=== PATIENT | female | born 1975 | race Caucasian/White ===

== ENCOUNTER 2019-11-08 14:52 | Outpatient (CLI) | payer OTHER, SELFPAY ==
[2019-11-08 15:13] LABS: Hemoglobin A1C 10.4 % (<5.7)
== END 2019-11-08 14:53 | disposition home or self-care (01) ==
LOC: ANHLAB 14:54
PROVIDERS: PCP Family Medicine; Visit Provider Nurse Practitioner Family
DX: E11.9 Type 2 diabetes mellitus without complications (principal)
CPT/HCPCS: 36415; 83036

== ENCOUNTER 2020-02-16 08:32 | Emergency (ER) | payer OTHER, SELFPAY ==
[2020-02-16 08:50] VITALS: BP 153/90; PULSE 86; RESP 16; TEMP 36.4; O2SAT 98
--- NOTE | 2020-02-16 09:04 | ED.GENADULT ---
HPI - General Adult General Chief complaint: Dental/Oral Stated complaint: abscess tooth Time Seen by Provider: 02/16/20 09:04 Source: patient Mode of arrival: ambulatory Limitations: no limitations History of Present Illness HPI narrative: Kelli Layne is a 44 yo female with PMH of uncontrolled DM, hi cholesterol, with facial swelling and dental pain that started 6 hoursago. Recurrent issue with poor dental health Related Data Home Medications Medication Instructions Recorded Confirmed alprazolam [Xanax] 0.5 mg PO QID 02/16/20 02/16/20 insulin glulisine U-100 [Apidra 02/16/20 U-100 Insulin] metformin 1,000 mg PO BID 02/16/20 02/16/20 sertraline [Zoloft] 100 mg PO QID 02/16/20 02/16/20 sitagliptin [Januvia] 100 mg PO DAILY 02/16/20 02/16/20 Allergies Allergy/AdvReac Type Severity Reaction Status Date / Time citalopram Allergy Unknown Unknown Verified 02/16/20 09:11 codeine Allergy Unknown Unknown Verified 02/16/20 09:11 Review of Systems Review of Systems: Narrative: CONSTITUTIONAL: Denies fever, chills, sweats. EYES: Denies visual changes, redness, discharge. ENT: Denies rhinorrhea, congestion, sore throat, otalgia. Left-sided lower jaw swelling, lower back has been CARDIOVASCULAR: Denies chest pain, palpitations, edema. RESPIRATORY: Denies dyspnea, wheezing, cough GASTROINTESTINAL: Denies abdominal pain, nausea, vomiting, diarrhea. GENITOURINARY: Denies dysuria, hematuria, abnormal discharge SKIN: Denies rash or itching. NEUROLOGIC: Denies numbness, or focal weakness. PSYCHIATRIC: Denies anxiety or depression. [facility] Family History Family History Grandparent Cerebrovascular accident Family history of lung cancer Diabetes mellitus Social History Social History Smoking status: Former smoker Alcohol intake: current Gender identity (if verbalized by the patient): Female Comments At time of signature, I agree with nursing past medical, surgical, social and family history. There is no relevant family history pertinent to the presenting complaint. BP elevated with pain today Exam Narrative: Exam Narrative: GENERAL: This is a well-nourished, well-developed patient, in moderate distress. HEAD: normocephalic, atraumatic. EYES: Sclera clear/white. Vision is grossly intact. EARS: External ears normal. Hearing grossly intact. NOSE: External nose normal without nasal discharge, nares without redness, no rhinorrhea. THROAT: Mucous membranes moist, posterior pharynx clear- L lower jaw swelling- from lower teeth blackened with gum erythema NECK: Neck supple, non-tender CARDIOVASCULAR: Regular rate and rhythm without murmurs, gallops, or rubs. RESPIRATORY: Clear to auscultation. Breath sounds equal bilaterally. No wheezes, rales, or rhonchi. GASTROINTESTINAL: Abdomen soft, non-tender, SKIN: warm, intact with no suspicious lesions or rash, good texture and turgor. NEURO: awake, alert, and oriented to person, place and time. There were no obvious focal neurologic abnormalities. Steady gait EXTREMITIES: Normal range of motion. BACK: Nontender without deformity Course Course Emergency Course: Started on amoxicillin and ibuprofen 800 mg 3 times daily Vital Signs Vital signs: Vital Signs Temperature 97.6 F 02/16/20 08:50 Pulse Rate 86 02/16/20 08:50 Respiratory Rate 16 02/16/20 08:50 Blood Pressure 153/90 H 02/16/20 08:50 Pulse Oximetry 98 02/16/20 08:50 Temperature 97.6 F 02/16/20 08:50 Pulse Rate 86 02/16/20 08:50 Respiratory Rate 16 02/16/20 08:50 Blood Pressure 153/90 H 02/16/20 08:50 Pulse Oximetry 98 02/16/20 08:50 Medical Decision Making Differential Diagnosis Differential Diagnosis: Dental pain versus dental abscess versus viral illness Vital Signs Vital Signs: Vital Signs Temperature 97.6 F 02/16/20 08:50 Pulse Rate 86
== END 2020-02-16 09:18 | disposition home or self-care (01) ==
PROVIDERS: Emergency Provider Nurse Practitioner; PCP Family Medicine
DX: K04.7 Periapical abscess without sinus (principal); E78.00 Pure hypercholesterolemia, unspecified; Z87.891 Personal history of nicotine dependence; Z79.4 Long term (current) use of insulin; E11.9 Type 2 diabetes mellitus without complications
CPT/HCPCS: 99213; G0463

== ENCOUNTER 2020-03-12 10:16 | Outpatient (CLI) | payer OTHER, SELFPAY ==
[2020-03-12 11:06] LABS: Hemoglobin 15.7 g/dL (12.0-15.0); Mean Corpuscular HGB Conc 34.1 g/dl (32-36); Mean Corpuscular Hemoglobin 30.1 pg (26-34); Mean Corpuscular Volume 88.3 fl (80-100); Mean Platelet Volume 9.4 fl (7.4-10.4); Platelet Count Result 299 k/mm3 (150-375); Red Blood Count 5.21 M/mm3 (4.2-5.4); Red Cell Distribution Width 12.5 % (11.5-14.5); White Blood Count 11.9 K/mm3 (4.5-10.0)
[2020-03-12 11:16] LABS: Hemoglobin A1C 9.6 % (<5.7)
[2020-03-12 11:17] LABS: Alanine Aminotransferase 16 U/L (4-35); Albumin Level 4.1 g/dL (3.5-5.1); Alkaline Phosphatase 77 U/L (38-126); Aspartate Amino Transferase 18 U/L (14-36); Bilirubin,Total 0.4 mg/dL (0.2-1.3); Blood Urea Nitrogen 14 mg/dL (7-17); Calcium 8.9 mg/dL (8.4-10.2); Carbon Dioxide 30 mmol/L (22-30); Chloride 98 mmol/L (98-107); Cholesterol 308 mg/dL (0-200); Estimated Glomerular Filt Rate > 60; Glucose 302 mg/dL (65-105); HDL Direct 44 mg/dL; Potassium 4.3 mmol/L (3.4-5.0); Sodium 133 mmol/L (137-145); Triglycerides 248 mg/dL (<150)
[2020-03-12 11:28] LABS: LDL Cholesterol Direct 222 mg/dL
== END 2020-03-12 10:17 | disposition home or self-care (01) ==
LOC: ANHLAB 10:17
PROVIDERS: PCP Family Medicine; Visit Provider Nurse Practitioner Family
DX: E78.5 Hyperlipidemia, unspecified (principal); I10 Essential (primary) hypertension; E11.65 Type 2 diabetes mellitus with hyperglycemia; F41.9 Anxiety disorder, unspecified
CPT/HCPCS: 36415; 80053; 80061; 83036; 84443; 85027

== ENCOUNTER 2020-03-27 08:40 | Outpatient (CLI) | payer OTHER, SELFPAY ==
[2020-03-27 09:09] LABS: Basophils Percent Auto 0.4 % (0.2-1.2); Eosinophils Absolute Auto 0.3 K/mm3 (0-0.3); Eosinophils Percent Auto 3.5 % (0-4.4); Hematocrit 44.5 % (37.0-47.0); Hemoglobin 15.1 g/dL (12.0-15.0); Immature Granulocyte Absolute 0.02 K/mm3 (0.00-0.031); Immature Granulocyte Percent A 0.2 % (0-0.5); Lymphocytes Absolute Auto 2.36 K/mm3 (0.9-3.2); Lymphocytes Percent Auto 24.2 % (18.3-44.2); Mean Corpuscular HGB Conc 33.9 g/dl (32-36); Mean Corpuscular Hemoglobin 29.8 pg (26-34); Mean Corpuscular Volume 87.9 fl (80-100); Monocytes Absolute Auto 0.6 K/mm3 (0.1-0.6); Monocytes Percent Auto 6.6 % (2.6-8.5); Neutrophils Absolute Auto 6.3 K/mm3 (1.3-6.7); Neutrophils Percent Auto 65.1 % (45.5-73.1); Platelet Count Result 287 k/mm3 (150-375); Red Blood Count 5.06 M/mm3 (4.2-5.4); Red Cell Distribution Width 12.6 % (11.5-14.5); White Blood Count 9.7 K/mm3 (4.5-10.0)
[2020-03-27 09:32] LABS: Blood Urea Nitrogen 12 mg/dL (7-17); Calcium 8.8 mg/dL (8.4-10.2); Carbon Dioxide 28 mmol/L (22-30); Chloride 99 mmol/L (98-107); Estimated Glomerular Filt Rate > 60; Glucose 307 mg/dL (65-105); Sodium 133 mmol/L (137-145)
[2020-03-27 09:49] LABS: Potassium 4.2 mmol/L (3.4-5.0)
== END 2020-03-27 08:41 | disposition home or self-care (01) ==
PROVIDERS: PCP Family Medicine; Visit Provider Nurse Practitioner Family
DX: D72.9 Disorder of white blood cells, unspecified (principal); E87.1 Hypo-osmolality and hyponatremia
CPT/HCPCS: 36415; 80048; 85025

== ENCOUNTER 2020-04-03 09:28 | Outpatient (CLI) | payer OTHER, SELFPAY ==
--- NOTE | ~2020-04-03 | MM_ITS ---
EXAMINATION: MM screening yana BI w farhad HISTORY: Baseline screening mammogram TECHNIQUE: Craniocaudal and mediolateral oblique 3-D tomosynthesis images were obtained and synthetic 2-D images were generated. CAD analysis was submitted and interpreted. COMPARISON: None, baseline BREAST PARENCHYMAL COMPOSITION: There are scattered areas of fibroglandular density. FINDINGS: Scattered benign-appearing calcifications are present. There is no evidence of suspicious m ass, calcification, or architectural distortion to suggest malignancy in either breast. IMPRESSION: 1. No mammographic evidence of malignancy. 2. Recommend routine screening mammography in one year. BI-RADS Category 2: Benign finding(s). Reviewed, dictated and finalized at location A.
== END 2020-04-03 09:29 | disposition home or self-care (01) ==
PROVIDERS: PCP Family Medicine; Visit Provider Nurse Practitioner Family
DX: Z12.31 Encounter for screening mammogram for malignant neoplasm of breast (principal)
CPT/HCPCS: 77063; 77067

== ENCOUNTER 2020-05-07 09:07 | Outpatient (CLI) | payer OTHER, SELFPAY ==
[2020-05-07 09:39] LABS: Alanine Aminotransferase 15 U/L (4-35); Anion Gap 8 mmol/L (8-16); Blood Urea Nitrogen 10 mg/dL (7-17); Calcium 8.5 mg/dL (8.4-10.2); Carbon Dioxide 26 mmol/L (22-30); Chloride 102 mmol/L (98-107); Cholesterol 174 mg/dL (0-200); Creatine Kinase 35 U/L (30-135); Estimated Glomerular Filt Rate > 60; Glucose 269 mg/dL (65-105); HDL Direct 43 mg/dL; Potassium 4.1 mmol/L (3.4-5.0); Sodium 136 mmol/L (137-145); Triglycerides 172 mg/dL (<150)
[2020-05-07 09:50] LABS: LDL Cholesterol Direct 115 mg/dL
== END 2020-05-07 09:08 | disposition home or self-care (01) ==
PROVIDERS: PCP Family Medicine; Visit Provider Nurse Practitioner Family
DX: E78.5 Hyperlipidemia, unspecified (principal); E87.1 Hypo-osmolality and hyponatremia
CPT/HCPCS: 36415; 80048; 80061; 82550; 84460

== ENCOUNTER 2021-01-27 11:25 | Outpatient (CLI) | payer OTHER, SELFPAY ==
--- NOTE | ~2021-01-27 | XR_ITS ---
EXAMINATION: XR shoulder LT min 2V DATE: 01/27/2021 11:41 INDICATION: Left shoulder pain TECHNIQUE: AP internally and externally rotated, AP oblique externally rotated and axillary views of the left shoulder were obtained. COMPARISON: None FINDINGS: Normal alignment. No fracture. Glenohumeral joint is normal. Mild acromioclavicular osteoarthritis. Soft tissues are unremarkable. Visualized portions of the left lung are clear. IMPRESSION: Mild left acromioclavicular osteoarthritis. Reviewed, dictated and finalized at location A.
== END 2021-01-27 11:26 | disposition home or self-care (01) ==
LOC: ANHIMG 11:27
PROVIDERS: PCP Family Medicine; Visit Provider Nurse Practitioner Family
DX: M19.012 Primary osteoarthritis, left shoulder (principal)
CPT/HCPCS: 73030

== ENCOUNTER 2022-01-29 08:25 | Outpatient (CLI) | payer OTHER, SELFPAY ==
[2022-01-29 08:45] LABS: Hematocrit 41.3 % (37.0-47.0); Hemoglobin 12.9 g/dL (12.0-15.0); Mean Corpuscular HGB Conc 31.2 g/dl (32-36); Mean Corpuscular Hemoglobin 25.7 pg (26-34); Mean Corpuscular Volume 82.3 fl (80-100); Mean Platelet Volume 9.3 fl (7.4-10.4); Platelet Count Result 362 k/mm3 (150-375); Red Blood Count 5.02 M/mm3 (4.2-5.4); Red Cell Distribution Width 14.9 % (11.5-14.5); White Blood Count 9.2 K/mm3 (4.5-10.0)
[2022-01-29 08:53] LABS: Alanine Aminotransferase 11 U/L (4-35); Albumin Level 4.4 g/dL (3.5-5.1); Alkaline Phosphatase 61 U/L (38-126); Anion Gap 8 mmol/L (8-16); Aspartate Amino Transferase 21 U/L (14-36); Bilirubin,Total 0.2 mg/dL (0.2-1.3); Blood Urea Nitrogen 8 mg/dL (7-17); Calcium 8.7 mg/dL (8.4-10.2); Carbon Dioxide 24 mmol/L (22-30); Chloride 104 mmol/L (98-107); Cholesterol 159 mg/dL (0-200); Estimated Glomerular Filt Rate > 60; Glucose 165 mg/dL (65-110); HDL Direct 48 mg/dL; Potassium 3.9 mmol/L (3.4-5.0); Sodium 136 mmol/L (137-145); Triglycerides 146 mg/dL (<150)
[2022-01-29 09:05] LABS: LDL Cholesterol Direct 65 mg/dL
[2022-01-29 09:25] LABS: Vitamin D 25 Hydroxy 21.7 ng/mL
[2022-01-29 09:31] LABS: MALB Creatinine Ratio 19.4 mg/g (0-30); Microalbumin Urine Random 13.6 mg/L (0-16.7)
== END 2022-01-29 08:26 | disposition home or self-care (01) ==
LOC: ANHLAB 08:28
PROVIDERS: PCP Family Medicine; Visit Provider Nurse Practitioner Family
DX: E78.5 Hyperlipidemia, unspecified (principal); I10 Essential (primary) hypertension; F41.9 Anxiety disorder, unspecified; E55.9 Vitamin D deficiency, unspecified
CPT/HCPCS: 36415; 80053; 80061; 82043; 82306; 84443; 85027

== ENCOUNTER 2022-03-15 11:04 | Outpatient (CLI) | payer OTHER, SELFPAY ==
--- NOTE | ~2022-03-15 | XR_ITS ---
EXAMINATION: XR chest 2V DATE: 03/15/2022 11:31 INDICATION: Other fatigue. Weight loss. TECHNIQUE: Frontal and lateral views of the chest were obtained. COMPARISON: Chest 2 views 01/10/2015, chest CT 08/16/06 FINDINGS: The chest demonstrates clear lungs without pneumonia, pleural effusion, or pneumothorax. Th e heart size is normal. IMPRESSION: 1. No acute cardiopulmonary disease. Reviewed, dictated and finalized at location A.
[2022-03-15 11:47] LABS: Hematocrit 40.6 % (37.0-47.0); Mean Corpuscular Hemoglobin 25.3 pg (26-34); Mean Platelet Volume 9.5 fl (7.4-10.4); Platelet Count Result 348 k/mm3 (150-375); Red Blood Count 5.14 M/mm3 (4.2-5.4); Red Cell Distribution Width 15.3 % (11.5-14.5); White Blood Count 10.9 K/mm3 (4.5-10.0)
[2022-03-15 11:55] LABS: Sodium 138 mmol/L (137-145)
[2022-03-15 21:11] LABS: Iron 34 ug/dL (37-170); Percent Iron Saturation 7 % (20-50)
== END 2022-03-15 11:05 | disposition home or self-care (01) ==
PROVIDERS: PCP Family Medicine; Visit Provider Nurse Practitioner Family
DX: R53.83 Other fatigue (principal); R63.4 Abnormal weight loss; E66.9 Obesity, unspecified; E87.1 Hypo-osmolality and hyponatremia
CPT/HCPCS: 36415; 71046; 83540; 83550; 84295; 85027

== ENCOUNTER 2022-03-16 16:37 | Outpatient (CLI) | payer OTHER, SELFPAY ==
[2022-03-16 17:22] LABS: Iron 31 ug/dL (37-170)
[2022-03-16 17:31] LABS: Percent Iron Saturation 6 % (20-50)
== END 2022-03-16 16:38 | disposition home or self-care (01) ==
PROVIDERS: PCP Family Medicine; Visit Provider Nurse Practitioner Family
DX: R53.83 Other fatigue (principal)
CPT/HCPCS: 36415; 83540; 83550

== ENCOUNTER 2022-05-18 10:49 | Outpatient (CLI) | payer OTHER, SELFPAY ==
[2022-05-18 11:38] LABS: Iron 50 ug/dL (37-170)
[2022-05-18 11:56] LABS: Percent Iron Saturation 11 % (20-50)
== END 2022-05-18 10:50 | disposition home or self-care (01) ==
LOC: ANHLAB 10:51
PROVIDERS: PCP Nurse Practitioner Family; Visit Provider Nurse Practitioner Family
DX: D64.9 Anemia, unspecified (principal)
CPT/HCPCS: 36415; 83540; 83550

== ENCOUNTER 2022-07-06 11:25 | Outpatient (CLI) | payer OTHER, SELFPAY ==
--- NOTE | ~2022-07-06 | XR_ITS ---
EXAMINATION: XR foot RT 2V INDICATION: Unspecified open wound of the right foot TECHNIQUE: Two views of the right foot are obtained. COMPARISON: None available FINDINGS: There appears to be a soft tissue defect at the lateral aspect of the foot near the head of the fifth metatarsal. No associated underlying osseous abnormality is seen. There is mild osteoarthr itis of multiple interphalangeal joints. No acute fracture is identified. There is mild irregularity of the distal tibia which could reflect prior injury versus possible benign bone lesion. IMPRESSION: 1. Soft tissue defect at the lateral aspect of the foot in the head of the fifth metatarsal without d efinite underlying osseous abnormality. Reviewed, dictated and finalized at location A. IMPRESSION: 1. Soft tissue defect at the lateral aspect of the foot in the head of the fift h metatarsal without definite underlying osseous abnormality.
== END 2022-07-06 11:26 | disposition home or self-care (01) ==
PROVIDERS: PCP Family Medicine; Visit Provider Nurse Practitioner Family
DX: S91.301A Unspecified open wound, right foot, initial encounter (principal); E11.9 Type 2 diabetes mellitus without complications
CPT/HCPCS: 73620

== ENCOUNTER 2022-08-24 11:34 | Outpatient (CLI) | payer OTHER, SELFPAY ==
[2022-08-24 12:00] LABS: Hematocrit 41.1 % (37.0-47.0); Hemoglobin 13.2 g/dL (12.0-15.0); Mean Corpuscular HGB Conc 32.1 g/dl (32-36); Mean Corpuscular Hemoglobin 28.1 pg (26-34); Mean Corpuscular Volume 87.6 fl (80-100); Mean Platelet Volume 9.4 fl (7.4-10.4); Platelet Count Result 334 k/mm3 (150-375); Red Blood Count 4.69 M/mm3 (4.2-5.4); Red Cell Distribution Width 14.3 % (11.5-14.5); White Blood Count 15.4 K/mm3 (4.5-10.0)
[2022-08-24 12:19] LABS: Alanine Aminotransferase 15 U/L (6-35); Albumin Level 4.7 g/dL (3.5-5.1); Alkaline Phosphatase 57 U/L (38-126); Anion Gap 11 mmol/L (8-16); Aspartate Amino Transferase 23 U/L (14-36); Bilirubin,Total 0.4 mg/dL (0.2-1.3); Blood Urea Nitrogen 9 mg/dL (7-17); Carbon Dioxide 27 mmol/L (22-30); Chloride 103 mmol/L (98-107); Cholesterol 149 mg/dL (0-200); Estimated Glomerular Filt Rate > 60; Glucose 108 mg/dL (65-110); HDL Direct 54 mg/dL; Potassium 3.8 mmol/L (3.4-5.0); Sodium 141 mmol/L (137-145); Triglycerides 111 mg/dL (<150)
[2022-08-24 12:31] LABS: Creatinine Urine 92.1 mg/dL; LDL Cholesterol Direct 66 mg/dL
[2022-08-24 12:51] LABS: Vitamin D 25 Hydroxy 28.9 ng/mL
[2022-08-24 13:08] LABS: Iron 48 ug/dL (37-170)
[2022-08-24 13:19] LABS: Percent Iron Saturation 10 % (20-50)
[2022-08-24 13:36] LABS: MALB Creatinine Ratio 432.9 mg/g (0-30); Microalbumin Urine Random 398.7 mg/L (0-16.7)
== END 2022-08-24 11:35 | disposition home or self-care (01) ==
LOC: ANHLAB 11:36
PROVIDERS: PCP Family Medicine; Visit Provider Nurse Practitioner Family
DX: D64.9 Anemia, unspecified (principal); I10 Essential (primary) hypertension; E78.5 Hyperlipidemia, unspecified; E11.65 Type 2 diabetes mellitus with hyperglycemia; F41.9 Anxiety disorder, unspecified; E55.9 Vitamin D deficiency, unspecified
CPT/HCPCS: 36415; 80053; 80061; 82043; 82306; 83540; 83550; 84443; 85027

== ENCOUNTER 2022-09-29 15:52 | Emergency (ER) | payer OTHER, SELFPAY ==
[2022-09-29 15:53] VITALS: BP 104/86; PULSE 82; RESP 16; TEMP 36.9; O2SAT 100
--- NOTE | 2022-09-29 18:58 | PC.NURSE ---
pt called for room not in lobby
== END 2022-09-29 19:10 | disposition left against medical advice (07) ==
LOC: ANHED 19:07
PROVIDERS: PCP Family Medicine
DX: L84 Corns and callosities (principal)
CPT/HCPCS: 99199

== ENCOUNTER 2022-10-10 13:51 | Emergency (ER) | payer OTHER, SELFPAY ==
[2022-10-10] VITALS (22 sets, daily range): BP systolic 116–153; BP diastolic 56–102; PULSE 100–116; RESP 11–30; TEMP 36.9; O2SAT 98–100
--- NOTE | ~2022-10-10 | CT_ITS ---
EXAMINATION: CT abdomen pelvis w con DATE: 10/10/2022 17:51 INDICATION: Diffuse abdominal pain, nausea and vomiting. TECHNIQUE: Computed tomography (CT) of the abdomen and pelvis was performed with 100 mL Omnipaque-350 intravenous contrast. Automated exposure control and iterative reconstruction technique were employe d. The dose-length product was 710.32 mGy-cm. COMPARISON: None FINDINGS: Lung bases are clear. Heart size is normal. No pericardial or pleural effusion. Focal hepatic steatos is at the ligamentum teres. Gallbladder is dilated to 4.7 cm maximal diameter but without evident wal l thickening or pericholecystic inflammatory stranding to suggest acute cholecystitis. Spleen, pancre as, bilateral adrenal glands and left kidney are normal. 5 mm cyst at the lower pole of the right kid ariane. 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 Alber ls including the appendix are normal. 10 mm hypodense likely fibroid in the posterior uterine fundus. Bladder and bilateral adnexa are unremarkable. No free intraperitoneal gas or fluid. No pathological ly enlarged abdominal or pelvic lymphadenopathy. Mild degenerative skeletal changes in the spine and pelvis. IMPRESSION: 1. Dilation of the gallbladder to 4.5 cm but without wall thickening or pericholecystic inflammatory stranding to suggest acute cholecystitis. Correlate for Gay sign and if clinically indicated could consider further evaluation with right upper quadrant ultrasound or HIDA scan. 2. 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 3. Small uterine fibroid. Reviewed, dictated and finalized at location A. ERY TEAM MEMBER IMPRESSION: 1. Dilation of the gallbladder to 4.5 cm but without wall thickening or pericho lecystic inflammatory stranding to suggest acute cholecystitis. Correlate for M urphy sign and if clinically indicated could consider further evaluation with r ight upper quadrant ultrasound or HIDA scan. 2. 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 3. Small uterine fibroid.
--- NOTE | 2022-10-10 14:22 | ED.GENADULT ---
HPI - General Adult General Chief complaint: Nausea/Vomiting/Diarrhea Stated complaint: n/v, abd pain Source: patient Mode of arrival: EMS Limitations: no limitations History of Present Illness HPI narrative: Patient is a 47-year-old female, w/ PMHx DM, HTN, HLD, who presents the ED via EMS with report of N/V. Patient reports having persistent nausea and vomiting for the last 3 to 4 days. She has been unable to keep down any food or fluids. She states last time she was able to keep anything down was about 5 days ago. She also reports having diffuse mid abdominal pain, loose stool today. She has tried taking Tylenol and ibuprofen at home with minimal relief. Concerned she may be getting dehydrated. She denies any fever, cough or cold symptoms, rectal bleeding, melena, hematemesis, chest pain, difficulty breathing, urinary symptoms. Related Data Allergies Allergy/AdvReac Type Severity Reaction Status Date / Time citalopram Allergy Unknown Unknown Verified 10/10/22 14:03 codeine Allergy Unknown Unknown Verified 10/10/22 14:03 Review of Systems Review of Systems: CONSTITUTIONAL: Denies fever, chills, or sweats. CARDIOVASCULAR: Denies chest pain. RESPIRATORY: Denies cough or dyspnea. GASTROINTESTINAL: See HPI. GENITOURINARY: Denies dysuria or hematuria. MUSCULOSKELETAL: Denies back pain, joint pain, or myalgia. All systems reviewed & are unremarkable except as noted in HPI and below PMFSH Past Medical History Medical History (Updated 10/10/22 @ 20:23 by Tuyet Sheikh PA-C) Adult BMI 32.0-32.9 kg/sq m Anxiety BMI 35.0-35.9,adult BMI 36.0-36.9,adult BMI 38.0-38.9,adult Diabetes mellitus Essential (primary) hypertension Hyperlipidemia Surgical History Surgical History (Updated 10/10/22 @ 15:15 by Tuyet Sheikh PA-C) No pertinent past surgical history Family History Family History Grandparent Cerebrovascular accident Family history of lung cancer Diabetes mellitus Social History Social History Smoking packs per day: 2 Smoking cigarettes per day: 40.0 Years smoked: 25 Smoking pack-years: 50.00 Smoking status: Former smoker Alcohol intake: former Substance use: current Substance use type: marijuana Other substance usage details: smoking, 4x per week Additional living arrangements comments: Gender identity (if verbalized by the patient): Female Sexual Orientation (if Verbalized by the Patient): Straight or Heterosexual Spiritual care concerns: No Agree to blood products: Yes Exam Narrative: GENERAL: Mildly ill appearing, well-nourished, non-toxic, in no acute distress. HEAD: Normocephalic, atraumatic. Thinning hair. EYES: PERRLA/EOMI, conjunctiva clear. ENT: Edentulous. MMs dry. NECK: Supple. No adenopathy, no masses. RESPIRATORY: Airway patent, respirations nonlabored. Clear to auscultation bilaterally, no rales, rhonchi, wheezing. CARDIOVASCULAR: Tachycardic with regular rhythm without murmurs, rubs, or gallops. Radial pulses 2+ and equal bilaterally. ABDOMINAL: Soft, diffuse tenderness to palpation, worst in LLQ and epigastric region, nondistended, no hepatosplenomegaly. Normoactive BS. MUSCULOSKELETAL: Moves all extremities. Strength/ROM intact without gross deformities. SKIN: Warm, dry, normal color. No rashes. Large callous to medial edge of 1st MTP joint of R foot. NEURO: A&O X3. Speech clear. Cranial nerves II-XII grossly intact. No ataxic movements. PSYCHIATRIC: Appropriate mood and affect. Normal interaction. Course Consultations Consultation #1: Discussed case and CT results with Dr. Champion, gen surg, advised GB could be distended due to fasting. Patient can f/u in office for further eval. Date: 10/10/22 Vital Signs Vital signs: Vital Signs Temperature 98.5 F 10/10/22 13:53 Pulse Rate 102 H 10/10/22 13:53 Respiratory R
[2022-10-10 14:32] LABS: Basophils Absolute Auto 0.1 K/mm3 (0.0-0.1); Basophils Percent Auto 0.5 % (0.2-1.2); Eosinophils Percent Auto 0.1 % (0-4.4); Hematocrit 44.1 % (37.0-47.0); Hemoglobin 13.9 g/dL (12.0-15.0); Immature Granulocyte Absolute 0.07 K/mm3 (0.00-0.031); Immature Granulocyte Percent A 0.5 % (0-0.5); Lymphocytes Absolute Auto 2.52 K/mm3 (0.9-3.2); Lymphocytes Percent Auto 16.7 % (18.3-44.2); Mean Corpuscular HGB Conc 31.5 g/dl (32-36); Mean Corpuscular Hemoglobin 26.6 pg (26-34); Mean Corpuscular Volume 84.5 fl (80-100); Mean Platelet Volume 9.3 fl (7.4-10.4); Monocytes Absolute Auto 0.7 K/mm3 (0.1-0.6); Monocytes Percent Auto 4.8 % (2.6-8.5); Neutrophils Absolute Auto 11.7 K/mm3 (1.3-6.7); Neutrophils Percent Auto 77.4 % (45.5-73.1); Platelet Count Result 438 k/mm3 (150-375); Red Blood Count 5.22 M/mm3 (4.2-5.4); Red Cell Distribution Width 14.5 % (11.5-14.5); White Blood Count 15.1 K/mm3 (4.5-10.0)
[2022-10-10 14:41] LABS: Appearance Urine Cloudy (Clear); Bilirubin Urine 3+ (Negative); Blood Urine 2+ (Negative); Color Urine Yellow (Yellow); Glucose Urine UA 2+ mg/dL (Negative); Ketones Urine 4+ mg/dL (Negative); Leukocyte Esterase Ur Negative LEU/UL (Negative); Nitrate Urine Negative (Negative); Protein Urine 3+ mg/dL (Negative); Specific Grav Ur >= 1.030 (1.001-1.035); Urobilinogen Urine 0.2 mg/dL (<2.0)
[2022-10-10 14:55] LABS: Alanine Aminotransferase 28 U/L (6-35); Albumin Level 5.4 g/dL (3.5-5.1); Alkaline Phosphatase 82 U/L (38-126); Anion Gap 25 mmol/L (8-16); Aspartate Amino Transferase 25 U/L (14-36); Bilirubin,Total 0.7 mg/dL (0.2-1.3); Blood Urea Nitrogen 14 mg/dL (7-17); Carbon Dioxide 15 mmol/L (22-30); Chloride 96 mmol/L (98-107); Estimated CRCL calculation 55 ml/min; Estimated Glomerular Filt Rate 53; Glucose 168 mg/dL (65-110); Lipase 107 U/L (23-300); Potassium 3.4 mmol/L (3.4-5.0); Sodium 136 mmol/L (137-145)
[2022-10-10] MEDS: SODIUM CHLORIDE 0.9% IV 1,000 ML 999 ML IV CONT ×3 (14:59→17:21)
[2022-10-10 15:00] LABS: Bacteria Urine Trace /hpf; Mucus Urine Moderate /lpf; Squamous Epithelial Cell Urine Many /hpf (Few); WBC Urine 21-30 /hpf
[2022-10-10] MEDS: ONDANSETRON INJ 4 MG/2 ML VIAL IV PUSH ×2 (15:00→17:22)
[2022-10-10 15:03] LABS: Add Urine Microscopic? YES
[2022-10-10 15:38] LABS: Alveolar/Arterial O2 Gradient 24.5 mmHg; Base Excess ABG -10.4 mEq/l (+/-2.0); Carboxyhemoglobin 0.9 % THb (0-2.0); Fractional Inspired Oxygen 21 %; HCO3 ABG 14.5 mEq/l (22.0-26.0); Methemoglobin ABG 0.1 %THb (0-1.5); Modified Allen's Test Pass; Oxygen Content ABG 16.5 %vol (16.0-22.0); Oxygen Saturation ABG 96.3 % (95.0-100.0); PCO2 ABG 29.5 mmHg (35.0-45.0); PO2 ABG 89.9 mmHg (80.0-100.0); PO2 FiO2 Ratio Arterial Blood 4.28 %; Site Drawn RIGHT RADIAL; Total Hemoglobin 12.4 g/dL (12.0-18.0)
[2022-10-10 15:39] LABS: Device ROOM AIR
[2022-10-10 16:14] LABS: Magnesium 2.2 mg/dL (1.6-2.3); Phosphorus 4.6 mg/dL (2.5-4.5)
[2022-10-10 16:18] LABS: Influenza A QL RT-PCR Negative (Negative); Influenza B QL RT-PCR Negative (Negative); SARS-CoV-2 RNA PCR Negative
[2022-10-10 16:35] LABS: Hemoglobin A1C 6.3 % (<5.7)
[2022-10-10 16:48] LABS: Beta-Hydroxybutyrate/Acetoacetate 5.76 mmol/L (0.02-0.27)
[2022-10-10] MEDS: MORPHINE SULFATE (*CRX) 4 MG/ML INJ IV PUSH ×2 (17:22→20:20)
[2022-10-10 17:34] LABS: Pregnancy On Board Control Positive; Urine Pregnancy Test Negative
[2022-10-10 18:51] LABS: Anion Gap 16 mmol/L (8-16); Blood Urea Nitrogen 13 mg/dL (7-17); Calcium 8.2 mg/dL (8.4-10.2); Carbon Dioxide 17 mmol/L (22-30); Chloride 102 mmol/L (98-107); Estimated CRCL calculation 66 ml/min; Estimated Glomerular Filt Rate > 60; Glucose 107 mg/dL (65-110); Potassium 3.2 mmol/L (3.4-5.0); Sodium 135 mmol/L (137-145)
[2022-10-10] MEDS: POTASSIUM CHLORIDE 20 MEQ TABLET 40 MEQ PO (20:20)
[2022-10-10] MEDS: PANTOPRAZOLE SODIUM IV 40 MG VIAL IV PUSH (20:20)
[2022-10-10] MEDS: DICYCLOMINE HCL 10 MG CAPSULE 20 MG PO (20:25)
== END 2022-10-10 21:05 | disposition home or self-care (01) ==
PROVIDERS: Emergency Provider Physician Assistant; PCP Family Medicine
DX: R11.2 Nausea with vomiting, unspecified (principal); E86.0 Dehydration; R93.2 Abnormal findings on diagnostic imaging of liver and biliary tract; R82.998 Other abnormal findings in urine; Z20.822 Contact with and (suspected) exposure to COVID-19; E78.5 Hyperlipidemia, unspecified; E11.9 Type 2 diabetes mellitus without complications; I10 Essential (primary) hypertension; Z87.891 Personal history of nicotine dependence; Z79.84 Long term (current) use of oral hypoglycemic drugs; D25.9 Leiomyoma of uterus, unspecified; Q62.5 Duplication of ureter
CPT/HCPCS: 36415; 36600; 74177; 80048; 80053; 81001; 81025; 82010; 82375; 82805; 83036; 83050; 83605; 83690; 83735; 84100; 85025; 87086; 87088; 87636; 96361; 96374; 96375; 96376; 99284; A9270; C9113; J0131; J2270; J2405; J7030; Q9967

== ENCOUNTER 2022-10-11 20:54 | Inpatient (IN) | payer OTHER, SELFPAY ==
--- NOTE | ~2022-10-11 | NM_ITS ---
History: Abdominal pain Interpretation: Following intravenous administration of 4.7 mCi. of Technetium-Mebrofenin, serial grace ges obtained reveal prompt concentration by the liver which is normal in size and without any focal a bnormalities. There is normal excretion from the liver. The gallbladder and small bowel are visuali zed by 60 minutes. At 60 minutes the patient intravenously received 0.02 mcg/kg of CCK and 30 cc normal saline delivered by palm over 60 minutes. The patient was imaged for approximately the next 40 minutes. Regions of in terest were drawn about the gallbladder and background and gallbladder ejection fraction calculated. The gallbladder ejection fraction measures 1%. ( GBEF will measure > or = 49%, in 95% of normals. GBEF will measure > or= 38% in 99% of normals ) Impression: Normal hepatobiliary scan. No evidence of cystic duct or common bile duct obstruction. This effecti vely excludes acute cholecystitis. Markedly decreased gallbladder ejection fraction. Findings suggest biliary dyskinesia. Kelly et al.,Sincalide-Stimulated Cholescintigraphy: A Multicenter Investigation to Determine Opti mal Infusion Methodology and Gallbladder Ejection Fraction Normal Values. JNM. Vol 51. No.2. Oct 2009 . . Reviewed, dictated and finalized at location M. MANAGER Impression: Normal hepatobiliary scan. No evidence of cystic duct or common bile duct obst ruction. This effectively excludes acute cholecystitis. Markedly decreased gallbladder ejection fraction. Findings suggest biliary dysk inesia. Kelly et al.,Sincalide-Stimulated Cholescintigraphy: A Multicenter Investiga tion to Determine Optimal Infusion Methodology and Gallbladder Ejection Fractio n Normal Values. JNM. Vol 51. No.2. Oct 2009. .
--- NOTE | ~2022-10-11 | US_ITS ---
Limited Abdominal Sonogram: Real-time sonographic imaging of the right upper quadrant was performed. Clinical History: Cholecystitis Findings: The liver appears normal with no evidence of mass lesion or bile duct dilatation. Main por carrie vein demonstrates normal direction of flow. The gallbladder is well distended, and appears normal with no evidence of gallstone or wall thickening. The common bile duct measures 3 mm. The visualize d pancreas, aorta, and IVC are unremarkable. Impression: No significant abnormality seen. Reviewed, dictated and finalized at location . CTOR OF PUBLIC RELATIONS Impression: No significant abnormality seen.
--- NOTE | ~2022-10-11 | XR_ITS ---
EXAMINATION: XR abdomen NG/feed tube insert DATE: 10/12/2022 18:38 INDICATION: Nasogastric tube placement. TECHNIQUE: A semiupright view of the abdomen was obtained. COMPARISON: CT abdomen and pelvis 10/10/2022 FINDINGS: The lower abdomen is excluded. There are no dilated loops of bowel. The nasogastric tube ti p is in the stomach. IMPRESSION: 1. Nasogastric tube tip in the stomach. Reviewed, dictated and finalized at location A. ULTING APPLICATION ENGINEER
--- NOTE | ~2022-10-11 | NM_ITS ---
EXAM: NM gastric emptying study DATE: 10/14/2022 13:02 INDICATION: Protracted vomiting TECHNIQUE: A gastric emptying study was performed using the methodology of Kelly DHALIWAL, et al. J Nucl Med 2007; 48:568-572. The patient was given a meal consisting of 2 scrambled eggs labeled with 1.019 mCi Tc-99m sulfur colloid, 2 slices of toast, two packages of jam, and approximately 120 mL of water . Simultaneous anterior and posterior 1-min images of the abdomen were obtained with the patient supi ne at multiple time points over a total period of 4 hours. The geometric mean of anterior and posteri or views was determined, and the percentage retention was calculated for each time point. COMPARISON: None. FINDINGS: Gastric retention of the radiotracer-labeled meal was 46%, 42%, and 31% at the 1-hour, 2-hour, and 4- hour time points, respectively. With this technique, apparent rapid gastric emptying is suggested by <30% gastric retention at 1 hour. Delayed gastric emptying is defined by gastric retention of >90% at 1 hour, >60% retention at 2 hours, or >10% retention at 4 hours. IMPRESSION: 1. Delayed gastric emptying. Reviewed, dictated and finalized at location A. OLEUM INSPECTOR SUPERVISOR
[2022-10-11 21:16] VITALS: BP 130/78; PULSE 116; RESP 20; TEMP 36.3; O2SAT 100
[2022-10-11 21:50] VITALS: BP 131/67; PULSE 96; RESP 12; O2SAT 100
[2022-10-11] MEDS: SODIUM CHLORIDE 0.9% IV 1,000 ML 999 ML IV CONT (21:55)
[2022-10-11] MEDS: ONDANSETRON INJ 4 MG/2 ML VIAL IV PUSH (21:56)
[2022-10-11] MEDS: MORPHINE SULFATE (*CRX) 4 MG/ML INJ IV PUSH (21:58)
[2022-10-11 22:01] VITALS: BP 134/63; PULSE 80; RESP 14; O2SAT 100
[2022-10-11 22:05] LABS: Basophils Percent Auto 0.3 % (0.2-1.2); Eosinophils Percent Auto 0.1 % (0-4.4); Hematocrit 41.3 % (37.0-47.0); Hemoglobin 12.9 g/dL (12.0-15.0); Immature Granulocyte Absolute 0.04 K/mm3 (0.00-0.031); Immature Granulocyte Percent A 0.3 % (0-0.5); Lymphocytes Percent Auto 15.4 % (18.3-44.2); Mean Corpuscular HGB Conc 31.2 g/dl (32-36); Mean Corpuscular Hemoglobin 26.6 pg (26-34); Mean Corpuscular Volume 85.2 fl (80-100); Mean Platelet Volume 9.5 fl (7.4-10.4); Monocytes Absolute Auto 0.5 K/mm3 (0.1-0.6); Monocytes Percent Auto 3.6 % (2.6-8.5); Neutrophils Absolute Auto 9.9 K/mm3 (1.3-6.7); Neutrophils Percent Auto 80.3 % (45.5-73.1); Platelet Count Result 376 k/mm3 (150-375); Red Blood Count 4.85 M/mm3 (4.2-5.4); White Blood Count 12.3 K/mm3 (4.5-10.0)
[2022-10-11 22:16] LABS: Alanine Aminotransferase 16 U/L (6-35); Albumin Level 4.8 g/dL (3.5-5.1); Alkaline Phosphatase 68 U/L (38-126); Anion Gap 23 mmol/L (8-16); Aspartate Amino Transferase 22 U/L (14-36); Bilirubin,Total 0.5 mg/dL (0.2-1.3); Blood Urea Nitrogen 12 mg/dL (7-17); Calcium 9.4 mg/dL (8.4-10.2); Carbon Dioxide 12 mmol/L (22-30); Chloride 105 mmol/L (98-107); Estimated CRCL calculation 62 ml/min; Estimated Glomerular Filt Rate 59; Glucose 139 mg/dL (65-110); Lipase 105 U/L (23-300); Potassium 3.5 mmol/L (3.4-5.0); Sodium 140 mmol/L (137-145)
[2022-10-11 22:17] LABS: INR 1.2; Partial Thromboplastin Time 28.5 SECONDS (22.3-36.8); Prothrombin Time 14.6 Seconds (11.1-14.7)
[2022-10-11 23:01] VITALS: BP 117/73; PULSE 69; RESP 15; O2SAT 100
[2022-10-12] VITALS (13 sets, daily range): BP systolic 109–140; BP diastolic 55–78; PULSE 66–114; RESP 13–19; TEMP 36.2–36.6; O2SAT 93–100
--- NOTE | 2022-10-12 00:04 | ED.NAVMDI ---
HPI - Nausea/Vomiting/Diarrhea General Chief complaint: Nausea/Vomiting/Diarrhea Stated complaint: vomiting all day Time Seen by Provider: 10/11/22 21:23 History of Present Illness HPI Narrative: Patient is a 47-year-old female who presents ER with nausea and vomiting and right upper quadrant abdominal pain. Was seen in the ER yesterday 10/10/[address] scan that showed a distended gallbladder. She is supposed to follow-up in the morning with her PCP on 10/12/2022 for further evaluation. Patient has had persistent pain and vomiting despite taking Zofran and Bentyl. No fever chills or sweats. No alleviating factors of the pain. Cannot eat. Related Data Allergies Allergy/AdvReac Type Severity Reaction Status Date / Time citalopram Allergy Unknown Unknown Verified 10/11/22 20:54 codeine Allergy Unknown Unknown Verified 10/11/22 20:54 Review of Systems Review of Systems: All systems reviewed & are unremarkable except as noted in HPI and below Constitutional: Constitutional: Denies chills, Reports fatigue and Denies fever(s) ENT: Denies nasal congestion and Denies sore throat Cardiovascular: Cardiovascular: Denies chest pain and Denies radiating jaw, neck or arm pain Gastrointestinal: Gastrointestinal: Reports abdominal pain, Denies diarrhea, Reports nausea and Reports vomiting Genitourinary: Genitourinary: Denies nocturia and Denies dysuria [facility] Past Medical History Medical History (Updated 10/12/22 @ 07:30 by Neil Gutierrez MD) Adult BMI 32.0-32.9 kg/sq m Anxiety BMI 35.0-35.9,adult BMI 36.0-36.9,adult BMI 38.0-38.9,adult Diabetes mellitus Essential (primary) hypertension Hyperlipidemia Surgical History Surgical History (Updated 10/10/22 @ 15:15 by Tuyet Sheikh PA-C) No pertinent past surgical history Family History Family History Grandparent Cerebrovascular accident Family history of lung cancer Diabetes mellitus Social History Social History Smoking packs per day: 2 Smoking cigarettes per day: 40.0 Years smoked: 25 Smoking pack-years: 50.00 Smoking status: Former smoker Tobacco type: cigarettes Alcohol intake: never Substance use: current Substance use type: marijuana Other substance usage details: smoking, 4x per week Last use: 10/07/2022 Lack of Transportation: No Lack of Food: Never True Current Housing: I Have Housing Concerned About Future Housing: No Difficulty Paying Gas/Electric Bills: No Difficulty Paying for Meds: No Currently Unemployed: No Education: High School Diploma/GED Difficulty w/ Childcare or Family Care: No Additional living arrangements comments: Gender identity (if verbalized by the patient): Female Sexual Orientation (if Verbalized by the Patient): Straight or Heterosexual Spiritual care concerns: No Agree to blood products: Yes Exam Narrative: GENERAL: Uncomfortable-appearing, well-nourished, and in no acute distress. HEAD: Normocephalic, atraumatic. EYES: PERRL and EOMI. ENT: Mucous membranes moist. CHEST: Clear to auscultation. No respiratory distress. HEART: Regular rate and rhythm. Normal peripheral pulses. ABDOMEN: Soft, TTP to the RUQ with + ernesto's, nondistended. EXTREMITIES: Normal range of motion. No edema. SKIN: Warm, dry, no rash. NEURO: Alert and oriented x3. PSYCH: Normal mood and affect. Course Course Emergency Course: Patient still with intermittent pain and persistent nausea/vomiting. White blood cell count improved. Suspect patient will need a HIDA scan or ultrasound for further evaluation of her discomfort. LFTs normal. Vital Signs Vital signs: Vital Signs Temperature 97.3 F L 10/11/22 21:16 Pulse Rate 116 H 10/11/22 21:16 Respiratory Rate 20 10/11/22 21:16 Blood Pressure 130/78 10/11/22 21:16 Pulse Oximetry 100 10/11/22 21:16
[2022-10-12] MEDS: SODIUM CHLORIDE 0.9% IV 1,000 ML 125 ML IV CONT ×3 (02:31→17:22)
[2022-10-12 03:08] LABS: Influenza A QL RT-PCR Negative (Negative); Influenza B QL RT-PCR Negative (Negative); RSV RNA, RT-PCR Negative (Negative); SARS-CoV-2 RNA PCR Negative
[2022-10-12] MEDS: ONDANSETRON INJ 4 MG/2 ML VIAL IV PUSH ×2 (04:05→06:58)
--- NOTE | 2022-10-12 04:30 | ADMGEN ---
This patient, Kelli Garduno, was admitted to [facility] Surg Room 314-02. Patient/family oriented to hospital policies and general routines including ID bracelet, bed and alarms, visiting hours, pain management, procedures, bathroom and other care routines, personal items, smoking policy, room service/diet, and visiting hours. Information on how to activate the Rapid Response Team has been discussed. Patient/Family are encouraged to report perceived risks to care and to ask questions if they do not understand what they are told or what they should do.
--- NOTE | 2022-10-12 07:15 | PM.IMHP ---
H&P: HPI History of Present Illness Date/Time: 10/12/22 07:15 Chief Complaint: uncontrolled nausea, vomiting, and abdominal pain Narrative: Patient is a 47-year-old female with a past medical history diabetes, hypertension, hyperlipidemia who presented to the ED for complaints of right upper quadrant pain, uncontrolled nausea vomiting. Patient was in the ER on 10/10/2022 for the same complaint was given Bentyl and Zofran. Patient did state that the Zofran was helping for 2-3 hours however she was unable to eat and is still profusely vomiting. Patient stated that she has been thrown up for 4 days and that most of this started on Tuesday. She stated the vomit has been clear and then turned to dark brown. She stated that her pain is in the right side mostly and lower is more for cramp. right upper quadrant pain she stated was dull radiating to sharp. Patient currently rates her pain a 7/10. Patient stated that she has not been eating and has not eaten anything in 4-5 days. She denies any recent or past experiences of the same thing. She does endorse chills. Last bowel movement was 10/11 and she stated was soft. She also gets lightheaded and dizzy with standing. CT of the abdomen pelvis from 10/10/2022 does show dilatation of the gallbladder to 4.5 cm without wall thickening or pericholecystic inflammatory stranding to suggest acute cholecystitis. Patient is positive for Gay sign. HIDA scan has been ordered. White blood cell count is 12.3. Liver enzymes are not elevated at this time. Patient is being admitted to the hospitalist service under observation. Review of Systems Review of Systems: All systems reviewed & are unremarkable except as noted in HPI and below PMFSH Past Medical History Medical History Adult BMI 32.0-32.9 kg/sq m Anemia Anxiety Callus of foot Diabetes mellitus Essential (primary) hypertension Hives Hyperlipidemia Hyponatremia Hypotension Neuropathy Open wound of plantar aspect of foot Type 2 diabetes mellitus without complications Vitamin D deficiency Weight loss Surgical History Surgical History No pertinent past surgical history Family History Family History Grandparent Cerebrovascular accident Family history of lung cancer Diabetes mellitus Social History Social History (Updated 10/12/22 @ 07:44 by AMOL Menon) Social History: Patient lives with her Laz who will be her surrogate. She has 2 boys and wishes to be a full code at this time. Patient also has 2 cats at home Smoking packs per day: 2 Smoking cigarettes per day: 40.0 Years smoked: 25 Smoking pack-years: 50.00 Smoking status: Former smoker Tobacco type: cigarettes Additional smoking assessment comments: Quit about 12 years ago Alcohol intake: never Substance use: current Substance use type: marijuana Other substance usage details: smoking, 4x per week Last use: 10/07/2022 Lack of Transportation: No Lack of Food: Never True Current Housing: I Have Housing Concerned About Future Housing: No Difficulty Paying Gas/Electric Bills: No Difficulty Paying for Meds: No Currently Unemployed: No Education: High School Diploma/GED Difficulty w/ Childcare or Family Care: No Additional living arrangements comments: Additional occupation/education comments: House Gender identity (if verbalized by the patient): Female Sexual Orientation (if Verbalized by the Patient): Straight or Heterosexual Spiritual care concerns: No Agree to blood products: Yes Meds Home Medications and Allergies Home Medications Medication Instructions Recorded Confirmed Type blood-glucose meter (OneTouch #1 ea 01/28/22 10/12/22 Rx Ultra2 Meter kit) albuterol sulfate 90 mcg/actuation 1 inh inhalati
[2022-10-12 13:00] LABS: Glucose Point of Care 118 mg/dl (65-105)
[2022-10-12] MEDS: SODIUM CHLORIDE 0.9% IV 1,000 ML 999 ML IV CONT (13:01)
[2022-10-12] MEDS: PANTOPRAZOLE SODIUM IV 40 MG VIAL IV PUSH ×2 (13:02→20:23)
--- NOTE | 2022-10-12 14:22 | WPDGICN ---
Assessment and Plan Assessment and plan (1) Right upper quadrant abdominal pain: Code(s): R10.11 - Right upper quadrant pain Status: Acute Assessment and Plan: Patient with right upper quadrant pain CT scan shows a dilated gallbladder. HIDA scan with minimal ejection fraction suggesting acalculous cholecystitis. Plan for surgical consultation. She may benefit from cholecystectomy. (2) Nausea & vomiting: Code(s): R11.2 - Nausea with vomiting, unspecified Status: Acute Assessment and Plan: Patient with protracted nausea vomiting of 1 weeks duration. Plan to make patient NPO. Will give her an NG tube. She may benefit from trial of Reglan but will defer this till after seen by surgery for possible acalculous cholecystitis. Will follow with you. Continue IV hydration as dehydration may also be contributing to her protracted nausea and vomiting. (3) Diabetes mellitus: Code(s): E11.9 - Type 2 diabetes mellitus without complications Status: Acute Assessment and Plan: Patient with a long history of diabetes. She only notes minimal numbness to her feet. Gastroparesis is a consideration. Gastric emptying scan will be considered if symptoms persist over the next several days. Will wait for some initial surgical consultation because of abnormal HIDA scan initially. (4) Poor dentition: Code(s): K08.9 - Disorder of teeth and supporting structures, unspecified Status: Acute (5) Abnormal biliary HIDA scan: Code(s): R94.8 - Abnormal results of function studies of other organs and systems Status: Acute Assessment and Plan: Low ejection fraction on HIDA scan suggest possible acalculous cholecystitis. Surgery will be asked to evaluate. GI Consult Note Consult date/time: 10/12/22 14:22 Reason for consult: Protracted nausea vomiting and right upper quadrant pain HPI: Kelli Garduno is a 47 year old female I am asked to see because of nausea vomiting that has been present for 1 week. Patient reports that over the last week has had significant nausea vomiting. She is unable to keep food down. She will vomiting even on an empty stomach typically gastric juices. She has had no fever. She denies any recent travel. No one else in the family has been ill. There has been no change in medications. She went to the emergency room 2 days ago was allowed to go home. But returned this morning because recurrent nausea vomiting and right upper quadrant pain. Patient has a past medical history of diabetes mellitus. She only has mild numbness in her feet. She does report developing a corn on the outside 1 of her feet. She has a past medical history of diabetes mellitus for many years. CT scan of the abdomen was unremarkable however gallbladder was dilated HIDA scan today reveals minimal ejection fraction suggesting acalculous cholecystitis. Review of Systems Review of Systems: Review of systems noncontributory. [facility] Past Medical History Medical History Adult BMI 32.0-32.9 kg/sq m Anemia Anxiety Callus of foot Diabetes mellitus Essential (primary) hypertension Hives Hyperlipidemia Hyponatremia Hypotension Neuropathy Open wound of plantar aspect of foot Type 2 diabetes mellitus without complications Vitamin D deficiency Weight loss Surgical History Surgical History No pertinent past surgical history Family History Family History Grandparent Cerebrovascular accident Family history of lung cancer Diabetes mellitus Social History Social History (Updated 10/12/22 @ 07:44 by AMOL Menon) Social History: Patient lives with her Laz who will be her surrogate. She has 2 boys and wishes to be a full code at this time. Patient also has 2 cats at [facility]
[2022-10-12 16:56] LABS: Glucose Point of Care 153 mg/dl (65-105)
[2022-10-12] MEDS: MORPHINE SULFATE (*CRX) 2 MG/ML INJ IV PUSH (20:21)
[2022-10-12 21:08] LABS: Glucose Point of Care 107 mg/dl (65-105)
[2022-10-13] MEDS: SODIUM CHLORIDE 0.9% IV 1,000 ML 125 ML IV CONT ×3 (00:19→15:55)
[2022-10-13 06:00] VITALS: BP 122/62; PULSE 92; RESP 18; TEMP 36.1; O2SAT 99
[2022-10-13 06:04] LABS: Basophils Percent Auto 0.1 % (0.2-1.2); Eosinophils Percent Auto 0.1 % (0-4.4); Hematocrit 36.7 % (37.0-47.0); Hemoglobin 11.6 g/dL (12.0-15.0); Immature Granulocyte Absolute 0.12 K/mm3 (0.00-0.031); Immature Granulocyte Percent A 0.8 % (0-0.5); Lymphocytes Absolute Auto 2.22 K/mm3 (0.9-3.2); Lymphocytes Percent Auto 15.6 % (18.3-44.2); Mean Corpuscular HGB Conc 31.6 g/dl (32-36); Mean Corpuscular Hemoglobin 27.2 pg (26-34); Mean Corpuscular Volume 85.9 fl (80-100); Mean Platelet Volume 9.1 fl (7.4-10.4); Monocytes Absolute Auto 1.2 K/mm3 (0.1-0.6); Monocytes Percent Auto 8.6 % (2.6-8.5); Neutrophils Absolute Auto 10.6 K/mm3 (1.3-6.7); Neutrophils Percent Auto 74.8 % (45.5-73.1); Platelet Count Result 290 k/mm3 (150-375); Red Blood Count 4.27 M/mm3 (4.2-5.4); Red Cell Distribution Width 15.6 % (11.5-14.5); White Blood Count 14.2 K/mm3 (4.5-10.0)
[2022-10-13 06:26] LABS: Alanine Aminotransferase 10 U/L (6-35); Albumin Level 3.8 g/dL (3.5-5.1); Alkaline Phosphatase 53 U/L (38-126); Anion Gap 15 mmol/L (8-16); Aspartate Amino Transferase 16 U/L (14-36); Bilirubin,Total 0.3 mg/dL (0.2-1.3); Blood Urea Nitrogen 9 mg/dL (7-17); Calcium 8.1 mg/dL (8.4-10.2); Carbon Dioxide 13 mmol/L (22-30); Chloride 112 mmol/L (98-107); Estimated CRCL calculation 68 ml/min; Estimated Glomerular Filt Rate > 60; Glucose 89 mg/dL (65-110); Magnesium 2.1 mg/dL (1.6-2.3); Potassium 2.7 mmol/L (3.4-5.0); Sodium 140 mmol/L (137-145)
--- NOTE | 2022-10-13 07:51 | WPDGIPROGNO ---
Progress Note: A&P Assessment and Plan (1) Nausea & vomiting: Code(s): R11.2 - Nausea with vomiting, unspecified Status: Acute Assessment and Plan: Nausea and vomiting have improved with NG tube decompression. Significant return obtain. Plan to clamp NG tube today. Consider gastric emptying scan to exclude diabetic gastroparesis. Will perform this electively after surgery has seen patient to evaluate gallbladder disease. (2) Abnormal biliary HIDA scan: Code(s): R94.8 - Abnormal results of function studies of other organs and systems Status: Acute Assessment and Plan: Very low, almost absent ejection fraction on HIDA scan raises the question of acalculous cholecystitis. Surgery to evaluate patient today. Patient had dilated gallbladder noted on initial imaging studies. No gallstones noted however. (3) Diabetes mellitus: Code(s): E11.9 - Type 2 diabetes mellitus without complications Status: Acute Assessment and Plan: Patient with diabetes mellitus. She may have underlying diabetic gastroparesis. (4) Right upper quadrant abdominal pain: Code(s): R10.11 - Right upper quadrant pain Status: Acute Assessment and Plan: Right upper quadrant pain concern for gallbladder dysfunction. This is improved today after NG tube decompression however. Subjective Date/time seen: 10/13/22 07:51 Interval history: Patient alert this morning. Much more comfortable. NG tube in place. Significant return obtain. No bowel movement noted recently. Review of Systems Review of Systems: Review of systems noncontributory. Exam Narrative: Physical exam reveals patient be alert somewhat comfortable. NG tube in place. Vital signs stable she is afebrile and anicteric. Lungs are clear. Heart without murmur. Abdomen bowel sounds present soft nontender this morning. No obvious organomegaly. Objective Data Vital Signs Vital Signs: Vital Signs - 24 hr 10/12/22 08:00 10/12/22 14:00 10/12/22 20:00 Temperature 97.6 F Pulse Rate 114 H 100 Respiratory Rate 14 15 Blood Pressure 109/61 Pulse Oximetry 100 100 Oxygen Delivery Room Air Room Air 10/12/22 22:00 10/13/22 06:00 Temperature 97.9 F 96.9 F L Pulse Rate 102 H 92 Respiratory Rate 18 18 Blood Pressure 118/67 122/62 Pulse Oximetry 99 99 Oxygen Delivery Intake/Output Intake/Output: Intake & Output 01/15/23 10/11/22 10/12/22 10/13/22 23:59 23:59 23:59 23:59 Intake Total 1000 3291 1000 Output Total 450 Balance 1000 3291 550 Meds/Results Medications: Active Medications Generic Name Dose Route Start Last Admin Trade Name Freq PRN Reason Stop Dose Admin Acetaminophen 650 mg 10/12/22 08:04 Acetaminophen 325 Mg Tablet PO Q4H PRN Mild Pain (1-3) or Fever Hydrocodone Bitart/Acetaminophen 1 tab 10/12/22 08:04 Hydrocodone/Acetaminophen (*Crx) 5-325 Mg Tablet PO Q4H PRN Moderate Pain (4-6) Albuterol 1 puff 10/12/22 08:08 Albuterol Sulfate (*Sp) Aerosol 1 Puff INHALATION Q4H PRN shortness of breath or wheezing Hydralazine HCl 10 mg 10/12/22 08:04 Hydralazine Hcl 20 Mg/Ml Vial IV PUSH Q8H PRN Blood Pressure - High Sodium Chloride 1,000 mls @ 125 mls/hr 10/12/22 01:00 10/13/22 00:19 Normal Saline Iv IV CONT 125 mls/hr .Q8H NADJA Administration Morphine Sulfate 2 mg 10/12/22 08:04 10/12/22 20:21 Morphine Sulfate (*Crx) 2 Mg/Ml Inj IV PUSH 2 mg Q4H PRN Administration Pain Rated 7-10 Ondansetron HCl 4 mg 10/12/22 00:56 10/12/22 06:58 Ondansetron Inj 4 Mg/2 Ml Vial IV PUSH 4 mg Q4H PRN Administration Nausea Pantoprazole Sodium 40 mg 10/12/22 09:00 10/12/22 20:23 Pantoprazole Sodium Iv 40 Mg Vial IV PUSH 40 mg Q12HR NADJA Administration Radiology Results: ITS Impressions Hepatobiliary Scan Nuclear Medicine 10/12/22 13:03 Impression: Normal
[2022-10-13] MEDS: PANTOPRAZOLE SODIUM IV 40 MG VIAL IV PUSH ×2 (08:26→21:09)
[2022-10-13] MEDS: POTASSIUM CHLORIDE 20 MEQ PACKET (FOR LIQUID) 60 MEQ PO (08:26)
--- NOTE | 2022-10-13 09:47 | P.PNIM_ITS ---
Progress Note: A&P Assessment and Plan (1) Right upper quadrant abdominal pain: Code(s): R10.11 - Right upper quadrant pain Status: Acute Assessment and Plan: presented on 10/12/22 with multiple episodes of vomiting and inability to maintain PO intake * positive Gay sign * CT of the abdomen does suggest possible gallbladder involvement * HIDA scan revealed normal hepatobiliary scan. No evidence of cystic duct or common bile duct obstruction. Excludes acute cholecystitis. Minical ejection fraction findings suggest biliary dyskinesia/acalculous cholecystitis * Pain medications and anti-emetics ordered * LFTs not elevated * Continue to trend labs * GI consulted and appreciate recommendations. * Pt continued having N/V and was put NPO with NG tube placement per GI * Continue IV fluids 10/13/22 * Patient with possible acalculous cholecystitis with a white count of 14.2 * General surgery consulted and appreciate recommendations. * General surgery did not see need to undergo surgery at this time. * GI trying to rule out gastroparesis. * Gastric emptying scan ordered for tomorrow. (2) Intractable nausea and vomiting: Code(s): R11.2 - Nausea with vomiting, unspecified Status: Inactive Assessment and Plan: Patient presented with intractable N/V * GI consulted and appreciate recommendations. * Pt continued having N/V and was put NPO with NG tube placement per GI * Continue IV fluids * Protonix 40 mg IV started * Zofran Inj 10/13/22 * GI continuing to see pt. * N/V improved with NG tube * Per GI, Plan to clamp NG tube today * Gastric emptying scan ordered (3) Essential (primary) hypertension: Code(s): I10 - Essential (primary) hypertension Status: Acute Assessment and Plan: * Current BP is 140/78 * Hold lisinopril, resume when able to tolerate PO * Trend BP * Add hydralazine with parameters * Adjust therapy as indicated (4) Diabetes mellitus: Code(s): E11.9 - Type 2 diabetes mellitus without complications Status: Acute Assessment and Plan: * Current glucose 139 * Hold metformin, Jardiance, and Trulicity for now * Continue oral medications as appropriate * Accu-cheks ACHS * ISS * Trend glucose * Adjust therapy as indicated (5) Tachycardia: Code(s): R00.0 - Tachycardia, unspecified Status: Acute Assessment and Plan: * HR is in the 110s * Could be related to dehydrations * got one liter of NS in the ED * give 1L now * Continuous 80ml/hr iv fluids * Continue to trend heart rate Subjective Date/time seen: 10/13/22 09:47 Interval history: 47-year-old with a medical history of diabetes, hypertension and hyperlipidemia admitted for right upper quadrant pain and intractable nausea vomiting. GI consulted in seeing patient. NG tube placed and relief patient's nausea vomiting. Questionable acalculous cholecystitis and surgery consulted. Surgery did not think it necessary to undergo surgery at this time. Patient feeling better today and planned to have NG tube removed. Patient denies chest pain, shortness a breath, fever, abdominal pain or urinary symptoms. Patient states that her nausea vomiting have improved today. Review of Systems Review of Systems: All systems reviewed & are unremarkable except as noted in HPI and below
--- NOTE | 2022-10-13 09:47 | PM.IMPN ---
Progress Note: A&P Assessment and Plan (1) Right upper quadrant abdominal pain: Code(s): R10.11 - Right upper quadrant pain Status: Acute Assessment and Plan: presented on 10/12/22 with multiple episodes of vomiting and inability to maintain PO intake positive Gay sign CT of the abdomen does suggest possible gallbladder involvement HIDA scan revealed normal hepatobiliary scan. No evidence of cystic duct or common bile duct obstruction. Excludes acute cholecystitis. Minical ejection fraction findings suggest biliary dyskinesia/acalculous cholecystitis Pain medications and anti-emetics ordered LFTs not elevated Continue to trend labs GI consulted and appreciate recommendations. Pt continued having N/V and was put NPO with NG tube placement per GI Continue IV fluids 10/13/22 Patient with possible acalculous cholecystitis with a white count of 14.2 General surgery consulted and appreciate recommendations. General surgery did not see need to undergo surgery at this time. GI trying to rule out gastroparesis. Gastric emptying scan ordered for tomorrow. (2) Intractable nausea and vomiting: Code(s): R11.2 - Nausea with vomiting, unspecified Status: Inactive Assessment and Plan: Patient presented with intractable N/V GI consulted and appreciate recommendations. Pt continued having N/V and was put NPO with NG tube placement per GI Continue IV fluids Protonix 40 mg IV started Zofran Inj 10/13/22 GI continuing to see pt. N/V improved with NG tube Per GI, Plan to clamp NG tube today Gastric emptying scan ordered (3) Essential (primary) hypertension: Code(s): I10 - Essential (primary) hypertension Status: Acute Assessment and Plan: Current BP is 140/78 Hold lisinopril, resume when able to tolerate PO Trend BP Add hydralazine with parameters Adjust therapy as indicated (4) Diabetes mellitus: Code(s): E11.9 - Type 2 diabetes mellitus without complications Status: Acute Assessment and Plan: Current glucose 139 Hold metformin, Jardiance, and Trulicity for now Continue oral medications as appropriate Accu-cheks ACHS ISS Trend glucose Adjust therapy as indicated (5) Tachycardia: Code(s): R00.0 - Tachycardia, unspecified Status: Acute Assessment and Plan: HR is in the 110s Could be related to dehydrations got one liter of NS in the ED give 1L now Continuous 80ml/hr iv fluids Continue to trend heart rate Subjective Date/time seen: 10/13/22 09:47 Interval history: 47-year-old with a medical history of diabetes, hypertension and hyperlipidemia admitted for right upper quadrant pain and intractable nausea vomiting. GI consulted in seeing patient. NG tube placed and relief patient's nausea vomiting. Questionable acalculous cholecystitis and surgery consulted. Surgery did not think it necessary to undergo surgery at this time. Patient feeling better today and planned to have NG tube removed. Patient denies chest pain, shortness a breath, fever, abdominal pain or urinary symptoms. Patient states that her nausea vomiting have improved today. Review of Systems Review of Systems: All systems reviewed & are unremarkable except as noted in HPI and below Exam Narrative: GENERAL: Comfortable, no acute distress, HENMT: moist mucous membranes, alopecia, hirsutism of the chin and neck EYES: EOM intact b/l NECK: no lymphadenopathy RESPIRATORY: clear to auscultation CARDIO: RRR GI: soft, nontender, bowel sounds present SKIN: no rashes EXTREMITIES: no edema, redness or tenderness Objective Data Vital Signs Vital Signs: Vital Signs - 24 hr 10/12/22 14:00 10/12/22 20:00 10/12/22 22:00 Temperature 97.6 F 97.9 F Pulse Rate 100 102 H Respiratory Rate 15 18 Blood Pressure 109/61 118/67 Pulse Oximetry 100 99
[2022-10-13] MEDS: PIPERACILLIN/TAZOBACTAM SOD 4.5 GM in SODIUM CHLORIDE 0.9% IV 100 ML 200 ML IVPB (11:02)
--- NOTE | 2022-10-13 11:15 | PM.CNGS ---
Assessment and Plan Assessment and plan (1) Right upper quadrant abdominal pain: Code(s): R10.11 - Right upper quadrant pain Status: Acute Assessment and Plan: I reviewed the imaging and have discussed the findings with the patient. She has evidence of poor gallbladder function, but this would not typically cause an elevated white blood count and intractable nausea and vomiting. She also does not report any history of any food intolerances that would contribute to this. I got an ultrasound this morning which showed no evidence of gallbladder wall thickening or cholelithiasis. She probably needs further workup for her nausea and vomiting and surgery can be deferred until nausea and vomiting has resolved. Could consider repeat UA since culture showed evidence skin karl contaminant. Will await further workup by GI and follow along with patient. (2) Nausea & vomiting: Code(s): R11.2 - Nausea with vomiting, unspecified Status: Acute (3) Abnormal biliary HIDA scan: Code(s): R94.8 - Abnormal results of function studies of other organs and systems Status: Acute History of Present Illness Consult details Consult date: 10/13/22 Reason for consult: other (Intractable nausea and vomiting) Requesting physician: Cem Lebron MD Narrative: this is a 47-year-old woman who I am asked to see for possible gallbladder problems. She presented to the emergency department with intractable nausea and vomiting over the last 5 days. She states that this started as nausea and vomiting and does not recall any particular food that she ate that caused this. She denies any other ill contacts recently. Her abdominal pain started after a couple days of nausea and vomiting. She states that she has not been able to keep solid food down. She has never had any symptoms like this before. In the emergency department a CT of her abdomen and pelvis was performed which showed evidence of a dilated gallbladder without any gallbladder wall thickening or signs of cholecystitis. A HIDA scan was then also obtained which showed a 1% gallbladder ejection fraction. She continued to have persistent nausea and vomiting, therefore GI was consulted. An NG tube was placed last night. She denies fevers or chills. She is still having some right-sided abdominal pain. Review of Systems Review of Systems: All systems reviewed & are unremarkable except as noted in HPI and below Constitutional: Constitutional: Denies chills, Denies fever(s), Denies headache(s) and Denies weight loss Eyes: Eyes: Denies change in vision ENT: Denies dizziness, Denies headache(s), Denies neck mass and Denies throat swelling Cardiovascular: Cardiovascular: Denies chest pain, Denies lightheadedness and Denies dyspnea Respiratory: Respiratory: Denies cough, Denies dyspnea and Denies wheezing Gastrointestinal: Gastrointestinal: Reports as per HPI and Denies change in bowel habits Genitourinary: Genitourinary: Denies hematuria and Denies dysuria Integumentary/Breasts: Skin/Breast: Reports as per HPI Neurologic: Denies dizziness and Denies headache(s) Allergic/Immunologic: Allergic/Immunologic: Denies throat swelling and Denies wheezing [facility] [place] Past Medical History Medical History Adult BMI 32.0-32.9 kg/sq m Anemia Anxiety Callus of foot Diabetes mellitus Essential (primary) hypertension Hives Hyperlipidemia Hyponatremia Hypotension Neuropathy Open wound of plantar aspect of foot Type 2 diabetes mellitus without complications Vitamin D deficiency Weight loss Surgical History Surgical History No pertinent past surgical history Family History Family History Grandparent Cerebrovascular accident Family history of lung cancer Diabetes mellitus Social History Social Hist
[2022-10-13 13:38] LABS: Potassium 3.1 mmol/L (3.4-5.0)
[2022-10-13 14:00] VITALS: BP 115/60; PULSE 87; RESP 16; TEMP 36.4; O2SAT 98
[2022-10-13 15:36] LABS: Appearance Urine Cloudy (Clear); Bilirubin Urine 1+ (Negative); Blood Urine 1+ (Negative); Color Urine Yellow (Yellow); Glucose Urine UA 2+ mg/dL (Negative); Ketones Urine 4+ mg/dL (Negative); Leukocyte Esterase Ur Negative LEU/UL (Negative); Nitrate Urine Negative (Negative); Protein Urine 2+ mg/dL (Negative); Specific Grav Ur >= 1.030 (1.001-1.035); Urobilinogen Urine 0.2 mg/dL (<2.0); pH Urine 5.5 (5.0-9.0)
[2022-10-13 15:45] LABS: Bacteria Urine Trace /hpf; Budding Yeast Urine Present /hpf; Mucus Urine Rare /lpf; Squamous Epithelial Cell Urine Few /hpf (Few); WBC Urine 0-3 /hpf
[2022-10-13 15:48] LABS: Add Urine Microscopic? YES
[2022-10-13 21:13] VITALS: BP 117/58; PULSE 87; RESP 14; TEMP 36.4; O2SAT 99
[2022-10-14] MEDS: SODIUM CHLORIDE 0.9% IV 1,000 ML 125 ML IV CONT ×3 (02:20→21:09)
[2022-10-14] MEDS: HYDROcodone/acetaminophen (*CRX) 5-325 MG TABLET 1 TAB PO (02:21)
[2022-10-14 06:00] VITALS: BP 125/66; PULSE 79; RESP 14; TEMP 36.1; O2SAT 97
[2022-10-14 06:16] LABS: Hemoglobin 11.3 g/dL (12.0-15.0); Mean Corpuscular HGB Conc 32.3 g/dl (32-36); Mean Corpuscular Hemoglobin 26.8 pg (26-34); Mean Corpuscular Volume 82.9 fl (80-100); Mean Platelet Volume 9.2 fl (7.4-10.4); Platelet Count Result 277 k/mm3 (150-375); Red Blood Count 4.22 M/mm3 (4.2-5.4); Red Cell Distribution Width 15.9 % (11.5-14.5); White Blood Count 8.3 K/mm3 (4.5-10.0)
[2022-10-14 06:52] LABS: Alanine Aminotransferase 10 U/L (6-35); Albumin Level 3.5 g/dL (3.5-5.1); Alkaline Phosphatase 53 U/L (38-126); Anion Gap 13 mmol/L (8-16); Aspartate Amino Transferase 18 U/L (14-36); Bilirubin,Total 0.2 mg/dL (0.2-1.3); Blood Urea Nitrogen 6 mg/dL (7-17); Calcium 7.7 mg/dL (8.4-10.2); Carbon Dioxide 14 mmol/L (22-30); Chloride 111 mmol/L (98-107); Estimated CRCL calculation 86 ml/min; Estimated Glomerular Filt Rate > 60; Glucose 71 mg/dL (65-110); Potassium 2.8 mmol/L (3.4-5.0); Sodium 138 mmol/L (137-145)
[2022-10-14] MEDS: POTASSIUM CHLORIDE 20 MEQ PACKET (FOR LIQUID) 60 MEQ PO (08:28)
[2022-10-14] MEDS: PANTOPRAZOLE SODIUM IV 40 MG VIAL IV PUSH ×2 (08:29→21:09)
--- NOTE | 2022-10-14 09:14 | P.PNIM_ITS ---
Progress Note: A&P Assessment and Plan (1) Right upper quadrant abdominal pain: Code(s): R10.11 - Right upper quadrant pain Status: Acute Assessment and Plan: presented on 10/12/22 with multiple episodes of vomiting and inability to maintain PO intake * positive Gay sign * CT of the abdomen does suggest possible gallbladder involvement * HIDA scan revealed normal hepatobiliary scan. No evidence of cystic duct or common bile duct obstruction. Excludes acute cholecystitis. Minical ejection fraction findings suggest biliary dyskinesia/acalculous cholecystitis * Pain medications and anti-emetics ordered * LFTs not elevated * Continue to trend labs * GI consulted and appreciate recommendations. * Pt continued having N/V and was put NPO with NG tube placement per GI * Continue IV fluids 10/13/22 * Patient with possible acalculous cholecystitis with a white count of 14.2 * General surgery consulted and appreciate recommendations. * General surgery did not see need to undergo surgery at this time. * GI trying to rule out gastroparesis. * Gastric emptying scan ordered for tomorrow. 10/14/22 * Gastric emptying scan revealed delayed gastric emptying. * GI suspects diabetic gastroparesis. (2) Intractable nausea and vomiting: Code(s): R11.2 - Nausea with vomiting, unspecified Status: Inactive Assessment and Plan: Patient presented with intractable N/V * GI consulted and appreciate recommendations. * Pt continued having N/V and was put NPO with NG tube placement per GI * Continue IV fluids * Protonix 40 mg IV started * Zofran Inj 10/13/22 * GI continuing to see pt. * N/V improved with NG tube * Per GI, Plan to clamp NG tube today * Gastric emptying scan ordered 10/14/22 * Patient continued to have nausea with food ingestion. * Patient has not experienced vomiting today. (3) Essential (primary) hypertension: Code(s): I10 - Essential (primary) hypertension Status: Acute Assessment and Plan: * Current BP is 140/78 * Hold lisinopril, resume when able to tolerate PO * Trend BP * Add hydralazine with parameters * Adjust therapy as indicated (4) Diabetes mellitus: Code(s): E11.9 - Type 2 diabetes mellitus without complications Status: Acute Assessment and Plan: * Current glucose 139 * Hold metformin, Jardiance, and Trulicity for now * Continue oral medications as appropriate * Accu-cheks ACHS * ISS * Trend glucose * Adjust therapy as indicated (5) Tachycardia: Code(s): R00.0 - Tachycardia, unspecified Status: Acute Assessment and Plan: * HR is in the 110s * Could be related to dehydrations * got one liter of NS in the ED * give 1L now * Continuous 80ml/hr iv fluids * Continue to trend heart rate (6) Hypokalemia: Code(s): E87.6 - Hypokalemia Status: Acute Assessment and Plan: Patient having hypokalemia during her stay, this could be due to her fluids. * Replenish potassium as necessary. * Check magnesium in the a.m. Plan Greater than 60 minutes Subjective Date/time seen: 10/14/22 09:14 Interval history: Patient lying in bed resting during interview. Patient no longer has NG tube placed. Patient still having mid abdominal cramping. Patient undergoing gastric emptyin
--- NOTE | 2022-10-14 09:14 | PM.IMPN ---
Progress Note: A&P Assessment and Plan (1) Right upper quadrant abdominal pain: Code(s): R10.11 - Right upper quadrant pain Status: Acute Assessment and Plan: presented on 10/12/22 with multiple episodes of vomiting and inability to maintain PO intake positive Gay sign CT of the abdomen does suggest possible gallbladder involvement HIDA scan revealed normal hepatobiliary scan. No evidence of cystic duct or common bile duct obstruction. Excludes acute cholecystitis. Minical ejection fraction findings suggest biliary dyskinesia/acalculous cholecystitis Pain medications and anti-emetics ordered LFTs not elevated Continue to trend labs GI consulted and appreciate recommendations. Pt continued having N/V and was put NPO with NG tube placement per GI Continue IV fluids 10/13/22 Patient with possible acalculous cholecystitis with a white count of 14.2 General surgery consulted and appreciate recommendations. General surgery did not see need to undergo surgery at this time. GI trying to rule out gastroparesis. Gastric emptying scan ordered for tomorrow. 10/14/22 Gastric emptying scan revealed delayed gastric emptying. GI suspects diabetic gastroparesis. (2) Intractable nausea and vomiting: Code(s): R11.2 - Nausea with vomiting, unspecified Status: Inactive Assessment and Plan: Patient presented with intractable N/V GI consulted and appreciate recommendations. Pt continued having N/V and was put NPO with NG tube placement per GI Continue IV fluids Protonix 40 mg IV started Zofran Inj 10/13/22 GI continuing to see pt. N/V improved with NG tube Per GI, Plan to clamp NG tube today Gastric emptying scan ordered 10/14/22 Patient continued to have nausea with food ingestion. Patient has not experienced vomiting today. (3) Essential (primary) hypertension: Code(s): I10 - Essential (primary) hypertension Status: Acute Assessment and Plan: Current BP is 140/78 Hold lisinopril, resume when able to tolerate PO Trend BP Add hydralazine with parameters Adjust therapy as indicated (4) Diabetes mellitus: Code(s): E11.9 - Type 2 diabetes mellitus without complications Status: Acute Assessment and Plan: Current glucose 139 Hold metformin, Jardiance, and Trulicity for now Continue oral medications as appropriate Accu-cheks ACHS ISS Trend glucose Adjust therapy as indicated (5) Tachycardia: Code(s): R00.0 - Tachycardia, unspecified Status: Acute Assessment and Plan: HR is in the 110s Could be related to dehydrations got one liter of NS in the ED give 1L now Continuous 80ml/hr iv fluids Continue to trend heart rate (6) Hypokalemia: Code(s): E87.6 - Hypokalemia Status: Acute Assessment and Plan: Patient having hypokalemia during her stay, this could be due to her fluids. Replenish potassium as necessary. Check magnesium in the a.m. Plan Greater than 60 minutes Subjective Date/time seen: 10/14/22 09:14 Interval history: Patient lying in bed resting during interview. Patient no longer has NG tube placed. Patient still having mid abdominal cramping. Patient undergoing gastric emptying scan today. Patient states that she did have nausea with initiation of gastric emptying scan due to intake of food. Scan revealed delayed gastric emptying. Patient being followed by GI. Patient denies fever, dizziness, headache, chest pain, shortness a breath, urinary symptoms such as burning and frequency. Review of Systems Review of Systems: All systems reviewed & are unremarkable except as noted in HPI and below Exam Narrative: GENERAL: Comfortable, no acute distress, HENMT: moist mucous membranes, alopecia, hirsutism of the chin and neck EYES: EOM intact b/l NECK: no lymphadenopathy RESPIRA
--- NOTE | 2022-10-14 11:32 | WPDGIPROGNO ---
Progress Note: A&P Assessment and Plan (1) Nausea & vomiting: Code(s): R11.2 - Nausea with vomiting, unspecified Status: Acute Assessment and Plan: Nausea vomiting and abdominal pain have improved after NG tube decompression. Plan to obtain gastric emptying scan today. Advance diet as tolerated. May consider an EGD tomorrow depending on results. Suspect she may have diabetic gastroparesis. (2) Diabetes mellitus: Code(s): E11.9 - Type 2 diabetes mellitus without complications Status: Acute (3) Abnormal biliary HIDA scan: Code(s): R94.8 - Abnormal results of function studies of other organs and systems Status: Acute Assessment and Plan: Abnormal HIDA scan but no gallstones noted. Symptoms have improved. Agree with observation for now. Advance diet as tolerated. Subjective Date/time seen: 10/14/22 11:32 Interval history: Patient alert this morning. No more vomiting. Tolerated NG tube clamping. Gastric emptying scan pending. Patient hungry. Review of Systems Review of Systems: Review of systems noncontributory. Exam Narrative: Physical exam abdomen is soft flat nontender. Lungs are clear. Heart without murmur. Objective Data Vital Signs Vital Signs: Vital Signs - 24 hr 10/13/22 14:00 10/13/22 20:00 10/13/22 21:13 Temperature 97.6 F 97.6 F Pulse Rate 87 87 Respiratory Rate 16 14 Blood Pressure 115/60 117/58 L Pulse Oximetry 98 99 Oxygen Delivery Room Air 10/14/22 06:00 10/14/22 08:00 Temperature 97.0 F L Pulse Rate 79 Respiratory Rate 14 Blood Pressure 125/66 Pulse Oximetry 97 Oxygen Delivery Room Air Intake/Output Intake/Output: Intake & Output 10/11/22 10/12/22 10/13/22 10/14/22 23:59 23:59 23:59 23:59 Intake Total 1000 3291 4000 Output Total 1050 1200 Balance 1000 3291 2950 -1200 Meds/Results Medications: Active Medications Generic Name Dose Route Start Last Admin Trade Name Freq PRN Reason Stop Dose Admin Acetaminophen 650 mg 10/12/22 08:04 Acetaminophen 325 Mg Tablet PO Q4H PRN Mild Pain (1-3) or Fever Hydrocodone Bitart/Acetaminophen 1 tab 10/12/22 08:04 10/14/22 02:21 Hydrocodone/Acetaminophen (*Crx) 5-325 Mg Tablet PO 1 tab Q4H PRN Administration Moderate Pain (4-6) Albuterol 1 puff 10/12/22 08:08 Albuterol Sulfate (*Sp) Aerosol 1 Puff INHALATION Q4H PRN shortness of breath or wheezing Hydralazine HCl 10 mg 10/12/22 08:04 Hydralazine Hcl 20 Mg/Ml Vial IV PUSH Q8H PRN Blood Pressure - High Sodium Chloride 1,000 mls @ 125 mls/hr 10/12/22 01:00 10/14/22 02:20 Normal Saline Iv IV CONT 125 mls/hr .Q8H NADJA Administration Morphine Sulfate 2 mg 10/12/22 08:04 10/12/22 20:21 Morphine Sulfate (*Crx) 2 Mg/Ml Inj IV PUSH 2 mg Q4H PRN Administration Pain Rated 7-10 Ondansetron HCl 4 mg 10/12/22 00:56 10/12/22 06:58 Ondansetron Inj 4 Mg/2 Ml Vial IV PUSH 4 mg Q4H PRN Administration Nausea Pantoprazole Sodium 40 mg 10/12/22 09:00 10/14/22 08:29 Pantoprazole Sodium Iv 40 Mg Vial IV PUSH 40 mg Q12HR NADJA Administration Radiology Results: ITS Impressions Hepatobiliary Scan Nuclear Medicine 10/12/22 13:03 Impression: Normal hepatobiliary scan. No evidence of cystic duct or common bile duct obstruction. This effectively excludes acute cholecystitis. Markedly decreased gallbladder ejection fraction. Findings suggest biliary dyskinesia. Kelly et al.,Sincalide-Stimulated Cholescintigraphy: A Multicenter Investigation to Determine Optimal Infusion Methodology and Gallbladder Ejection Fraction Normal Values. JNM. Vol 51. No.2. Oct 2009. . ADDENDUM: 10/13/22 1512 Correction to technique: Cholecystokinin was not used. 60 minutes after radiotracer injection, the patient drank 8 ounces Ensure, and imaging was continued for 60 minutes. Abdomen X-Ray 10/12/22 18
--- NOTE | 2022-10-14 11:58 | PM.PNGS ---
Progress Note: A&P Assessment and Plan (1) Abnormal biliary HIDA scan: Code(s): R94.8 - Abnormal results of function studies of other organs and systems Status: Acute Assessment and Plan: Patient improving with Zosyn started yesterday, she was already feeling somewhat better with NG placement the day before. WBC has now normalized, wondering if she had some infectious source contributing to her symptoms. Continue current treatment/workup per GI. Will defer surgery at this time. Patient can follow up as an outpatient if she notices recurrent RUQ/epigastric pain after eating. (2) Nausea & vomiting: Code(s): R11.2 - Nausea with vomiting, unspecified Status: Acute (3) Diabetes mellitus: Code(s): E11.9 - Type 2 diabetes mellitus without complications Status: Acute Subjective Subjective Date/Time Seen: 10/14/22 11:58 Interval history: Nausea/vomiting resolved. Has a little lower abdominal pain, but no upper abdominal pain. Exam GI: Inspection: non-distended GI Palp: Yes Soft to palpation, No Tenderness to palpation present (GI), No Guarding due to palpation present (GI) and No Rebound tenderness present Percussion: Yes normal to percussion Auscultation: normal bowel sounds Objective Data Vital Signs Vital Signs: Vital Signs - 24 hr 10/13/22 14:00 10/13/22 20:00 10/13/22 21:13 Temperature 36.4 C 36.4 C Pulse Rate 87 87 Respiratory Rate 16 14 Blood Pressure 115/60 117/58 L Pulse Oximetry 98 99 Oxygen Delivery Room Air 10/14/22 06:00 10/14/22 08:00 Temperature 36.1 C L Pulse Rate 79 Respiratory Rate 14 Blood Pressure 125/66 Pulse Oximetry 97 Oxygen Delivery Room Air Intake/Output Intake/Output: Intake & Output 10/11/22 10/12/22 10/13/22 10/14/22 23:59 23:59 23:59 23:59 Intake Total 1000 3291 4000 Output Total 1050 1200 Balance 1000 3291 2950 -1200 Meds/Results Medications: Active Medications Generic Name Dose Route Start Last Admin Trade Name Freq PRN Reason Stop Dose Admin Acetaminophen 650 mg 10/12/22 08:04 Acetaminophen 325 Mg Tablet PO Q4H PRN Mild Pain (1-3) or Fever Hydrocodone Bitart/Acetaminophen 1 tab 10/12/22 08:04 10/14/22 02:21 Hydrocodone/Acetaminophen (*Crx) 5-325 Mg Tablet PO 1 tab Q4H PRN Administration Moderate Pain (4-6) Albuterol 1 puff 10/12/22 08:08 Albuterol Sulfate (*Sp) Aerosol 1 Puff INHALATION Q4H PRN shortness of breath or wheezing Hydralazine HCl 10 mg 10/12/22 08:04 Hydralazine Hcl 20 Mg/Ml Vial IV PUSH Q8H PRN Blood Pressure - High Sodium Chloride 1,000 mls @ 125 mls/hr 10/12/22 01:00 10/14/22 02:20 Normal Saline Iv IV CONT 125 mls/hr .Q8H NADJA Administration Morphine Sulfate 2 mg 10/12/22 08:04 10/12/22 20:21 Morphine Sulfate (*Crx) 2 Mg/Ml Inj IV PUSH 2 mg Q4H PRN Administration Pain Rated 7-10 Ondansetron HCl 4 mg 10/12/22 00:56 10/12/22 06:58 Ondansetron Inj 4 Mg/2 Ml Vial IV PUSH 4 mg Q4H PRN Administration Nausea Pantoprazole Sodium 40 mg 10/12/22 09:00 10/14/22 08:29 Pantoprazole Sodium Iv 40 Mg Vial IV PUSH 40 mg Q12HR NADJA Administration Radiology Results: ITS Impressions Hepatobiliary Scan Nuclear Medicine 10/12/22 13:03 Impression: Normal hepatobiliary scan. No evidence of cystic duct or common bile duct obstruction. This effectively excludes acute cholecystitis. Markedly decreased gallbladder ejection fraction. Findings suggest biliary dyskinesia. Kelly et al.,Sincalide-Stimulated Cholescintigraphy: A Multicenter Investigation to Determine Optimal Infusion Methodology and Gallbladder Ejection Fraction Normal Values. JNM. Vol 51. No.2. Oct 2009. . ADDENDUM: 10/13/22 1512 Correction to technique: Cholecystokinin was not used. 60 minutes after radiotracer injection, the patient drank 8 ounces Ensure, and imaging was continued for 60 minut
[2022-10-14 14:00] VITALS: BP 110/55; PULSE 81; RESP 16; TEMP 36.3; O2SAT 100
[2022-10-14 14:50] LABS: Potassium 3.3 mmol/L (3.4-5.0)
[2022-10-14] MEDS: POTASSIUM CHLORIDE 20 MEQ PACKET (FOR LIQUID) PO (16:58)
[2022-10-14 17:43] LABS: Potassium 3.1 mmol/L (3.4-5.0)
[2022-10-14 21:45] VITALS: BP 138/66; PULSE 79; RESP 14; TEMP 36.1; O2SAT 100
[2022-10-15] VITALS (7 sets, daily range): BP systolic 104–145; BP diastolic 61–79; PULSE 69–80; RESP 14–21; TEMP 36.1–36.4; O2SAT 96–100; BMI 29.7
[2022-10-15] MEDS: MORPHINE SULFATE (*CRX) 2 MG/ML INJ IV PUSH (04:03)
[2022-10-15] MEDS: SODIUM CHLORIDE 0.9% IV 1,000 ML 125 ML IV CONT ×3 (06:34→23:51)
[2022-10-15 07:26] LABS: Hematocrit 34.3 % (37.0-47.0); Hemoglobin 11.2 g/dL (12.0-15.0); Mean Corpuscular HGB Conc 32.7 g/dl (32-36); Mean Corpuscular Volume 82.7 fl (80-100); Mean Platelet Volume 9.1 fl (7.4-10.4); Platelet Count Result 250 k/mm3 (150-375); Red Blood Count 4.15 M/mm3 (4.2-5.4); Red Cell Distribution Width 15.8 % (11.5-14.5); White Blood Count 6.6 K/mm3 (4.5-10.0)
[2022-10-15 07:50] LABS: Alanine Aminotransferase 12 U/L (6-35); Albumin Level 3.1 g/dL (3.5-5.1); Alkaline Phosphatase 46 U/L (38-126); Anion Gap 8 mmol/L (8-16); Aspartate Amino Transferase 19 U/L (14-36); Bilirubin,Total 0.4 mg/dL (0.2-1.3); Blood Urea Nitrogen 4 mg/dL (7-17); Calcium 7.6 mg/dL (8.4-10.2); Carbon Dioxide 21 mmol/L (22-30); Chloride 110 mmol/L (98-107); Estimated CRCL calculation 99 ml/min; Estimated Glomerular Filt Rate > 60; Glucose 87 mg/dL (65-110); Magnesium 1.9 mg/dL (1.6-2.3); Potassium 2.6 mmol/L (3.4-5.0); Sodium 139 mmol/L (137-145)
[2022-10-15] MEDS: PANTOPRAZOLE SODIUM IV 40 MG VIAL IV PUSH ×2 (08:08→20:49)
[2022-10-15] MEDS: POTASSIUM CHLORIDE 20 MEQ PACKET (FOR LIQUID) PO (08:08)
[2022-10-15] MEDS: POTASSIUM CHLORIDE INJ 40 MEQ in SODIUM CHLORIDE 0.9% IV 500 ML 130 MEQ IVPB (09:03)
--- NOTE | 2022-10-15 09:20 | PM.PNGS ---
Progress Note: A&P Assessment and Plan (1) Nausea & vomiting: Code(s): R11.2 - Nausea with vomiting, unspecified Status: Acute Assessment and Plan: No real signs that this is currently related to her gallbladder. Dr. Lebron planning EGD today. Await further results. Will stimulate bowels today. OK to discharge from surgical standpoint. Patient can follow up as needed if she notices upper abdominal pains or other symptoms after eating high fat meals. (2) Abnormal biliary HIDA scan: Code(s): R94.8 - Abnormal results of function studies of other organs and systems Status: Acute (3) Hypokalemia: Code(s): E87.6 - Hypokalemia Status: Acute (4) Constipation: Code(s): K59.00 - Constipation, unspecified Status: Acute Subjective Subjective Date/Time Seen: 10/15/22 09:20 Interval history: Was having some lower abdominal pain last night. Minimal nausea but no vomiting. Denies upper abdominal or RUQ pain. Hasn't had a BM for a week. Exam GI: Inspection: non-distended GI Palp: Yes Soft to palpation, No Tenderness to palpation present (GI) and No Guarding due to palpation present (GI) Objective Data Vital Signs Vital Signs: Vital Signs - 24 hr 10/14/22 14:00 10/14/22 21:45 10/14/22 20:00 Temperature 36.3 C L 36.1 C L Pulse Rate 81 79 Respiratory Rate 16 14 Blood Pressure 110/55 L 138/66 Pulse Oximetry 100 100 Oxygen Delivery Room Air 10/15/22 05:41 Temperature 36.1 C L Pulse Rate 75 Respiratory Rate 14 Blood Pressure 138/70 Pulse Oximetry 99 Oxygen Delivery Intake/Output Intake/Output: Intake & Output 10/12/22 10/13/22 10/14/22 10/15/22 23:59 23:59 23:59 23:59 Intake Total 3291 4000 2600 2500 Output Total 1050 2200 1700 Balance 3291 2950 400 800 Meds/Results Medications: Active Medications Generic Name Dose Route Start Last Admin Trade Name Freq PRN Reason Stop Dose Admin Acetaminophen 650 mg 10/12/22 08:04 Acetaminophen 325 Mg Tablet PO Q4H PRN Mild Pain (1-3) or Fever Hydrocodone Bitart/Acetaminophen 1 tab 10/12/22 08:04 10/14/22 02:21 Hydrocodone/Acetaminophen (*Crx) 5-325 Mg Tablet PO 1 tab Q4H PRN Administration Moderate Pain (4-6) Albuterol 1 puff 10/12/22 08:08 Albuterol Sulfate (*Sp) Aerosol 1 Puff INHALATION Q4H PRN shortness of breath or wheezing Bisacodyl 10 mg 10/15/22 09:19 Bisacodyl 10 Mg Suppository RECTAL 10/15/22 09:20 ONCE ONE Hydralazine HCl 10 mg 10/12/22 08:04 Hydralazine Hcl 20 Mg/Ml Vial IV PUSH Q8H PRN Blood Pressure - High Sodium Chloride 1,000 mls @ 125 mls/hr 10/12/22 01:00 10/15/22 08:08 Normal Saline Iv IV CONT 125 mls/hr .Q8H NADJA Administration Potassium Chloride 40 meq/ 520 mls @ 130 mls/hr 10/15/22 07:54 10/15/22 09:03 Sodium Chloride IVPB 10/15/22 11:53 130 mls/hr ONCE ONE Administration Morphine Sulfate 2 mg 10/12/22 08:04 10/15/22 04:03 Morphine Sulfate (*Crx) 2 Mg/Ml Inj IV PUSH 2 mg Q4H PRN Administration Pain Rated 7-10 Ondansetron HCl 4 mg 10/12/22 00:56 10/12/22 06:58 Ondansetron Inj 4 Mg/2 Ml Vial IV PUSH 4 mg Q4H PRN Administration Nausea Pantoprazole Sodium 40 mg 10/12/22 09:00 10/15/22 08:08 Pantoprazole Sodium Iv 40 Mg Vial IV PUSH 40 mg Q12HR NADJA Administration Polyethylene Glycol 17 gm 10/16/22 09:00 Polyethylene Glycol 3350 17 Gm Powd.Pack PO QAM [facility] Radiology Results: ITS Impressions Hepatobiliary Scan Nuclear Medicine 10/12/22 13:03 Impression: Normal hepatobiliary scan. No evidence of cystic duct or common bile duct obstruction. This effectively excludes acute cholecystitis. Markedly decreased gallbladder ejection fraction. Findings suggest biliary dyskinesia. Kelly et al.,Sincalide-Stimulated Cholescintigraphy: A Multicenter Investigation to Determine Optimal Infusion Methodology and Gal
--- NOTE | 2022-10-15 09:40 | P.PNIM_ITS ---
Progress Note: A&P Assessment and Plan (1) Right upper quadrant abdominal pain: Code(s): R10.11 - Right upper quadrant pain Status: Acute Assessment and Plan: presented on 10/12/22 with multiple episodes of vomiting and inability to maintain PO intake * positive Gay sign * CT of the abdomen does suggest possible gallbladder involvement * HIDA scan revealed normal hepatobiliary scan. No evidence of cystic duct or common bile duct obstruction. Excludes acute cholecystitis. Minical ejection fraction findings suggest biliary dyskinesia/acalculous cholecystitis * Pain medications and anti-emetics ordered * LFTs not elevated * Continue to trend labs * GI consulted and appreciate recommendations. * Pt continued having N/V and was put NPO with NG tube placement per GI * Continue IV fluids 10/13/22 * Patient with possible acalculous cholecystitis with a white count of 14.2 * General surgery consulted and appreciate recommendations. * General surgery did not see need to undergo surgery at this time. * GI trying to rule out gastroparesis. * Gastric emptying scan ordered for tomorrow. 10/14/22 * Gastric emptying scan revealed delayed gastric emptying. * GI suspects diabetic gastroparesis. 10/15/22 * GI doing EGD today (2) Intractable nausea and vomiting: Code(s): R11.2 - Nausea with vomiting, unspecified Status: Inactive Assessment and Plan: Patient presented with intractable N/V * GI consulted and appreciate recommendations. * Pt continued having N/V and was put NPO with NG tube placement per GI * Continue IV fluids * Protonix 40 mg IV started * Zofran Inj 10/13/22 * GI continuing to see pt. * N/V improved with NG tube * Per GI, Plan to clamp NG tube today * Gastric emptying scan ordered 10/14/22 * Patient continued to have nausea with food ingestion. * Patient has not experienced vomiting today. 10/15/22 * Patient NPO today and not having symptoms * Did have nausea last night with dinner (3) Essential (primary) hypertension: Code(s): I10 - Essential (primary) hypertension Status: Chronic Assessment and Plan: * Current BP is 140/78 * Hold lisinopril, resume when able to tolerate PO * Trend BP * Add hydralazine with parameters * Adjust therapy as indicated Stable (4) Diabetes mellitus: Code(s): E11.9 - Type 2 diabetes mellitus without complications Status: Chronic Assessment and Plan: * Current glucose 139 * Hold metformin, Jardiance, and Trulicity for now * Continue oral medications as appropriate * Accu-cheks ACHS * ISS * Trend glucose * Adjust therapy as indicated Stable (5) Tachycardia: Code(s): R00.0 - Tachycardia, unspecified Status: Acute Assessment and Plan: * Tachycardia resolved with fluids * Stable (6) Hypokalemia: Code(s): E87.6 - Hypokalemia Status: Acute Assessment and Plan: Patient having hypokalemia during her stay, this could be due to her fluids. * Replenish potassium as necessary. * Magnesium normal Plan Greater than 35 minutes during this encounter Subjective Date/time seen: 10/15/22 09:40 Interval history: Patient resting in bed during interview. Patient has no new symptoms. Still continuing to have nausea with ingestion. Patient undergoing
--- NOTE | 2022-10-15 09:40 | PM.IMPN ---
Progress Note: A&P Assessment and Plan (1) Right upper quadrant abdominal pain: Code(s): R10.11 - Right upper quadrant pain Status: Acute Assessment and Plan: presented on 10/12/22 with multiple episodes of vomiting and inability to maintain PO intake positive Gay sign CT of the abdomen does suggest possible gallbladder involvement HIDA scan revealed normal hepatobiliary scan. No evidence of cystic duct or common bile duct obstruction. Excludes acute cholecystitis. Minical ejection fraction findings suggest biliary dyskinesia/acalculous cholecystitis Pain medications and anti-emetics ordered LFTs not elevated Continue to trend labs GI consulted and appreciate recommendations. Pt continued having N/V and was put NPO with NG tube placement per GI Continue IV fluids 10/13/22 Patient with possible acalculous cholecystitis with a white count of 14.2 General surgery consulted and appreciate recommendations. General surgery did not see need to undergo surgery at this time. GI trying to rule out gastroparesis. Gastric emptying scan ordered for tomorrow. 10/14/22 Gastric emptying scan revealed delayed gastric emptying. GI suspects diabetic gastroparesis. 10/15/22 GI doing EGD today (2) Intractable nausea and vomiting: Code(s): R11.2 - Nausea with vomiting, unspecified Status: Inactive Assessment and Plan: Patient presented with intractable N/V GI consulted and appreciate recommendations. Pt continued having N/V and was put NPO with NG tube placement per GI Continue IV fluids Protonix 40 mg IV started Zofran Inj 10/13/22 GI continuing to see pt. N/V improved with NG tube Per GI, Plan to clamp NG tube today Gastric emptying scan ordered 10/14/22 Patient continued to have nausea with food ingestion. Patient has not experienced vomiting today. 10/15/22 Patient NPO today and not having symptoms Did have nausea last night with dinner (3) Essential (primary) hypertension: Code(s): I10 - Essential (primary) hypertension Status: Chronic Assessment and Plan: Current BP is 140/78 Hold lisinopril, resume when able to tolerate PO Trend BP Add hydralazine with parameters Adjust therapy as indicated Stable (4) Diabetes mellitus: Code(s): E11.9 - Type 2 diabetes mellitus without complications Status: Chronic Assessment and Plan: Current glucose 139 Hold metformin, Jardiance, and Trulicity for now Continue oral medications as appropriate Accu-cheks ACHS ISS Trend glucose Adjust therapy as indicated Stable (5) Tachycardia: Code(s): R00.0 - Tachycardia, unspecified Status: Acute Assessment and Plan: Tachycardia resolved with fluids Stable (6) Hypokalemia: Code(s): E87.6 - Hypokalemia Status: Acute Assessment and Plan: Patient having hypokalemia during her stay, this could be due to her fluids. Replenish potassium as necessary. Magnesium normal Plan Greater than 35 minutes during this encounter Subjective Date/time seen: 10/15/22 09:40 Interval history: Patient resting in bed during interview. Patient has no new symptoms. Still continuing to have nausea with ingestion. Patient undergoing EGD today and GI following. Patient denies fever, dizziness, headache, chest pain, shortness a breath, vomiting and diarrhea. Review of Systems Review of Systems: All systems reviewed & are unremarkable except as noted in HPI and below Exam Narrative: GENERAL: Comfortable, no acute distress, HENMT: moist mucous membranes, alopecia, hirsutism of the chin and neck EYES: EOM intact b/l NECK: no lymphadenopathy RESPIRATORY: clear to auscultation CARDIO: RRR GI: soft, tender to palpation in the middle of abdomen, bowel sounds present SKIN: no rashes EXTREMITIES: no edema, redness or tenderness O
[2022-10-15 12:25] LABS: Potassium 3.4 mmol/L (3.4-5.0)
[2022-10-15] MEDS: LACTATED RINGERS 1,000 ML 150 ML IV CONT (12:28)
[2022-10-15] MEDS: ONDANSETRON INJ 4 MG/2 ML VIAL IV PUSH (12:28)
--- NOTE | 2022-10-15 12:40 | WPDANESEPPF ---
Anes - Initial Pre Proc Eval Procedure: Operation Date: 10/14/22 13:00 Proposed Procedures p Esophagogastroduodenoscopy - Cem Lebron MD Operation Date: 10/15/22 13:00 Proposed Procedures p Esophagogastroduodenoscopy - Cem Lebron MD Date/Time: 10/15/22 12:40 Surgeon: Isiah Oliver MD Pre Op Diagnosis: RUQ abdominal pain, persistent vomiting Patient Data Age: 47 Gender: F Height: 1.63 m Weight: 78.6 kg Last Vital Signs Temp 97.6 F 10/15/22 12:37 Pulse 80 10/15/22 12:37 Resp 20 10/15/22 12:37 BP 131/70 10/15/22 12:37 Pulse Ox 100 10/15/22 12:37 O2 Del Method Room Air 10/15/22 12:37 Allergies Allergy/AdvReac Type Severity Reaction Status Date / Time citalopram Allergy Unknown Unknown Verified 10/11/22 20:54 codeine Allergy Unknown Unknown Verified 10/11/22 20:54 Home Medications Medication Instructions Recorded Confirmed Type blood-glucose meter (OneTouch #1 ea 01/28/22 10/12/22 Rx Ultra2 Meter kit) albuterol sulfate 90 mcg/actuation 1 inh inhalation Q4H PRN shortness 04/05/22 10/12/22 Rx aerosol inhaler (ProAir HFA) of breath or wheezing #8.5 grams rosuvastatin 40 mg tablet 40 mg PO DAILY #60 tabs 04/27/22 10/12/22 Rx sertraline 100 mg tablet (Zoloft) 200 mg PO DAILY #60 tabs 05/18/22 10/12/22 Rx empagliflozin 25 mg tablet 25 mg PO DAILY #90 tabs 08/27/22 10/12/22 Rx (Jardiance) dulaglutide 3 mg/0.5 mL 3 mg (0.5 mL) subcut WEEKLY #2 mL 09/20/22 10/12/22 Rx subcutaneous pen injector (Trulicity) lisinopril 2.5 mg tablet 2.5 mg PO DAILY #30 tabs 09/28/22 10/12/22 Rx alprazolam 0.5 mg tablet 0.5 mg PO QID PRN anxiety #60 tabs 10/05/22 10/12/22 Rx famotidine 20 mg tablet 20 mg PO DAILY #90 tabs 10/10/22 10/12/22 Rx gabapentin 300 mg capsule 300 mg PO TID 10/12/22 10/12/22 History metformin 500 mg tablet,extended 2,000 mg PO DAILY 10/12/22 10/12/22 History release 24 hr Laboratory Tests 10/14/22 10/14/22 10/15/22 14:18 17:11 06:52 WBC 6.6 K/mm3 K/mm3 (4.5-10.0) RBC 4.15 M/mm3 L M/mm3 (4.2-5.4) Hgb 11.2 g/dL L g/dL (12.0-15.0) Hct 34.3 % L % (37.0-47.0) MCV 82.7 fl fl (80-100) MCH 27.0 pg pg (26-34) MCHC 32.7 g/dl g/dl (32-36) RDW 15.8 % H % (11.5-14.5) Plt Count 250 k/mm3 k/mm3 (150-375) MPV 9.1 fl fl (7.4-10.4) Sodium Potassium 3.3 mmol/L L mmol/L 3.1 mmol/L L mmol/L (3.4-5.0) (3.4-5.0) Chloride Carbon Dioxide Anion Gap BUN Creatinine Estim Creat Clear Calc Estimated GFR Glucose Calcium Magnesium Total Bilirubin AST ALT Alkaline Phosphatase Total Protein Albumin 10/15/22 10/15/22 06:52 11:53 WBC RBC Hgb Hct MCV MCH MCHC RDW Plt Count MPV Sodium 139 mmol/L mmol/L (137-145) Potassium 2.6 mmol/L L* mmol/L 3.4 mmol/L mmol/L (3.4-5.0) (3.4-5.0) Chloride 110 mmol/L H mmol/L (98-107) Carbon Dioxide 21 mmol/L L mmol/L (22-30) Anion Gap 8 mmol/L mmol/L (8-16) BUN 4 mg/dL L mg/dL (7-17) Creatinine 0.60 mg/dL L mg/dL (0.7-1.0) Estim Creat Clear Calc 99 ml/min ml/min Estimated GFR > 60 (59 - ) Glucose 87 mg/dL mg/dL (65-110) Calcium 7.6 mg/dL L mg/dL (8.4-10.2) Magnesium 1.9 mg/dL mg/dL (1.6-2.3) Total Bilirubin 0.4 mg/dL mg/dL (0.2-1.3) AST 19 U/L U/L (14-36) ALT 12 U/L U/L (6-35) Alkaline Phosphatase 46 U/L U/L (38-126) Total Protein 6.0 g/dL L g/dL (6.3-8.2) Albumin 3.1 g/dL L g/dL (3.5-5.1) Patient hx anesthesia problems: none Family hx anesthesi
[2022-10-15] MEDS: METOCLOPRAMIDE HCL 10 MG/10 ML SOLN UDC PO ×2 (16:35→20:49)
[2022-10-15] MEDS: BISACODYL 10 MG SUPPOSITORY RECTAL (16:35)
--- NOTE | 2022-10-16 05:11 | PC.NURSE ---
Pt is resting comfortably. Pt has no complaints and expresses no needs at this time. Will continue to monitor pt.
[2022-10-16] MEDS: METOCLOPRAMIDE HCL 10 MG/10 ML SOLN UDC PO ×4 (05:59→20:17)
[2022-10-16 06:00] VITALS: BP 121/64; PULSE 73; RESP 18; TEMP 36.2; O2SAT 100
[2022-10-16 07:00] LABS: Hematocrit 34.2 % (37.0-47.0); Hemoglobin 11.4 g/dL (12.0-15.0); Mean Corpuscular HGB Conc 33.3 g/dl (32-36); Mean Corpuscular Hemoglobin 27.5 pg (26-34); Mean Corpuscular Volume 82.4 fl (80-100); Mean Platelet Volume 9.3 fl (7.4-10.4); Platelet Count Result 255 k/mm3 (150-375); Red Blood Count 4.15 M/mm3 (4.2-5.4); Red Cell Distribution Width 15.9 % (11.5-14.5); White Blood Count 6.2 K/mm3 (4.5-10.0)
[2022-10-16 07:17] LABS: Alanine Aminotransferase 14 U/L (6-35); Albumin Level 3.4 g/dL (3.5-5.1); Alkaline Phosphatase 45 U/L (38-126); Anion Gap 5 mmol/L (8-16); Aspartate Amino Transferase 20 U/L (14-36); Bilirubin,Total 0.5 mg/dL (0.2-1.3); Calcium 7.6 mg/dL (8.4-10.2); Carbon Dioxide 25 mmol/L (22-30); Chloride 103 mmol/L (98-107); Estimated CRCL calculation 142 ml/min; Estimated Glomerular Filt Rate > 60; Glucose 96 mg/dL (65-110); Potassium 2.4 mmol/L (3.4-5.0); Sodium 133 mmol/L (137-145)
[2022-10-16 07:22] LABS: Blood Urea Nitrogen < 2 mg/dL (7-17)
[2022-10-16] MEDS: POTASSIUM CHLORIDE 20 MEQ PACKET (FOR LIQUID) 60 MEQ PO (08:39)
[2022-10-16] MEDS: PANTOPRAZOLE SODIUM IV 40 MG VIAL IV PUSH ×2 (08:39→20:17)
[2022-10-16] MEDS: polyethylene glycoL 3350 17 GM POWD.PACK PO (08:39)
--- NOTE | 2022-10-16 09:12 | WPDGIPROGNO ---
Progress Note: A&P Assessment and Plan (1) Diabetic gastroparesis: Code(s): E11.43 - Type 2 diabetes mellitus with diabetic autonomic (poly)neuropathy; K31.84 - Gastroparesis Status: Acute Assessment and Plan: Patient with apparent diabetic gastroparesis. Delayed gastric emptying on gastric emptying scan. Plan to try Reglan prior to meals for several weeks and then p.r.n. only. Advance diet as tolerated. She likely will do better with soft diet. Elevate head of bed. No late snacks. Hopefully can be discharged soon. Subjective Date/time seen: 10/16/22 09:12 Interval history: Patient alert comfortable this morning. Tolerated diet. Review of Systems Review of Systems: Review of systems noncontributory. Exam Narrative: Physical exam reveals patient be alert comfortable at rest. Vital signs stable. Lungs are clear. Heart without murmur. Abdomen benign. Bowel sounds present soft nontender. Objective Data Vital Signs Vital Signs: Vital Signs - 24 hr 10/15/22 10:10 10/15/22 12:37 10/15/22 12:52 Temperature 97.6 F Pulse Rate 80 69 Respiratory Rate 20 21 H Blood Pressure 131/70 104/61 Pulse Oximetry 96 100 100 Oxygen Delivery Room Air Room Air Room Air 10/15/22 13:02 10/15/22 13:12 10/15/22 20:49 Temperature Pulse Rate 75 72 Respiratory Rate 19 17 Blood Pressure 130/75 145/79 H Pulse Oximetry 100 100 Oxygen Delivery Room Air Room Air Room Air 10/16/22 06:00 10/15/22 22:00 10/16/22 07:52 Temperature 97.1 F L 96.9 F L Pulse Rate 73 80 Respiratory Rate 18 17 Blood Pressure 121/64 133/66 Pulse Oximetry 100 100 Oxygen Delivery Room Air Intake/Output Intake/Output: Intake & Output 10/13/22 10/14/22 10/15/22 10/16/22 23:59 23:59 23:59 23:59 Intake Total 4000 2600 4240 Output Total 1050 2200 3550 Balance 2950 400 690 Meds/Results Medications: Active Medications Generic Name Dose Route Start Last Admin Trade Name Freq PRN Reason Stop Dose Admin Acetaminophen 650 mg 10/12/22 08:04 Acetaminophen 325 Mg Tablet PO Q4H PRN Mild Pain (1-3) or Fever Hydrocodone Bitart/Acetaminophen 1 tab 10/12/22 08:04 10/14/22 02:21 Hydrocodone/Acetaminophen (*Crx) 5-325 Mg Tablet PO 1 tab Q4H PRN Administration Moderate Pain (4-6) Albuterol 1 puff 10/12/22 08:08 Albuterol Sulfate (*Sp) Aerosol 1 Puff INHALATION Q4H PRN shortness of breath or wheezing Hydralazine HCl 10 mg 10/12/22 08:04 Hydralazine Hcl 20 Mg/Ml Vial IV PUSH Q8H PRN Blood Pressure - High Metoclopramide HCl 10 mg 10/15/22 16:30 10/16/22 05:59 Metoclopramide Hcl 10 Mg/10 Ml Soln Udc PO 10 mg ACHS NADJA Administration Morphine Sulfate 2 mg 10/12/22 08:04 10/15/22 04:03 Morphine Sulfate (*Crx) 2 Mg/Ml Inj IV PUSH 2 mg Q4H PRN Administration Pain Rated 7-10 Ondansetron HCl 4 mg 10/12/22 00:56 10/12/22 06:58 Ondansetron Inj 4 Mg/2 Ml Vial IV PUSH 4 mg Q4H PRN Administration Nausea Pantoprazole Sodium 40 mg 10/12/22 09:00 10/16/22 08:39 Pantoprazole Sodium Iv 40 Mg Vial IV PUSH 40 mg Q12HR NADJA Administration Polyethylene Glycol 17 gm 10/16/22 09:00 10/16/22 08:39 Polyethylene Glycol 3350 17 Gm Powd.Pack PO 17 gm QAM NADJA Administration Radiology Results: ITS Impressions Hepatobiliary Scan Nuclear Medicine 10/12/22 13:03 Impression: Normal hepatobiliary scan. No evidence of cystic duct or common bile duct obstruction. This effectively excludes acute cholecystitis. Markedly decreased gallbladder ejection fraction. Findings suggest biliary dyskinesia. Kelly et al.,Sincalide-Stimulated Cholescintigraphy: A Multicenter Investigation to Determine Optimal Infusion Methodology and Gallbladder Ejection Fraction Normal Values. JNM. Vol 51. No.2. Oct 2009. . ADDENDUM: 10/13/22 1516 Correction to technique: Cholecystokinin was not used. 60 minutes
[2022-10-16 11:57] LABS: Potassium 2.8 mmol/L (3.4-5.0)
--- NOTE | 2022-10-16 11:58 | PC.NURSE ---
Left message for provider Rocio for critical K level of 2.8
[2022-10-16] MEDS: POTASSIUM CHLORIDE 20 MEQ PACKET (FOR LIQUID) PO (13:22)
[2022-10-16] MEDS: POTASSIUM CHLORIDE INJ 40 MEQ in SODIUM CHLORIDE 0.9% IV 500 ML 130 MEQ IVPB (13:22)
[2022-10-16 14:42] VITALS: BP 134/80; PULSE 78; RESP 20; TEMP 35.9; O2SAT 99
--- NOTE | 2022-10-16 14:47 | P.PNIM_ITS ---
Progress Note: A&P Assessment and Plan (1) Right upper quadrant abdominal pain: Code(s): R10.11 - Right upper quadrant pain Status: Acute Assessment and Plan: presented on 10/12/22 with multiple episodes of vomiting and inability to maintain PO intake * positive Gay sign * CT of the abdomen does suggest possible gallbladder involvement * HIDA scan revealed normal hepatobiliary scan. No evidence of cystic duct or common bile duct obstruction. Excludes acute cholecystitis. Minical ejection fraction findings suggest biliary dyskinesia/acalculous cholecystitis * Pain medications and anti-emetics ordered * LFTs not elevated * Continue to trend labs * GI consulted and appreciate recommendations. * Pt continued having N/V and was put NPO with NG tube placement per GI * Continue IV fluids 10/13/22 * Patient with possible acalculous cholecystitis with a white count of 14.2 * General surgery consulted and appreciate recommendations. * General surgery did not see need to undergo surgery at this time. * GI trying to rule out gastroparesis. * Gastric emptying scan ordered for tomorrow. 10/14/22 * Gastric emptying scan revealed delayed gastric emptying. * GI suspects diabetic gastroparesis. 10/15/22 * GI doing EGD today 10/16/22 * EGD negative * Probable diabetic gastroparesis * Fluids discontinued (2) Intractable nausea and vomiting: Code(s): R11.2 - Nausea with vomiting, unspecified Status: Inactive Assessment and Plan: Patient presented with intractable N/V * GI consulted and appreciate recommendations. * Pt continued having N/V and was put NPO with NG tube placement per GI * Continue IV fluids * Protonix 40 mg IV started * Zofran Inj 10/13/22 * GI continuing to see pt. * N/V improved with NG tube * Per GI, Plan to clamp NG tube today * Gastric emptying scan ordered 10/14/22 * Patient continued to have nausea with food ingestion. * Patient has not experienced vomiting today. 10/15/22 * Patient NPO today and not having symptoms * Did have nausea last night with dinner 10/16/22 * Fluids discontinued * Stable (3) Essential (primary) hypertension: Code(s): I10 - Essential (primary) hypertension Status: Chronic Assessment and Plan: * Current BP is 140/78 * Hold lisinopril, resume when able to tolerate PO * Trend BP * Add hydralazine with parameters * Adjust therapy as indicated Stable (4) Diabetes mellitus: Code(s): E11.9 - Type 2 diabetes mellitus without complications Status: Chronic Assessment and Plan: * Current glucose 139 * Hold metformin, Jardiance, and Trulicity for now * Continue oral medications as appropriate * Accu-cheks ACHS * ISS * Trend glucose * Adjust therapy as indicated Stable (5) Tachycardia: Code(s): R00.0 - Tachycardia, unspecified Status: Acute Assessment and Plan: * Tachycardia resolved with fluids * Stable (6) Hypokalemia: Code(s): E87.6 - Hypokalemia Status: Acute Assessment and Plan: Patient having hypokalemia during her stay, this could be due to her fluids. * Replenish potassium as necessary. * Magnesium normal 10/16/22 * Patient having critical potassiums in the a.m.. * Continuing to replenish potassium as needed * Patient can be discharged once potassium is stabilized. * Flui
--- NOTE | 2022-10-16 14:47 | PM.IMPN ---
Progress Note: A&P Assessment and Plan (1) Right upper quadrant abdominal pain: Code(s): R10.11 - Right upper quadrant pain Status: Acute Assessment and Plan: presented on 10/12/22 with multiple episodes of vomiting and inability to maintain PO intake positive Gay sign CT of the abdomen does suggest possible gallbladder involvement HIDA scan revealed normal hepatobiliary scan. No evidence of cystic duct or common bile duct obstruction. Excludes acute cholecystitis. Minical ejection fraction findings suggest biliary dyskinesia/acalculous cholecystitis Pain medications and anti-emetics ordered LFTs not elevated Continue to trend labs GI consulted and appreciate recommendations. Pt continued having N/V and was put NPO with NG tube placement per GI Continue IV fluids 10/13/22 Patient with possible acalculous cholecystitis with a white count of 14.2 General surgery consulted and appreciate recommendations. General surgery did not see need to undergo surgery at this time. GI trying to rule out gastroparesis. Gastric emptying scan ordered for tomorrow. 10/14/22 Gastric emptying scan revealed delayed gastric emptying. GI suspects diabetic gastroparesis. 10/15/22 GI doing EGD today 10/16/22 EGD negative Probable diabetic gastroparesis Fluids discontinued (2) Intractable nausea and vomiting: Code(s): R11.2 - Nausea with vomiting, unspecified Status: Inactive Assessment and Plan: Patient presented with intractable N/V GI consulted and appreciate recommendations. Pt continued having N/V and was put NPO with NG tube placement per GI Continue IV fluids Protonix 40 mg IV started Zofran Inj 10/13/22 GI continuing to see pt. N/V improved with NG tube Per GI, Plan to clamp NG tube today Gastric emptying scan ordered 10/14/22 Patient continued to have nausea with food ingestion. Patient has not experienced vomiting today. 10/15/22 Patient NPO today and not having symptoms Did have nausea last night with dinner 10/16/22 Fluids discontinued Stable (3) Essential (primary) hypertension: Code(s): I10 - Essential (primary) hypertension Status: Chronic Assessment and Plan: Current BP is 140/78 Hold lisinopril, resume when able to tolerate PO Trend BP Add hydralazine with parameters Adjust therapy as indicated Stable (4) Diabetes mellitus: Code(s): E11.9 - Type 2 diabetes mellitus without complications Status: Chronic Assessment and Plan: Current glucose 139 Hold metformin, Jardiance, and Trulicity for now Continue oral medications as appropriate Accu-cheks ACHS ISS Trend glucose Adjust therapy as indicated Stable (5) Tachycardia: Code(s): R00.0 - Tachycardia, unspecified Status: Acute Assessment and Plan: Tachycardia resolved with fluids Stable (6) Hypokalemia: Code(s): E87.6 - Hypokalemia Status: Acute Assessment and Plan: Patient having hypokalemia during her stay, this could be due to her fluids. Replenish potassium as necessary. Magnesium normal 10/16/22 Patient having critical potassiums in the a.m.. Continuing to replenish potassium as needed Patient can be discharged once potassium is stabilized. Fluids discontinued Plan Greater than 35 minutes during this encounter Subjective Date/time seen: 10/16/22 14:47 Interval history: Patient feeling much better today states that she has not had any nausea vomiting nor abdominal pain today. Patient going to follow up with GI as an outpatient. Patient's potassium is still low and patient will be able to be discharge once potassium is stabilized. Patient denies fever, dizziness, chest pain, shortness a breath, nausea, vomiting, diarrhea. Review of Systems Review of Systems: All systems reviewed & are unremarkable except as note
[2022-10-16 22:00] VITALS: BP 116/75; PULSE 80; RESP 17; TEMP 36.2; O2SAT 100
[2022-10-17] MEDS: METOCLOPRAMIDE HCL 10 MG/10 ML SOLN UDC PO ×2 (05:56→12:22)
[2022-10-17 06:00] VITALS: BP 114/76; PULSE 76; RESP 17; TEMP 36.1; O2SAT 100
[2022-10-17 06:35] LABS: Hematocrit 35.5 % (37.0-47.0); Hemoglobin 11.6 g/dL (12.0-15.0); Mean Corpuscular HGB Conc 32.7 g/dl (32-36); Mean Corpuscular Hemoglobin 26.9 pg (26-34); Mean Corpuscular Volume 82.4 fl (80-100); Mean Platelet Volume 9.4 fl (7.4-10.4); Platelet Count Result 258 k/mm3 (150-375); Red Blood Count 4.31 M/mm3 (4.2-5.4); White Blood Count 6.7 K/mm3 (4.5-10.0)
[2022-10-17 06:49] LABS: Alanine Aminotransferase 16 U/L (6-35); Albumin Level 3.4 g/dL (3.5-5.1); Alkaline Phosphatase 37 U/L (38-126); Anion Gap 2 mmol/L (8-16); Aspartate Amino Transferase 25 U/L (14-36); Bilirubin,Total 0.5 mg/dL (0.2-1.3); Calcium 8.4 mg/dL (8.4-10.2); Carbon Dioxide 30 mmol/L (22-30); Chloride 104 mmol/L (98-107); Estimated CRCL calculation 116 ml/min; Estimated Glomerular Filt Rate > 60; Glucose 109 mg/dL (65-110); Potassium 3.7 mmol/L (3.4-5.0); Sodium 136 mmol/L (137-145)
[2022-10-17 06:55] LABS: Blood Urea Nitrogen < 2 mg/dL (7-17)
[2022-10-17] MEDS: PANTOPRAZOLE SODIUM IV 40 MG VIAL IV PUSH (09:08)
[2022-10-17] MEDS: polyethylene glycoL 3350 17 GM POWD.PACK PO (09:09)
--- NOTE | 2022-10-17 09:41 | P.DS_ITS ---
DS: Admitting Diagnosis Discharge Date 10/17/22 Admitting Diagnosis Right upper quadrant pain with nausea vomiting DS: Discharge Diagnosis Discharge Diagnosis (1) Right upper quadrant abdominal pain: Code(s): R10.11 - Right upper quadrant pain Status: Acute Assessment and Plan: presented on 10/12/22 with multiple episodes of vomiting and inability to maintain PO intake * positive Gay sign * CT of the abdomen does suggest possible gallbladder involvement * HIDA scan revealed normal hepatobiliary scan. No evidence of cystic duct or common bile duct obstruction. Excludes acute cholecystitis. Minical ejection fraction findings suggest biliary dyskinesia/acalculous cholecystitis * Pain medications and anti-emetics ordered * LFTs not elevated * Continue to trend labs * GI consulted and appreciate recommendations. * Pt continued having N/V and was put NPO with NG tube placement per GI * Continue IV fluids 10/13/22 * Patient with possible acalculous cholecystitis with a white count of 14.2 * General surgery consulted and appreciate recommendations. * General surgery did not see need to undergo surgery at this time. * GI trying to rule out gastroparesis. * Gastric emptying scan ordered for tomorrow. 10/14/22 * Gastric emptying scan revealed delayed gastric emptying. * GI suspects diabetic gastroparesis. 10/15/22 * GI doing EGD today 10/16/22 * EGD negative * Probable diabetic gastroparesis * Fluids discontinued (2) Intractable nausea and vomiting: Code(s): R11.2 - Nausea with vomiting, unspecified Status: Inactive Assessment and Plan: Patient presented with intractable N/V * GI consulted and appreciate recommendations. * Pt continued having N/V and was put NPO with NG tube placement per GI * Continue IV fluids * Protonix 40 mg IV started * Zofran Inj 10/13/22 * GI continuing to see pt. * N/V improved with NG tube * Per GI, Plan to clamp NG tube today * Gastric emptying scan ordered 10/14/22 * Patient continued to have nausea with food ingestion. * Patient has not experienced vomiting today. 10/15/22 * Patient NPO today and not having symptoms * Did have nausea last night with dinner 10/16/22 * Fluids discontinued * Stable (3) Essential (primary) hypertension: Code(s): I10 - Essential (primary) hypertension Status: Chronic Assessment and Plan: * Current BP is 140/78 * Hold lisinopril, resume when able to tolerate PO * Trend BP * Add hydralazine with parameters * Adjust therapy as indicated Stable (4) Diabetes mellitus: Code(s): E11.9 - Type 2 diabetes mellitus without complications Status: Chronic Assessment and Plan: * Current glucose 139 * Hold metformin, Jardiance, and Trulicity for now * Continue oral medications as appropriate * Accu-cheks ACHS * ISS * Trend glucose * Adjust therapy as indicated Stable (5) Tachycardia: Code(s): R00.0 - Tachycardia, unspecified Status: Acute Assessment and Plan: * Tachycardia resolved with fluids * Stable (6) Hypokalemia: Code(s): E87.6 - Hypokalemia Status: Acute Assessment and Plan: Patient having hypokalemia during her stay, this could be due to her fluids. * Replenish potassium as necessary. * Magnesium normal 10/16/22 * Patient having critical
--- NOTE | 2022-10-17 09:41 | PM.DS ---
DS: Admitting Diagnosis Discharge Date 10/17/22 Admitting Diagnosis Right upper quadrant pain with nausea vomiting DS: Discharge Diagnosis Discharge Diagnosis (1) Right upper quadrant abdominal pain: Code(s): R10.11 - Right upper quadrant pain Status: Acute Assessment and Plan: presented on 10/12/22 with multiple episodes of vomiting and inability to maintain PO intake positive Gay sign CT of the abdomen does suggest possible gallbladder involvement HIDA scan revealed normal hepatobiliary scan. No evidence of cystic duct or common bile duct obstruction. Excludes acute cholecystitis. Minical ejection fraction findings suggest biliary dyskinesia/acalculous cholecystitis Pain medications and anti-emetics ordered LFTs not elevated Continue to trend labs GI consulted and appreciate recommendations. Pt continued having N/V and was put NPO with NG tube placement per GI Continue IV fluids 10/13/22 Patient with possible acalculous cholecystitis with a white count of 14.2 General surgery consulted and appreciate recommendations. General surgery did not see need to undergo surgery at this time. GI trying to rule out gastroparesis. Gastric emptying scan ordered for tomorrow. 10/14/22 Gastric emptying scan revealed delayed gastric emptying. GI suspects diabetic gastroparesis. 10/15/22 GI doing EGD today 10/16/22 EGD negative Probable diabetic gastroparesis Fluids discontinued (2) Intractable nausea and vomiting: Code(s): R11.2 - Nausea with vomiting, unspecified Status: Inactive Assessment and Plan: Patient presented with intractable N/V GI consulted and appreciate recommendations. Pt continued having N/V and was put NPO with NG tube placement per GI Continue IV fluids Protonix 40 mg IV started Zofran Inj 10/13/22 GI continuing to see pt. N/V improved with NG tube Per GI, Plan to clamp NG tube today Gastric emptying scan ordered 10/14/22 Patient continued to have nausea with food ingestion. Patient has not experienced vomiting today. 10/15/22 Patient NPO today and not having symptoms Did have nausea last night with dinner 10/16/22 Fluids discontinued Stable (3) Essential (primary) hypertension: Code(s): I10 - Essential (primary) hypertension Status: Chronic Assessment and Plan: Current BP is 140/78 Hold lisinopril, resume when able to tolerate PO Trend BP Add hydralazine with parameters Adjust therapy as indicated Stable (4) Diabetes mellitus: Code(s): E11.9 - Type 2 diabetes mellitus without complications Status: Chronic Assessment and Plan: Current glucose 139 Hold metformin, Jardiance, and Trulicity for now Continue oral medications as appropriate Accu-cheks ACHS ISS Trend glucose Adjust therapy as indicated Stable (5) Tachycardia: Code(s): R00.0 - Tachycardia, unspecified Status: Acute Assessment and Plan: Tachycardia resolved with fluids Stable (6) Hypokalemia: Code(s): E87.6 - Hypokalemia Status: Acute Assessment and Plan: Patient having hypokalemia during her stay, this could be due to her fluids. Replenish potassium as necessary. Magnesium normal 10/16/22 Patient having critical potassiums in the a.m.. Continuing to replenish potassium as needed Patient can be discharged once potassium is stabilized. Fluids discontinued Plan Greater than 35 minutes during this encounter DS: Summary Hospital Course Reason for hospitalization: Right upper quadrant pain with nausea vomiting. Hospital Course: Periphery of female with a past medical history of diabetes, hypertension, hyperlipidemia presented to the ED on 10/12/2022 due to right upper quadrant pain and nausea vomiting. CT abdomen pelvis suggested possible gallbladder involvement although no stone seen. GI consu
--- NOTE | 2022-10-17 10:03 | WPDGIPROGNO ---
Progress Note: A&P Assessment and Plan (1) Diabetic gastroparesis: Code(s): E11.43 - Type 2 diabetes mellitus with diabetic autonomic (poly)neuropathy; K31.84 - Gastroparesis Status: Acute Assessment and Plan: Patient's nausea vomiting has resolved. Delayed gastric emptying on gastric emptying scan appears to show that she has diabetic gastroparesis. Plan for Reglan to be use briefly. Discontinue this after several weeks. Afterwards we may use it intermittently. She is instructed not to use it long-term because of potential side effects. Strict control of diabetes strongly encouraged. She should elevate head of bed at night. Soft liquid diets would be tolerated best when symptoms flare. Anticipate discharge today. (2) Diabetes mellitus: Code(s): E11.9 - Type 2 diabetes mellitus without complications Status: Acute Assessment and Plan: Diabetes under control primary care service should continue strict control of glucose encouraged. Subjective Date/time seen: 10/17/22 10:03 Interval history: Patient alert comfortable this morning. Tolerating regular diet without difficulties. No longer with nausea vomiting. Anxious to go home. Review of Systems Review of Systems: Review of systems noncontributory. Exam Narrative: Physical exam reveals patient be alert. Vital signs stable. HEENT exam is unremarkable. Patient is anicteric. Lungs are clear to auscultation and percussion. Heart without murmur. Abdomen bowel sounds present soft nontender. Objective Data Vital Signs Vital Signs: Vital Signs - 24 hr 10/16/22 14:42 10/16/22 22:00 10/17/22 06:00 Temperature 96.7 F L 97.1 F L 97 F L Pulse Rate 78 80 76 Respiratory Rate 20 17 17 Blood Pressure 134/80 116/75 114/76 Pulse Oximetry 99 100 100 Intake/Output Intake/Output: Intake & Output 10/14/22 10/15/22 10/16/22 10/17/22 23:59 23:59 23:59 23:59 Intake Total 2600 4240 1240 Output Total 2200 3550 1600 Balance 400 690 -360 Meds/Results Medications: Active Medications Generic Name Dose Route Start Last Admin Trade Name Freq PRN Reason Stop Dose Admin Acetaminophen 650 mg 10/12/22 08:04 Acetaminophen 325 Mg Tablet PO Q4H PRN Mild Pain (1-3) or Fever Hydrocodone Bitart/Acetaminophen 1 tab 10/12/22 08:04 10/14/22 02:21 Hydrocodone/Acetaminophen (*Crx) 5-325 Mg Tablet PO 1 tab Q4H PRN Administration Moderate Pain (4-6) Albuterol 1 puff 10/12/22 08:08 Albuterol Sulfate (*Sp) Aerosol 1 Puff INHALATION Q4H PRN shortness of breath or wheezing Hydralazine HCl 10 mg 10/12/22 08:04 Hydralazine Hcl 20 Mg/Ml Vial IV PUSH Q8H PRN Blood Pressure - High Metoclopramide HCl 10 mg 10/15/22 16:30 10/17/22 05:56 Metoclopramide Hcl 10 Mg/10 Ml Soln Udc PO 10 mg ACHS NADJA Administration Morphine Sulfate 2 mg 10/12/22 08:04 10/15/22 04:03 Morphine Sulfate (*Crx) 2 Mg/Ml Inj IV PUSH 2 mg Q4H PRN Administration Pain Rated 7-10 Ondansetron HCl 4 mg 10/12/22 00:56 10/12/22 06:58 Ondansetron Inj 4 Mg/2 Ml Vial IV PUSH 4 mg Q4H PRN Administration Nausea Pantoprazole Sodium 40 mg 10/12/22 09:00 10/17/22 09:08 Pantoprazole Sodium Iv 40 Mg Vial IV PUSH 40 mg Q12HR NADJA Administration Polyethylene Glycol 17 gm 10/16/22 09:00 10/17/22 09:09 Polyethylene Glycol 3350 17 Gm Powd.Pack PO 17 gm QAM NADJA Administration Radiology Results: ITS Impressions Hepatobiliary Scan Nuclear Medicine 10/12/22 13:03 Impression: Normal hepatobiliary scan. No evidence of cystic duct or common bile duct obstruction. This effectively excludes acute cholecystitis. Markedly decreased gallbladder ejection fraction. Findings suggest biliary dyskinesia. Kelly et al.,Sincalide-Stimulated Cholescintigraphy: A Multicenter Investigation to Determine Optimal Infusion Methodology and Gallbladder Ejection Fracti
== END 2022-10-17 15:15 | disposition home or self-care (01) | DRG 48 ==
LOC: ANHED 21:36 → ANH3MEDSUR 10-12 02:44
PROVIDERS: Internal Medicine Gastroenterology; Nurse Practitioner; Surgery; Admitting Provider Internal Medicine; Emergency Provider Emergency Medicine; PCP Family Medicine; Visit Provider Internal Medicine Critical Care Medicine
PROC: 0DJ08ZZ Inspection of Upper Intestinal Tract, Via Natural or Artificial Opening Endoscopic (ICD-10-PCS; CPT 43235; principal; 2022-10-15 13:00)
DX: E11.43 Type 2 diabetes mellitus with diabetic autonomic (poly)neuropathy (principal); K81.9 Cholecystitis, unspecified; K31.84 Gastroparesis; D64.9 Anemia, unspecified; F41.9 Anxiety disorder, unspecified; Z20.822 Contact with and (suspected) exposure to COVID-19; I10 Essential (primary) hypertension; E78.5 Hyperlipidemia, unspecified; E87.6 Hypokalemia; E11.42 Type 2 diabetes mellitus with diabetic polyneuropathy; R00.0 Tachycardia, unspecified; Z87.891 Personal history of nicotine dependence
CPT/HCPCS: 36415; 76705; 78226; 78264; 80053; 81001; 82948; 83690; 83735; 84132; 85025; 85027; 85610; 85730; 87081; 87637; 96361; 96374; 96375; 96376; 99285; A9270; A9537; A9541; C9113; G0378; G0379; J0131; J2270; J2405; J2543; J2704; J3480; J7030; J7040; J7120

== ENCOUNTER 2022-10-30 11:17 | Outpatient (CLI) | payer OTHER, SELFPAY ==
[2022-10-30 11:48] LABS: Anion Gap 4 mmol/L (8-16); Blood Urea Nitrogen 14 mg/dL (7-17); Calcium 8.8 mg/dL (8.4-10.2); Carbon Dioxide 31 mmol/L (22-30); Chloride 100 mmol/L (98-107); Estimated Glomerular Filt Rate > 60; Glucose 170 mg/dL (65-110); Potassium 4.4 mmol/L (3.4-5.0); Sodium 135 mmol/L (137-145)
[2022-10-30 12:15] LABS: D Dimer 0.45 ug/mL (<0.48)
== END 2022-10-30 11:18 | disposition home or self-care (01) ==
LOC: ANHLAB 11:19
PROVIDERS: PCP Family Medicine; Visit Provider Nurse Practitioner Family
DX: E87.6 Hypokalemia (principal); M25.473 Effusion, unspecified ankle
CPT/HCPCS: 36415; 80048; 85380

== ENCOUNTER 2023-09-12 08:41 | Outpatient (CLI) | payer OTHER, SELFPAY ==
--- NOTE | ~2023-09-12 | MM_ITS ---
EXAMINATION: MM screening yana BI w farhad HISTORY: Screening mammogram TECHNIQUE: Craniocaudal and mediolateral oblique 3-D tomosynthesis images were obtained and synthetic 2-D images were generated. CAD analysis was submitted and interpreted. COMPARISON: 04/13/2020 bilateral screening mammogram BREAST PARENCHYMAL COMPOSITION: The breasts are almost entirely fatty. FINDINGS: There is no evidence of suspicious mass, calcification, or architectural distortion to sugg est malignancy in either breast. There has been no suspicious interval change. IMPRESSION: 1. No mammographic evidence of malignancy. 2. Recommend routine screening mammography in one year. BI-RADS Category 1: Negative Reviewed, dictated and finalized at location A. [employer]
== END 2023-09-12 08:42 | disposition home or self-care (01) ==
LOC: ANHIMG 08:42
PROVIDERS: PCP Family Medicine; Visit Provider Nurse Practitioner Family
DX: Z12.31 Encounter for screening mammogram for malignant neoplasm of breast (principal)
CPT/HCPCS: 77063; 77067

== ENCOUNTER 2024-04-02 08:56 | Outpatient (CLI) | payer OTHER, SELFPAY ==
[2024-04-02 09:22] LABS: Hematocrit 34.8 % (37.0-47.0); Hemoglobin 10.2 g/dL (12.0-15.0); Mean Corpuscular HGB Conc 29.3 g/dl (32-36); Mean Corpuscular Hemoglobin 21.7 pg (26-34); Mean Corpuscular Volume 74.2 fl (80-100); Mean Platelet Volume 9.7 fl (7.4-10.4); Platelet Count Result 272 k/mm3 (150-375); Red Blood Count 4.69 M/mm3 (4.2-5.4); Red Cell Distribution Width 18.5 % (11.5-14.5); White Blood Count 9.4 K/mm3 (4.5-10.0)
[2024-04-02 09:34] LABS: Alanine Aminotransferase 18 U/L (6-35); Albumin Level 4.4 g/dL (3.5-5.1); Alkaline Phosphatase 67 U/L (38-126); Anion Gap 8 mmol/L (4-12); Aspartate Amino Transferase 25 U/L (14-36); Bilirubin,Total 0.5 mg/dL (0.2-1.3); Blood Urea Nitrogen 13 mg/dL (7-17); Calcium 8.8 mg/dL (8.4-10.2); Carbon Dioxide 26 mmol/L (22-30); Chloride 105 mmol/L (98-107); Cholesterol 151 mg/dL (0-200); Estimated Glomerular Filt Rate > 60; Glucose 167 mg/dL (65-110); HDL Direct 77 mg/dL; Potassium 3.8 mmol/L (3.4-5.0); Sodium 139 mmol/L (137-145); Triglycerides 75 mg/dL (<150)
[2024-04-02 09:45] LABS: LDL Cholesterol Direct 66 mg/dL
[2024-04-02 09:49] LABS: Creatinine Urine 60.4 mg/dL
[2024-04-02 09:55] LABS: MALB Creatinine Ratio 20.5 mg/g (0-30); Microalbumin Urine Random 12.4 mg/L (0-16.7)
[2024-04-02 10:06] LABS: Vitamin D 25 Hydroxy 20.1 ng/mL
== END 2024-04-02 08:57 | disposition home or self-care (01) ==
LOC: ANHLAB 08:57
PROVIDERS: PCP Family Medicine; Visit Provider Nurse Practitioner Family
DX: E78.5 Hyperlipidemia, unspecified (principal); F41.9 Anxiety disorder, unspecified; E55.9 Vitamin D deficiency, unspecified; E11.9 Type 2 diabetes mellitus without complications; I10 Essential (primary) hypertension
CPT/HCPCS: 36415; 80053; 80061; 82043; 82306; 84443; 85027

== ENCOUNTER 2024-05-04 10:18 | Outpatient (CLI) | payer OTHER, SELFPAY ==
--- NOTE | ~2024-05-04 | US_ITS ---
Right index finger lump ULTRASOUND Ordering provider: Edgar Hill MD History: . eval Right index finger mass for solid vs cystic . Comparison: None. FINDINGS/impression: Anechoic well-circumscribed mass with no vascularity most likely a cyst measuring 0.7 x 0.4 x 0.7 cm. Reviewed, dictated and finalized at location A.
== END 2024-05-04 10:19 | disposition home or self-care (01) ==
LOC: ANHIMG 10:20
PROVIDERS: PCP Family Medicine; Visit Provider Plastic Surgery
DX: R22.31 Localized swelling, mass and lump, right upper limb (principal)
CPT/HCPCS: 76882

== ENCOUNTER 2024-06-15 06:51 | Outpatient (CLI) | payer OTHER, SELFPAY ==
[2024-06-15 07:42] LABS: Anion Gap 7 mmol/L (4-12); Blood Urea Nitrogen 12 mg/dL (7-17); Calcium 8.6 mg/dL (8.4-10.2); Carbon Dioxide 25 mmol/L (22-30); Chloride 100 mmol/L (98-107); Estimated Glomerular Filt Rate > 60; Glucose 184 mg/dL (65-110); Potassium 3.7 mmol/L (3.4-5.0); Sodium 132 mmol/L (137-145)
[2024-06-15 08:52] LABS: Folic Acid > 20.0 ng/mL (2.76->20)
[2024-06-15 11:48] LABS: Iron 32 ug/dL (37-170)
[2024-06-15 11:58] LABS: Percent Iron Saturation 7 % (20-50)
[2024-06-15 11:59] LABS: Vitamin D 25 Hydroxy 66.9 ng/mL
== END 2024-06-15 06:52 | disposition home or self-care (01) ==
PROVIDERS: PCP Family Medicine; Referring Provider Anesthesiology; Visit Provider Nurse Practitioner Family
DX: N28.9 Disorder of kidney and ureter, unspecified (principal); E55.9 Vitamin D deficiency, unspecified; D64.9 Anemia, unspecified
CPT/HCPCS: 36415; 80048; 82306; 82607; 82746; 83540; 83550

== ENCOUNTER 2024-06-20 02:26 | Day surgery (SDC) | payer OTHER, SELFPAY ==
[2024-06-13 13:05] VITALS: BMI 36.0
--- NOTE | 2024-06-13 13:13 | SUR.PREOP ---
Addendum entered by Bianka Carias RN 06/14/24 10:44: Pt instructed no more than 20 oz of clear liquids between midnight and 0515. Pt verbalizes understanding. Original Note: Report to the Outpatient Waiting Room, entrance under the green pavilion located off [facility], at time 1115 on date 06/20/24. Planned Procedure Time: 1:15pm.? Time changes happen often and if your time is changed the preop area will call you the afternoon before. - You and your visitor will be asked to self-screen and do not enter if you have any COVID symptoms. Please call surgeon if you need to reschedule. - A mask is optional within the hospital at this time. Patients may have clear liquids (water, carbonated beverages, clear teas, apple juice) until 3 hours prior to surgery with a maximum of 20 ounces. - No food from midnight until time of surgery and no smoking - Infants may have breast milk until 4 hours before surgery, infant formula 6 hours prior to surgery. - Children will be allowed to drink immediately following surgery.? If applicable, please bring a bottle or sippy cup to assist with drinking. Juice, water, soda, and popsicles are readily available.? For infants on formula, please bring formula the day of surgery.? Pacifiers are allowed. Take only the following medications with a SIP of water on the morning of surgery: sertaline DO NOT STOP ANY OF YOUR OTHER PRESCRIPTION MEDICATIONS PRIOR TO SURGERY EXCEPT THE FOLLOWING Medications to discontinue per physician : gabapentin, jardiance, and metformin - hold morning of procedure Date to take last dose Please no make-up, nail albanian, hairspray, perfume, deodorant, or body powder the day of surgery.? No jewelry (including any body piercings) or valuables the day of surgery, leave them at home.? Please take a shower or bath the night before, or the morning of, surgery with an antibacterial soap.? Wear comfortable, loose fitting clothing.? Children are encouraged to wear pajamas. - Jewelry must be removed prior to entering the operating room.? Rings and piercings that are not removed may be cut off. - The hospital will not accept responsibility for valuables.? - Please leave all valuables, including medications, at home the day of surgery. If you are going home after surgery, a licensed truck driver's offsider must drive you home.? - NO public transportation without another adult if you receive anesthesia. - We recommend that an adult stay with you for 24 hours following discharge. - We also recommend that you do not drive, make important decision, drink alcoholic beverages, or take any drugs that were not prescribed by your health care provider for at least 24 hours after your discharge time. For Pediatric surgeries, we recommend two adults accompany the child home. Follow any additional instructions given to you from your surgeon. Telephone instructions given to _patient_and asked if any additional questions and then verbalized understanding. Patient advised to call surgeon office or pre surgery nurse liaison [phone] if any additional questions.
--- NOTE | 2024-06-20 07:12 | PM.HPGS ---
History of Present Illness History of Present Illness Chief complaint: Swelling of mass and lump right upper limb Narrative: Patient seen and examined in pre-operative holding area. No interval change in medical history or symptoms. Patient recalls previous discussion of benefits and alternatives to procedure. Continues to desire to proceed with right ring finger a1 danica releasae and right index finger mass excision. Reviewed procedure, post-op expectations and risks including but not limited to bleeding, infection, injury to tendon/nerve/vessel, decreased hand function, stiffness, RSD, no change or worsening of symptoms, recurrence. I discussed the possible use of assistants and their participation in the case. Patient stated understanding and signed the consent form wishing to proceed. Review of Systems Review of Systems: All systems reviewed & are unremarkable except as noted in HPI and below PMFSH Past Medical History Medical History (Updated 04/16/24 @ 16:19 by Edgar Hill MD) Abrasion of knee, left Anemia Anxiety Ataxia BMI 34.0-34.9,adult Callus of foot Constipation Diabetes mellitus Diabetes mellitus Essential (primary) hypertension Fibular abnormality Hives Hyperlipidemia Hyponatremia Hypotension Nausea & vomiting Neuropathy Open wound of plantar aspect of foot Screening for breast cancer Type 2 diabetes mellitus without complications Vitamin D deficiency Weight loss Surgical History Surgical History H/O endoscopy No pertinent past surgical history Family History Family History Grandparent Cerebrovascular accident Family history of lung cancer Diabetes mellitus Father No problems noted. Mother COPD (chronic obstructive pulmonary disease) Emphysema lung Sibling No problems noted. Social History Social History Social History: Patient lives with her Laz who will be her surrogate. She has 2 boys and wishes to be a full code at this time. Patient also has 2 cats at home Smoking packs per day: 2 Smoking cigarettes per day: 40.0 Years smoked: 25 Smoking pack-years: 50.00 Smoking status: Former smoker Tobacco type: cigarettes Second hand tobacco smoke exposure: No Additional smoking assessment comments: Quit about 12 years ago Alcohol intake: never Substance use: current Substance use type: marijuana Other substance usage details: smoking, 4x per week Last use: 10/07/2022 Lack of Transportation: No Lack of Food: Never True Current Housing: I Have Housing Concerned About Future Housing: No Difficulty Paying Gas/Electric Bills: No Difficulty Paying for Meds: No Currently Unemployed: No Education: High School Diploma/GED Difficulty w/ Childcare or Family Care: No Living arrangements: with family Additional living arrangements comments: Occupation/Education: unemployed Additional occupation/education comments: House Gender identity (if verbalized by the patient): Female Sexual Orientation (if Verbalized by the Patient): Straight or Heterosexual Spiritual care concerns: No Agree to blood products: Yes Meds Home Medications and Allergies Home Medications Medication Instructions Recorded Confirmed Type empagliflozin 25 mg tablet 25 mg PO DAILY #90 tabs 04/23/24 06/13/24 Rx (Jardiance) sertraline 100 mg tablet (Zoloft) 200 mg PO DAILY #180 tabs 05/22/24 06/13/24 Rx rosuvastatin 40 mg tablet 40 mg PO DAILY #90 tabs 05/29/24 06/13/24 Rx gabapentin 600 mg tablet 600 mg PO TID #90 tabs 06/06/24 06/13/24 Rx famotidine 20 mg tablet 20 mg PO HS 06/13/24 06/13/24 History metformin 500 mg tablet,extended 500 mg PO QID 06/13/24 06/13/24 History release 24 hr ferrous sulfate 325 mg (65 mg 325 mg PO DAILY #30 tabs 06/19/24 Rx
--- NOTE | 2024-06-20 07:13 | W.PM.PROC2 ---
Procedure Note - Detailed Date of Procedure 06/20/24 Pre-op Diagnosis R IF mass and R RF trigger Post-op Diagnosis Same Procedure Performed R RF a1 danica release and R IF mass excision Surgeon Edgar Hill MD [employer] Professor Cy Orr PA-C Anesthesia MAC Description of Procedure INFORMED CONSENT: The patient was seen and examined and marked in the pre-op area.? The patient signed the consent form. PROCEDURE IN DETAIL:The patient taken back to OR on the stretcher in supine position. Time out performed with anesthesia, surgeon and staff agreeing on patient's name site and surgery to be performed SCDs were placed on the lower extremities and inflated. A tourniquet was placed on {right} upper extremity and antibiotics given IV After anesthesia administered sedation I injected {5}cc 1%lido and 0.5% marcaine plain were given for digital blocks in the palm The?{right upper extremity}?was prepped and draped in sterile fashion the??{right upper extremity} was? exsanguinated with Esmarch bandage and tourniquet inflated to 250mmHg I took my attention 1st to the right ring finger where I made a longitudinal incision over the A1 danica through skin and dermis with a 15 blade scalpel. Littler scissors were used to spread down to the A1 danica. The A1 danica was initially incised with a 15 blade scalpel and then I used the Littler scissors to spread above it and below it proximally and distally and completed the transection entirely. Ragnell retractor was used to withdraw the FDS and FDP tendons for inspection. The tendons were free of masses and synovitis and gliding smoothly in the sheath without triggering or crepitus. I irrigated with normal saline and closure with 4-0 chromic. Next I took my attention to the right index finger mass where I made a longitudinal incision over the ulnar border of the index finger proximal phalanx overlying the mass through skin and dermis with a 15 blade scalpel. Littler scissors were used to spread through the subcutaneous tissue. The extensor gama was retracted dorsally and the soft tissues were retracted volarly ES I proceeded with circumferential dissection number the mass which appeared to be a retinacular cyst coming off of the A2 danica. I proceeded with sharp excision of the mass including a distal portion of the A2 danica with 15 blade scalpel. I cauterized the base of this resection with bipolar cautery. I irrigated with normal saline and closed skin with 4-0 chromic. A dressing of xeroform, 4x4, earl, and an julio bandage was appliedafter the tourniquet was let down noting the hand was warm and well perfused. The patient was then awaken from anesthesia and transferred to the recovery room in stable condition.? Complications - none EBL- 0cc Disposition - home in stable conditions Cy Orr PA-C was essential for positioning, retraction, closure and dressing placement [facility] [place] Billing Surgery - Charge Forward: Surgery Billing ([id number] same for cy adding modifier )
[2024-06-20] MEDS: LACTATED RINGERS 1,000 ML 30 ML IV CONT (09:00)
[2024-06-20 09:02] LABS: Glucose Point of Care 171 mg/dl (65-105)
[2024-06-20 09:25] VITALS: BP 116/56; PULSE 85; RESP 16; TEMP 36.1; O2SAT 100
--- NOTE | 2024-06-20 09:34 | WPDANESEPPF ---
Anes - Initial Pre Proc Eval Procedure: Operation Date: 06/20/24 10:30 Proposed Procedures p Right Ring Finger A-1 Feliz Release, Right Index Finger Mass Excision - Edgar Hill MD Date/Time: 06/20/24 09:34 Surgeon: Edgar Hill MD Pre Op Diagnosis: Swelling of mass and lump right upper limb Patient Data Age: 48 Gender: F Height: 1.63 m Weight: 95.1 kg Last Vital Signs Temp 36.1 C L 06/20/24 09:25 Pulse 85 06/20/24 09:25 Resp 16 06/20/24 09:25 BP 116/56 L 06/20/24 09:25 Pulse Ox 100 06/20/24 09:25 O2 Del Method Room Air 06/20/24 09:25 Allergies Allergy/AdvReac Type Severity Reaction Status Date / Time codeine AdvReac Mild Nausea Verified 06/20/24 09:22 Home Medications Medication Instructions Recorded Confirmed Type empagliflozin 25 mg tablet 25 mg PO DAILY #90 tabs 04/23/24 06/20/24 Rx (Jardiance) sertraline 100 mg tablet (Zoloft) 200 mg PO DAILY #180 tabs 05/22/24 06/20/24 Rx rosuvastatin 40 mg tablet 40 mg PO DAILY #90 tabs 05/29/24 06/20/24 Rx gabapentin 600 mg tablet 600 mg PO TID #90 tabs 06/06/24 06/20/24 Rx famotidine 20 mg tablet 20 mg PO HS 06/13/24 06/20/24 History metformin 500 mg tablet,extended 500 mg PO QID 06/13/24 06/20/24 History release 24 hr ferrous sulfate 325 mg (65 mg 325 mg PO DAILY #30 tabs 06/19/24 06/20/24 Rx iron) tablet tramadol 50 mg tablet 50 mg PO Q6H PRN pain #12 tabs 06/20/24 Rx Laboratory Tests 06/20/24 08:44 POC Capillary Glucose 171 H mg/dl (65-105) Patient hx anesthesia problems: none Family hx anesthesia problems: none Results Review: All pre-operative results and documents have been reviewed as part of the pre-operative evaluation. [facility] Past Medical History Medical History Abrasion of knee, left Anemia Anxiety Ataxia BMI 34.0-34.9,adult Callus of foot Constipation Diabetes mellitus Diabetes mellitus Essential (primary) hypertension Fibular abnormality Hives Hyperlipidemia Hyponatremia Hypotension Nausea & vomiting Neuropathy Open wound of plantar aspect of foot Screening for breast cancer Type 2 diabetes mellitus without complications Vitamin D deficiency Weight loss Surgical History Surgical History H/O endoscopy No pertinent past surgical history Family History Family History Grandparent Cerebrovascular accident Family history of lung cancer Diabetes mellitus Father No problems noted. Mother COPD (chronic obstructive pulmonary disease) Emphysema lung Sibling No problems noted. Social History Social History Social History: Patient lives with her Laz who will be her surrogate. She has 2 boys and wishes to be a full code at this time. Patient also has 2 cats at home Smoking packs per day: 2 Smoking cigarettes per day: 40.0 Years smoked: 25 Smoking pack-years: 50.00 Smoking status: Former smoker Tobacco type: cigarettes Second hand tobacco smoke exposure: No Additional smoking assessment comments: Quit about 12 years ago Alcohol intake: never Substance use: current Substance use type: marijuana Other substance usage details: smoking, 4x per week Last use: 10/07/2022 Lack of Transportation: No Lack of Food: Never True Current Housing: I Have Housing Concerned About Future Housing: No Difficulty Paying Gas/Electric Bills: No Difficulty Paying for Meds: No Currently Unemployed: No Education: High School Diploma/GED Difficulty w/ Childcare or Family Care: No Living arrangements: with family Additional living arrangements comments: Occupation/Education: unemployed Additional occupation/education comments: House Gender identity (if verbalized by the patient): F
[2024-06-20] MEDS: LIDOCAINE HCL 1% LOCAL INJ 10 ML VIAL INFILTRATE (09:38)
[2024-06-20] MEDS: ceFAZolin 2 GM/D5W 50 ML 2 GM/50 ML BAG IVPB (09:38)
[2024-06-20 09:40] LABS: BEDSIDEPREGUCG Negative (Negative)
[2024-06-20 09:59] VITALS: BP 95/56; PULSE 65; RESP 13; O2SAT 94
[2024-06-20 10:10] LABS: Glucose Point of Care 148 mg/dl (65-105)
[2024-06-20 10:20] VITALS: BP 106/62; PULSE 69; RESP 15; O2SAT 95
[2024-06-20 10:37] VITALS: BP 120/71; PULSE 72; RESP 16; O2SAT 95
== END 2024-06-20 10:41 | disposition home or self-care (01) ==
PROVIDERS: Physician Assistant Surgical; PCP Family Medicine; Visit Provider Plastic Surgery
PROC: (CPT 26055; principal; 2024-06-20 10:30)
DX: M65.341 Trigger finger, right ring finger (principal); M67.441 Ganglion, right hand; I10 Essential (primary) hypertension; E78.5 Hyperlipidemia, unspecified; E11.40 Type 2 diabetes mellitus with diabetic neuropathy, unspecified; D64.9 Anemia, unspecified; F41.9 Anxiety disorder, unspecified; E55.9 Vitamin D deficiency, unspecified; Z87.891 Personal history of nicotine dependence; F12.90 Cannabis use, unspecified, uncomplicated; Z79.84 Long term (current) use of oral hypoglycemic drugs
CPT/HCPCS: 26160; 26055; 82948; 88304; A9270; J0690; J2704; J3010; J7120

== ENCOUNTER 2025-02-08 09:38 | Observation (INO) | payer OTHER, SELFPAY ==
[2025-02-08] VITALS (8 sets, daily range): BP systolic 131–156; BP diastolic 70–80; PULSE 62–87; RESP 14–20; TEMP 36.1–36.6; O2SAT 98–100; BMI 34.4
--- NOTE | ~2025-02-08 | CT_ITS ---
EXAMINATION: CT cervical spine wo con DATE: 02/08/2025 10:17 INDICATION: Fall with head injury TECHNIQUE: Computed tomography (CT) of the cervical spine was performed without intravenous contrast. Automated exposure control and iterative reconstruction technique were employed. The dose-length pro duct was 506.55 mGy-cm. COMPARISON: None FINDINGS: Straightening of the normal cervical lordosis which could be positional or due to muscle spasm. 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 Vertebral body heights are normal. No fracture. Disc heights are normal. No central canal stenosis. Multilevel mild cervical facet and uncovertebral osteoarthritis. No neural foraminal stenosis. Cervical soft tissues are unremarkable. Visualized apic es of lungs are clear. IMPRESSION: 1. Mild cervical uncovertebral and facet osteoarthritis and straightening of the normal cervical lord osis which could be positional or due to muscle spasm. Otherwise unremarkable cervical spine CT with no acute fracture. Reviewed, dictated and finalized at location A. IMPRESSION: 1. Mild cervical uncovertebral and facet osteoarthritis and straightening of th e normal cervical lordosis which could be positional or due to muscle spasm. Ot herwise unremarkable cervical spine CT with no acute fracture.
--- NOTE | ~2025-02-08 | US_ITS ---
EXAMINATION: US carotid duplex BI DATE: 02/08/2025 16:02 INDICATION: Syncope TECHNIQUE: Grayscale, color Doppler, and pulsed Doppler images of the cervical carotid arteries were obtained. The degree of vessel stenosis is placed in one of the following categories: normal, <50%, 5 0-69%, >=70% but less than near-occlusion, near-occlusion, or total occlusion. Note that percent sten osis relative to normal distal artery lumen diameter is indirectly measured from velocity measurement s as described by Jake, et al. Radiology 2003; 229:340-346. COMPARISON: None. FINDINGS: RIGHT: The right common carotid artery (CCA) peak systolic velocity (PSV) is 61 cm/s. The right internal car otid artery (ICA) PSV is 99 cm/s. The right ICA end-diastolic velocity (EDV) is 38 cm/s. The right IC A/CCA PSV ratio is 1.6. Grayscale and color Doppler images yield an estimate of <50% diameter reducti on from plaque in the ICA. The external carotid artery (ECA) PSV is 106 cm/s. There is antegrade flow in the right vertebral artery. LEFT: The left CCA PSV is 80 cm/s. The left ICA PSV is 109 cm/s. The left ICA EDV is 39 cm/s. The left ICA/ CCA PSV ratio is 1.4. Grayscale and color Doppler images yield an estimate of <50% diameter reduction from plaque in the ICA. The ECA PSV is 104 cm/s. There is antegrade flow in the left vertebral arter y. IMPRESSION: 1. <50% stenosis in the right internal carotid artery. 2. <50% stenosis in the left internal carotid artery. Reviewed, dictated and finalized at location A.
--- NOTE | ~2025-02-08 | CT_ITS ---
EXAMINATION: CT brain wo con, CT facial bones wo con DATE: 02/08/2025 10:17 INDICATION: Fall with head/facial injury including laceration to the nose and lip TECHNIQUE: 1. Computed tomography (CT) of the head was performed without intravenous contrast. Sagittal and prtaik nal reconstructions were performed. The mA was adjusted according to patient size. Iterative reconstr uction technique was employed. The dose-length product was 605.33 mGy-cm. 2. CT of the facial bones was performed without intravenous contrast. Sagittal and coronal reconstruc tions were performed. Automated exposure control and iterative reconstruction technique were employed . The dose length product was 517.05 mGy-cm. COMPARISON: None FINDINGS: Head CT: No calvarial fracture. Acute intracranial hemorrhage, acute infarction or abnormal extra axial fluid collection. There is mild scattered white matter hypoattenuation consistent with chronic small vessel ischemic disease. Symmetric prominence of the sulci consistent with mild age-appropriate diffuse cer ebral volume loss. Ventricles are normal and symmetric. No mass/mass effect. Maxillofacial CT: No maxillofacial fractures. Specifically the mandible, nasal bones, zygomatic arches and gonzalez of the orbits and paranasal sinuses are all intact. There is mild leftward bowing of the nasal septum which parallels the contours of the turbinates with no evident fracture. Orbits are normal. Mucosal thicke mimi in the left sphenoid and bilateral ethmoid and maxillary sinuses. Mastoid air cells and middle e ar cavities are clear. Advanced into disease with numerous missing teeth and dental caries of varying degrees involving the remaining teeth. IMPRESSION: 1. No calvarial or maxillofacial fractures. 2. Mild age-related changes in the brain. No acute intracranial process. 3. Extensive advanced dental disease. Reviewed, dictated and finalized at location A. IMPRESSION: 1. No calvarial or maxillofacial fractures. 2. Mild age-related changes in the brain. No acute intracranial process. 3. Extensive advanced dental disease.
--- NOTE | ~2025-02-08 | CT_ITS ---
Clinical Indication: Elevated d-dimer CT Scan of the Chest with Contrast: Technique: Contiguous sections were acquired throughout the chest after intravenous administration of 100 cc of Omnipaque 350. Dose reduction technique was used on this scan by utilizing automated expos ure control and iterative reconstruction technique. The dose-length product (DLP) was 704.22 mGy-cm. Findings: There is no evidence of any significant mediastinal, hilar or axillary lymphadenopathy. There is no f illing defect in the pulmonary arterial tree to suggest pulmonary embolus. There is no evidence of ao rtic dissection or aneurysm. There is no evidence of pleural or pericardial effusion. The lungs are clear. No pulmonary nodules or infiltrates are noted. Images through the upper abdomen reveal no abnormalities. Impression: No evidence of pulmonary embolus, aortic dissection, or aortic aneurysm. Clear lungs. Reviewed, dictated and finalized at [facility]. Impression: No evidence of pulmonary embolus, aortic dissection, or aortic aneurysm. Clear lungs.
--- NOTE | ~2025-02-08 | XR_ITS ---
Portable chest x-ray Comparison: None Clinical History: Status post fall Findings: Lungs are clear, without focal consolidation or pleural effusion. Cardiomediastinal silho uette is unremarkable. Bones and soft tissues are unremarkable. Impression: Normal chest. Reviewed, dictated and finalized at location . Impression: Normal chest.
--- OUTSIDE RECORDS SUMMARY | 2025-02-08 09:41 | XMS_ITS | Data Portability ---
Author Organization [place] [facility] [employer], Main Office Address [address] [place] [address] Care Team Providers Care Stable Hand Name Role Phone ROSELYN PARRISH Primary Care Provider ROSELYN PARRISH Referring Provider Assessment Encounter Date Assessment Date Assessment LastModified by Organization Details LastModified Time 02/28/2023 02/28/2023 This note is dictated and transcribed by [employer]. [employer] Assembler variances may occur. Despite proofreading, typographical errors may occur. [email or web address] Not available 02/28/2023 09:32:38 Plan of Treatment Reminders Order Date Submit Date Provider Last Modified By Organization Details Last Modified Time Details Appointments None record ed. Lab None record ed. Referral None record ed. Procedures None record ed. Surgeries None record ed. Imaging None record ed. Medication Orders None record ed. Patient TargetsNo targets recorded. Patient InstructionsNo instructions recorded. Reason for Referral None Reported. Results Created Date Observation Date Name Description Value Unit Range Abnormal Flag Note LastModifiedBy Organization Detail LastModifiedTime 11/08/19 23 XR, foot, 3 or more view No observ ation record ed. [id number] [facility] [address], [place], [address], 11/25/2022 01:54:54 11/08/19 23 11/08/2022 XR, ankle , 3 or more view [facility] [address], [place] [address] Patien t Name: JOSÉ GARDUNO ER Access ion #: [id number] Sex: F : 1974 3 Locati on: IND Attend ing Physic cristofer: Orderi ng Physic cristofer: OVIDIO DONNELLY Exam Date: 023 11:04 AM Exam Name: XR ANKLE RT 3V+ Admitt ing Diagno sis(es ): RADIOL OGY REPORT - FINAL EXAM: XR ANKLE RT 3V+ HISTOR Y: rt ankle sprain /possi ble old fx 47-yea r-old female with right distal fibula r expans ile lesion , no histor y of fractu re. COMPAR LIANA: None availa ble. TECHNI QUE: Three views of the right ankle were perfor med. FINDIN GS: No acute fractu re is identi fied about the right ankle. There is cortic al irregu larity and bony expans ion involv ing the distal fibula r metaph yseal- diaphy seal juncti on with narrow zone of transi tion and smooth cortic al margin s. The mortis e is intact . There are calcif icatio ns betwee n the distal fibula and talus. There is a planta r calcan eal bone spur Page 1 of 2 [facility] t Name: JOSÉ GARDUNO ER Access ion #: [id number] Sex: F : 1974 3 Exam Date: 023 11:04 AM Exam Name: XR ANKLE RT 3V+ Admitt ing Diagno sis(es ): measur ing 9 mm length . There is a tiny Achill es insert ion enthes ophyte . Os perone um is incide ntally noted. There is a small bone spur projec ting dorsal ly from the talar neck. IMPRES BENOIT: 1. No acute fractu re of the right ankle. 2. Irregu larity and intram edulla ry expans ion of the right distal fibula r metaph yseal- diaphy seal juncti on is likely relate d to old fractu re, less likely sequel a of simple bone cyst or aneury smal bone cyst with subseq uent pathol ogic fractu re and healin g. Findin gs were discus sed with Dr. Berenice hutson on 2022 at 11:10 a.m. [employer]. Create d and electr onical ly signed by: Marvin morgan MD Signed Date: 11:13 AM (CT) Dictat ed by: Marvin morgan MD DD: 11:13 AM (CT) DT: 11:13 AM (CT) Page 2 of 2 [id number] [facility] (Imaging) [address] [facility], [place], [address], 11/25/2022 01:54:54 11/10/19 23 11/10/2022 NM, bone scan, limit ed [facility] [address] [facility] [place] [address] Patien t Name: JOSÉ GARDUNO ER Access ion #: [id number] Sex: F : 1974 3 1 Locati on: RAD Attend ing Physic cristofer: OVIDIO DONNELLY Orderi ng Physic cristofer: OVIDIO DONNELLY Exam Date: 9:44 AM Exam Name: NM BONE / JOINT LIMITE D Admitt ing Diagno sis(es ): RADIOL OGY REPORT - FINAL EXAM: NM BONE / JOINT LIMITE D HISTOR Y: aneury smal bone cyst, right ankle and foot 47-yea r-old female with right distal fibula r expans ile lesion , bone cyst versus old posttr aumati c deform ity; histor y of multip le right ankle injuri es and right foot pain. COMPAR LIANA: Radiog raphs dated 2022. TECHNI QUE: 25 mCi Techne tium-9 9m MDP were admini stered intrav enousl y, follow ed by planar delaye d scinti graphi c images of the bilate ral feet and ankles . FINDIN GS: There is mild increa sed radiot racer uptake in the right distal fibula . There is mild focal increa sed uptake in the left distal fibula . There is focal increa sed uptake in the right distal tibia. There is increa sed radiot racer Page 1 of 2 [facility] Patien t Name: JOSÉ GARDUNO ER Access ion #: [id number] Sex: F : 1974 3 1 Exam Date: 023 9:44 AM Exam Name: NM BONE / JOINT LIMITE D Admitt ing Diagno sis(es ): uptake in the right midfoo t, greate r latera lly. IMPRES BENOIT: 1. Mild increa sed radiot racer uptake in the right distal fibula , likely reflec tive of healin g fractu re or old bone cyst, less uptake than expect ed for infect ion or neopla sm. 2. Increa sed uptake in the right distal tibia and midfoo t may be due to degene rative change s or posttr aumati c etiolo gy. There are no findin gs on recent radiog raphs of the right foot and ankle to correl ate with this uptake . This appear ance may be due to an early arthro pathic proces s that is radiol ogical ly occult at this time. Create d and electr onical ly signed by: Marvin morgan MD Signed Date: 023 1:25 PM (CT) Dictat ed by: Marvin morgan MD DD: 023 1:25 PM (CT) DT: 023 1:25 PM (CT) Page 2 of 2 [id number] [facility] (Imaging) [address] [place], [address], 11/25/2022 01:54:54 Result Notes None recorded. Problems Name Problem SNOMED Code Status Onset Date Resolution Date Notes Provider Name and Address Organization Details Recorded Time Aneurysmal bone cyst of right ankle 5330697870002 9102 Active 2022 Not Available [facility] 3 01:54:02 Foot callus 122995923 Active 2022 Not Available [employer] 3 01:54:03 Soft tissue lesion of foot region 830160533 Active 2022 Not Available [employer] 3 01:54:03 Pain in right foot 3015443397102 07 Active 2022 Not Available [facility] 01:54:03 Fissure in skin 46982946 Active 2022 Ovidio Mcknight DPM [address], [place], [address] , [employer] 15:43:57 Diabetic peripheral neuropathy 833337043 Active 2022 Ovidio Mcknight DPM [address], [place], [address] , [employer] 09:48:28 Problem Notes None recorded. Procedures Surgical History Date Name Laterality Status Provider Name and Address Organization Details Recorded Time 06/06/2023 Callus Debridement , One completed Ovidio Mcknight DPM [address], [place], [address], [employer] [facility] [employer] 06/06/2023 14:37:32 02/28/2023 Callus Debridement , One completed Ovidio Mcknight DPM [address], [place], [address], [employer] 02/28/2023 09:48:12 11/29/2022 Callus Debridement , One completed Ovidio Mcknight DPM [address], [place], [address], [employer] 11/29/2022 15:43:47 Imaging Results Imaging Date Name Status LastModified by [facility] Details LastModified Time 11/10/2022 NM, bone scan, limited completed [id number] [facility] (Imaging) [address], [place], [address], 11/25/2022 01:54:54 11/08/2022 XR, foot, 3 or more view completed [id number] [facility] [address], [place], [address], 11/25/2022 01:54:54 11/08/2022 XR, ankle, 3 or more view completed [id number] [facility] (Imaging) [address] [facility], [place], [address], 11/25/2022 01:54:54 Procedure Notes None recorded. Medical Equipment None Reported. Allergies No known drug allergies Medications Name Sig Start Date Stop Date Status Note LastModified by Organization Details LastModified Time buspirone 5 mg tablet TAKE 1 TABLET BY MOUTH TWICE DAILY FOR ANXIETY active Not Available Not Available No t Available gabapentin 600 mg tablet TAKE 1 TABLET BY MOUTH THREE TIMES DAILY FOR NERVE PAIN active Not Available Not Available No t Available sertraline 100 mg tablet TAKE 2 TABLETS BY MOUTH DAILY active Not Available Not Available No t Available insulin syringe U-100 with needle 1 mL 29 gauge x 7/16 USE DIRECTED FOUR TIMES DAILY active Not Available Not Available No t Available alprazolam 0.5 mg tablet TAKE 1 TABLET BY MOUTH FOUR TIMES DAILY NEEDED FOR ANXIETY active Not Available Not Available No t Available famotidine 20 mg tablet TAKE 1 TABLET BY MOUTH DAILY active Not Available Not Available No t Available dicyclomine 20 mg tablet TAKE 1 TABLET BY MOUTH THREE TIMES DAILY active Not Available Not Available No t Available [employer] One Stop SalonTouch Ultra Test strips USE TO TEST BEFORE A MEAL AND AT BEDTIME active Not Available Not Available No t Available gabapentin 300 mg capsule TAKE 1 CAPSULE BY MOUTH EVERY MORNING AND 2 CAPSULES BY MOUTH EVERY NIGHT AT BEDTIME. active Not Available Not Available No t Available albuterol sulfate HFA 90 mcg/actuati on aerosol inhaler INHALE 1 PUFF BY MOUTH EVERY 4 HOURS NEEDED FOR SHORTNESS OF BREATH OR WHEEZING active Not Available Not Available No t Available ondansetron 4 mg disintegrat ing tablet DISSOLVE 1 TABLET ON THE TONGUE EVERY 8 HOURS NEEDED FOR NAUSEA OR VOMITING active Not Available Not Available No t Available metformin ER 500 mg tablet,exte nded release 24 hr TAKE 4 TABLETS BY MOUTH EVERY DAY active Not Available Not Available No t Available lisinopril 2.5 mg tablet TAKE 1 TABLET BY MOUTH DAILY active Not Available Not Available No t Available amoxicillin 875 mg-potassiu m clavulanate 125 mg tablet TAKE 1 TABLET BY MOUTH EVERY 12 HOURS FOR 10 DAYS 11/08 completed Not Available Not Available Not Available Tylenol Extra Strength 500 mg tablet Take 2 tablets every 6 hours by oral route as needed for 30 days. active Not Available Not Available No t Available rosuvastati n 40 mg tablet TAKE 1 TABLET BY MOUTH DAILY active Not Available Not Available No t Available cholecalcif julio c (vitamin D3) 1,250 mcg (50,000 unit) capsule TAKE 1 CAPSULE BY MOUTH WEEKLY active Not Available Not Available No t Available Jardiance 25 mg tablet TAKE 1 TABLET BY MOUTH DAILY active Not Available Not Available No t Available Trulicity 1.5 mg/0.5 mL subcutaneou s pen injector ADMINISTE R 1.5 MG UNDER THE SKIN WEEKLY active Not Available Not Available No t Available Trulicity 0.75 mg/0.5 mL subcutaneou s pen injector ADMINISTE R 0.75 MG UNDER THE SKIN WEEKLY active Not Available Not Available No t Available [employer] Ultra2 Meter USE DIRECTED active Not Available Not Available No t Available Trulicity 3 mg/0.5 mL subcutaneou s pen injector ADMINISTE R 3 MG UNDER THE SKIN WEEKLY active Not Available Not Available No t Available Paxlovid 300 mg (150 mg x 2)-100 mg tablets in a dose pack FOLLOW PACKAGE DIRECTION S active Not Available Not Available No t Available Vitals Date Recorded Body mass index (BMI) Body height Oxygen saturation Oxygen saturation in Arterial blood by Pulse oximetry Heart rate Respiratory rate Body weight Systolic blood pressure Diastolic blood pressure Provider Name and Address Organization Details Last Updated DateTime 3 32.6 kg/m2 162.56 cm 98 % 98 % 81 /min 18 /min 54875.5 5 g 138 mm[Hg] 70 mm[Hg] Not Available [facility] 3 01:53:30 Date Recorded Body height Body mass index (BMI) Body weight Heart rate Respiratory rate Body temperature Oxygen saturation Oxygen saturation in Arterial blood by Pulse oximetry Systolic blood pressure Diastolic blood pressure Provider Name and Address Organization Details Last Updated DateTime 3 162.56 cm 32.6 kg/m2 73247.5 5 g 80 /min 16 /min 97.4 [degF] 98 % 98 % 138 mm[Hg] 70 mm[Hg] France Orta [place] [facility] 3 15:12:18 Date Recorded Body height Body mass index (BMI) Body weight Heart rate Respiratory rate Oxygen saturation Oxygen saturation in Arterial blood by Pulse oximetry Systolic blood pressure Diastolic blood pressure Provider Name and Address Organization Details Last Updated DateTime 3 162.56 cm 32.6 kg/m2 13944.5 5 g 87 /min 14 /min 98 % 98 % 132 mm[Hg] 70 mm[Hg] Lexus Cote [place] [facility] [employer] 3 09:24:33 Date Recorded Body height Body mass index (BMI) Body weight Heart rate Respiratory rate Body temperature Oxygen saturation Oxygen saturation in Arterial blood by Pulse oximetry Systolic blood pressure Diastolic blood pressure Provider Name and Address Organization Details Last Updated DateTime 3 162.56 cm 32.6 kg/m2 84289.5 5 g 76 /min 16 /min 97.6 [degF] 97 % 97 % 120 mm[Hg] 80 mm[Hg] France You [place] - [facility] [employer] [facility] 3 11:36:54 Social History Question Answer Notes LastModified by [employer] Details LastModified Time Tobacco Smoking Status Former Smoker Not Available [facility] 11/25/2022 01:52:43 If You Are , What Was Your Level Of Alcohol Consumption Prior To ? None [id number] Information not available 11/25/2022 What Is Your Level Of Caffeine Consumption? Occasional [id number] Information not available 11/25/2022 What Was The Date Of Your Most Recent Tobacco Screening? 11/08/2022 [id number] Information not available 11/25/2022 Have You Ever Been Counseled For Unhealthy Alcohol Use? No [id number] Information not available 11/25/2022 Has Tobacco Cessation Counseling Been Provided? No [id number] Information not available 11/25/2022 Sex: Unknown Functional Status Question Answer Note LastModified by [employer] Details LastModified Time Do you use any illicit or recreational drugs? No [id number] Information not available 11/25/2022 Do you or have you ever used any other forms of tobacco or nicotine? No [id number] Information not available 11/25/2022 What is your level of alcohol consumption? Occasional [id number] Information not available 11/25/2022 Mental Status None recorded. Family History Relationship Description Onset Age of this Age Resolved Age Notes LastModified by Organization Details LastModified Time Unspecified Relation Diabetes mellitus [id number] Not available 11/25/2022 01:53:06 Unspecified Relation Family history of stroke [id number] Not available 11/25/2022 01:53:06 Unspecified Relation Arthritis [id number] Not available 11/25/2022 01:53:07 Medical History Condition Response NEUROPATHY Y DIABETES, TYPE Y ARTHRITIS Y OBESITY Y HIGH CHOLESTEROL / HYPERLIPIDEMIA Y Gynecological HistoryNo gynecological history recorded. Obstetrics History GPAL:G 0 P 0 0 0 0 Past Encounters Encounter ID Performer Location Encounter Start Date Encounter Closed Date Diagnosis/Indication Diagnosis SNOMED-CT Code Diagnosis ICD10 Code Diagnosis Note [id number] Ovidio Mcknight DPM [facility] Podiatry [place] [address] [place] [address] 11/08/2022 00:00:00 11/08/2022 12:55:02 [id number] Ovidio Mcknight DPM [facility] Podiatry [place] [address] [place] [address] 11/29/2022 15:02:00 11/30/2022 14:42:26 Aneurysmal bone cyst of right ankle 5708212460 6574800 M85.571 reviewed testingFol low-up x-rays in 3 months Fissure in skin 73968054 R23.4 debrided without incidentof floading to prevent recurrentR ecommend use of lotion dailyAnd recommend use of pumice stoneFollo w-up 2-3months Foot callus 764621010 L8 4 debrided without incidentas above [id number] Ovidio Mcknight DPM [facility] Podiatry [place] [address] [place] [address] 02/28/2023 09:10:37 02/28/2023 10:10:01 Foot callus 152700408 L84 right foot sub 5th metatarsal headcontin ue topical urea lotion and pumice stone daily to prevent builduprec ommend diabetic shoes and inserts Diabetic p eripheral neuropathy 238098011 E11.40 Patient educated on neuropathy , diabetes, diabetic diet, and daily foot exams. Patient is to check feet daily for new wounds, blisters, redness to prevent infection and ulceration s to the feet. Patient will return to clinic in 3 months for diabetic foot workup.Rx diabetic shoes and inserts [id number] Ovidio Mcknight DPM [facility] Pod[facility] [place] [address] [facility] [address] [place] [address] 06/06/2023 11:21:25 06/20/2023 11:48:39 Diabetic peripheral neuropathy 248144177 E11.40 Patient educated on neuropathy , diabetes, diabetic diet, and daily foot exams. Patient is to check feet daily for new wounds, blisters, redness to prevent infection and ulceration s to the feet. Patient will return to clinic in 3 months for diabetic foot workup.Rx diabetic shoes and inserts Foot callus 176624409 L8 4 right foot sub 5th metatarsal headcontin ue topical urea lotion and pumice stone daily to prevent build uprecommen d diabetic shoes and inserts Pain in right foot 52920 45671 34918 M79.671 recommend supportive shoe gear Health Concerns Section Related Observation LastModified by Organization Detai ls LastModified Time None Recorded Concern Status LastModified by Organization Details LastModified Time None Recorded Advance Directives Directive None Recorded Payers Encounter Date Sequence Insurance Name Policy Number Policy Neves Covered Member ID Neves Member ID Guarantor Name 11/29/2022 1 [facility] ON OR AFTER 03/26/21 (MEDICAID REPLACEMENT - HMO) Kelli Garduno [id number] Kelli Garduno 02/28/2023 1 [facility] ON OR AFTER 03/26/21 (MEDICAID REPLACEMENT - HMO) Kelli Garduno [id number] Kelli Garduno 06/06/2023 1 [facility] ON OR AFTER 03/26/21 (MEDICAID REPLACEMENT - HMO) Kelli Garduno [id number] Kelli Garduno Notes Date Note Type Note Provider Name and Address Organization Details Recorded Time 11/29/2022 text/html . Patient is a 47-year-old female who returns the office for follow-up on bone scan of the right ankle. Patient was found to have minimal uptake and after speaking to Radiology they are not concerned for neoplasm. We will continue to follow up postoperative x-rays in 3 months. Patient denies any pain to the area. Patient states she does have pain to the a large callus and fissure of the plantar lateral foot. Patient denies any signs of infection. Patient denies any other pedal complaints. Ovidio Mcknight DPM [address], [place], [address], [employer] 11/29/2022 15:55:56 02/28/2023 text/html . Patient is a 47-year-old female diabetic who returns the office for follow-up on routine foot care. Patient denies any new problems. Patient states that the callus under the sub 5th metatarsal head has been becoming larger. Patient states she does use a pumice stone to the area and has some bleeding under the callus. Patient still denies any new wounds or signs of infection. Patient states she continues have numbness and tingling of the feet. Patient denies any other issues. Ovidio Mcknight DPM [address], [place], [address], [employer] 02/28/2023 09:49:27 06/06/2023 text/html . Patient is a 47-year-old female diabetic who returns the office for follow-up on a painful callus to the sub right foot. Patient has a significant callus deformity to the right 5th plantar met head. Patient did obtain diabetic shoes and inserts. We today remove the inserts and removed pressure offloading under the 5th metatarsal head we will see if this will help to offload the area to prevent callusing as she is high risk for developing a wound. Patient understands she is to check her foot daily and monitor for any infection or wounds if this were to present seek medical attention immediately. Ovidio Mcknight DPM [address], [place], [address], [employer] 06/17/2023 12:25:41 OBGyn Episode No OBEpisode recorded.
--- OUTSIDE RECORDS SUMMARY | 2025-02-08 09:41 | XMS_ITS | Continuity of Care Document ---
Author Organization [facility] Address [address] [place] [address] [facility] [address] [place] [address] Phone Care Team Providers Care Advertising Production Manager Name Role Phone Sondra Ryne Unavailable Unavailable Procedures Procedure Date Office/outpatient Visit, [facility] Advance Directives Directive Yes / No Effective Date File Name No Information Encounters Encounter Description Practice Location Reason(s) For Visit Diagnoses Date Provider Providers Copied on Encounter Office/outpa tient Visit, [facility], [address], [place], [place], [id number], [place] tel:[phone] [facility] No Information 2-[address] Sondra Zuñigahil. [address] [facility] [address], [address], [place]. tel:[phone] Referring Provider: Albert Back MD , [address] [place], [address]. tel:[phone] Family History Family Member Type Diagnosis Age At Onset No Information Payers Payer name Insurance type Covered republican ID Authoriza tion(s) Medicaid [facility] [id number] Social History Type Description Quantity Date Captured [...]
[2025-02-08 09:54] LABS: Glucose Point of Care 374 mg/dl (65-105)
--- NOTE | 2025-02-08 10:00 | ECG_ITS ---
Test Date: 2025-02-08 10:58:34 Measurements Intervals [place] Rate: 72 P: 53 AR: 193 QRS: 31 QRSD: 97 T: 53 QT: 410 QTc: 449 Interpretive Statements SINUS RHYTHM No previous ECG available for comparison Electronically Signed On 02-08-2025 11:28:06 CDT by Bozena Cardona M.D.
--- NOTE | 2025-02-08 10:07 | ED_ITS ---
HPI - General Adult General Chief complaint: Syncope Stated complaint: syncope this morning Time Seen by Provider: 02/08/25 09:43 History of Present Illness HPI narrative: Kelli Garduno is a 49-year-old female with past medical history of diabetes type 2, hyperlipidemia anxiety he presents today after a syncopal episode. Significant other is at the bedside states that they were sitting at the kitchen table drinking coffee when she went blank and fell over onto the floor striking her head and face first. Has not states that he then rolled her onto her back and she was out for few seconds and then came to and she was able to get and ambulate after fall. Patient reports that she has been feeling well up until this denies having any symptoms prior to the episode she states it came on and on she never had this done before. She is alert and oriented x4 although it took her a little time to remember what year was within she did get a correct. She denies headache, vision changes, numbness, tingling. She reports of having some neck pain feels her neck is stiff. Denies fevers chills abdominal pain nausea vomiting. She denies any shortness of breath chest pain. Related Data Home Medications ?Medication ?Instructions ?Recorded ?Confirmed ?Last Taken ?Type famotidine 20 mg tablet 20 mg PO HS 06/13/24 02/08/25 Unknown History Allergies Allergy/AdvReac Type Severity Reaction Status Date / Time codeine AdvReac Mild Nausea Verified 07/03/24 09:03 GLP-1 AdvReac Severe gastroperes Uncoded 07/03/24 09:03 is Review of Systems 2 Review of Systems: All systems reviewed & are unremarkable except as noted in HPI and below PMFSH Past Medical History Medical History Screening for breast cancer Fibular abnormality BMI 34.0-34.9,adult Abrasion of knee, left Ataxia Constipation Diabetes mellitus Nausea & vomiting Diabetes mellitus Vitamin D deficiency Callus of foot Open wound of plantar aspect of foot Hypotension Anemia Weight loss Hyponatremia Neuropathy Hives Anxiety Essential (primary) hypertension Hyperlipidemia Type 2 diabetes mellitus without complications Surgical History Surgical History H/O endoscopy No pertinent past surgical history Family History Family History Grandparent Cerebrovascular accident Family history of lung cancer Diabetes mellitus Father No problems noted. Mother COPD (chronic obstructive pulmonary disease) Emphysema lung Sibling No problems noted. Social History Social History Social History: Patient lives with her Laz who will be her surrogate. She has 2 boys and wishes to be a full code at this time. Patient also has 2 cats at home Smoking packs per day: 2 Smoking cigarettes per day: 40.0 Years smoked: 30 Smoking pack-years: 60.00 Smoking status: Former smoker Tobacco type: cigarettes Second hand tobacco smoke exposure: No Additional smoking assessment comments: Quit about 12 years ago Alcohol intake: never Substance use: current Substance use type: marijuana Other substance usage details: smoking, 4x per week Last use: 02/07/25 Do You Feel Safe in your Home?: Yes Lack of Transportation: No Lack of Food: Never True Current Housing: I Have Housing Concerned About Future Housing: No Difficulty Paying Gas/Electric Bills: No Difficulty Paying for Meds: No Currently Unemployed: No Education: High School Diploma/GED Difficulty w/ Childcare or Family Care: Decline to Answer Living arrangements: with family Additional living arrangements comments: Occupation/Education: unemployed Additional occupation/education comments: House Gender identity (if verbalized by the patient): Female Sexual Orientation (if Verbalized by the Patient): Straight or Heterosexual Spiritual care concerns: No Agree to blood products: Yes Exam 2 Narrative: GENERAL: well-nourished, and in no acute distress. HEAD: Normocephalic, small laceration to the right side of her lip, abrasion to the bridge of her nose, abrasion to the top of her head-no active bleeding noted EYES: PERRLA and EOMI no nystagmus noted ENT: Nares clear, no rhinorrhea or epistaxis. Mucous membranes moist. Oropharynx without tonsillar hypertrophy exudate or other lesions. NECK: No adenopathy or masses. No carotid bruits or JVD CHEST: Clear to auscultation. No respiratory distress. No wheezes rales or rhonchi HEART: Regular rate and rhythm. No murmur heard. Normal peripheral pulses. ABDOMEN: Soft, nontender, nondistended, normal active bowel sounds. EXTREMITIES: Normal range of motion. No edema. SKIN: Warm, dry, no rash. NEURO: No focal deficits. Alert and oriented x3. PSYCH: Normal mood and affect. Course Vital Signs Vital signs: Vital Signs Temperature 36.6 C 02/08/25 09:45 Pulse Rate 70 02/08/25 09:45 Respiratory Rate 14 02/08/25 09:45 Blood Pressure 131/70 02/08/25 09:45 Pulse Oximetry 100 02/08/25 09:45 Oxygen Delivery Room Air 02/08/25 09:45 Temperature 36.6 C 02/08/25 09:45 Pulse Rate 62 02/08/25 16:00 Respiratory Rate 18 02/08/25 14:11 Blood Pressure 140/80 02/08/25 14:11 Pulse Oximetry 98 02/08/25 14:11 Oxygen Delivery Room Air 02/08/25 09:45 Medical Decision Making MDM Narrative Medical decision making narrative: 49 year old female with a history of diabetes who presents today after syncopal episode. She denies any symptoms prior to that episode and states that she has been feeling well up until this point. Exam is consistent with obvious facial trauma from the fall her states that she fell on her face from a chair 1st and was out for few seconds. She denies having any symptoms at this time other than having some neck pain Patient is oriented x4 no focal neural deficits noted on exam Lung sounds clear throughout sating 100% on room air respirations even unlabored Bowel sounds present abdomen soft denies any nausea no pain with palpation No cervical, thoracic, lumbar spinal tenderness with palpation no obvious deformity or noted rashes Patient denies having any recent fevers or chills no urinary or bowel symptoms Concern for cardiac arrhythmia, pulmonary embolism, electrolyte imbalance, dehydration, head bleed Plans to check labs and imaging of face head and cervical spine and chest XR CBC-hemoglobin 9.7, hematocrit 34.3 no leukocytosis CMP-unremarkable Troponin 1-negative Magnesium-2.5 D-dimer-0.54 - checking CTA PE protocol Lactate-1.4 Bedside glucose-374 EKG- UA-positive for protein glucose and blood Orthostatics-negative Chest XR-no acute finding CT brain/ face-1. No calvarial or maxillofacial fractures. 2. Mild age-related changes in the brain. No acute intracranial process. 3. Extensive advanced dental disease. CT cervical spine-1. Mild cervical uncovertebral and facet osteoarthritis and straightening of the normal cervical lordosis which could be positional or due to muscle spasm. Otherwise unremarkable cervical spine CT with no acute fracture. CTA PE protocol - No evidence of pulmonary embolus, aortic dissection, or aortic aneurysm. Clear lungs. Patient re-evaluated and states that she feels better denies any other feelings of dizziness or near syncope, patient updated on that labs and imaging finding. Discussed case with hospitalist Greta who accepts patient for observation overnight. Patient accepted for admission here Medical Records Medical records reviewed: Yes I reviewed the external patient's medical records. Vital Signs Vital Signs: Vital Signs Temperature 36.6 C 02/08/25 09:45 Pulse Rate 70 02/08/25 09:45 Respiratory Rate 14 02/08/25 09:45 Blood Pressure 131/70 02/08/25 09:45 Pulse Oximetry 100 02/08/25 09:45 Oxygen Delivery Room Air 02/08/25 09:45 Temperature 36.6 C 02/08/25 09:45 Pulse Rate 62 02/08/25 16:00 Respiratory Rate 18 02/08/25 14:11 Blood Pressure 140/80 02/08/25 14:11 Pulse Oximetry 98 02/08/25 14:11 Oxygen Delivery Room Air 02/08/25 09:45 Vitals reviewed by me Lab Data Lab results reviewed: Yes I reviewed the patient's lab results. 02/08/25 11:10 02/08/25 11:10 Labs: Lab Results 02/08/25 02/08/25 02/08/25 Range/Units 09:52 11:10 11:33 WBC 7.1 (4.5-10.0) K/mm3 RBC 4.41 (4.2-5.4) M/mm3 Hgb 9.7 L (12.0-15.0) g/dL Hct 34.3 L (37.0-47.0) % MCV 77.8 L (80-100) fl MCH 22.0 L (26-34) pg MCHC 28.3 L (32-36) g/dl RDW 18.6 H (11.5-14.5) % Plt Count 235 (150-375) k/mm3 MPV 10.2 (7.4-10.4) fl Immature Gran % (Auto) 0.3 (0-0.5) % Neut % (Auto) 73.5 H (45.5-73.1) % Lymph % (Auto) 15.8 L (18.3-44.2) % [place] % (Auto) 7.0 (2.6-8.5) % Eos % (Auto) 2.8 (0-4.4) % Baso % (Auto) 0.6 (0.2-1.2) % Lymph # (Auto) 1.12 (0.9-3.2) K/mm3 [place] # (Auto) 0.5 (0.1-0.6) K/mm3 Eos # (Auto) 0.2 (0-0.3) K/mm3 Baso # (Auto) 0.0 (0.0-0.1) K/mm3 Abs Immat Gran (auto) 0.02 (0.00-0.031) K/mm3 Absolute Neuts (auto) 5.2 (1.3-6.7) K/mm3 Absolute Nucleated RBC 0.000 (0.0-0.012) K/mm3 Band Neutrophils % Not Reportable Nucleated RBC % 0.0 (0.0-0.2) % Platelet Estimate Adequate (Adequate) Hypochromasia 1+ Poikilocytosis 1+ Anisocytosis 1+ Schistocytes None seen PT 13.4 (11.1-14.7) Seconds INR 1.0 APTT 27.6 (22.3-36.8) Seconds D-Dimer 0.54 H (<0.48) ug/mL Sodium 139 (137-145) mmol/L Potassium 3.8 (3.4-5.0) mmol/L Chloride 106 (98-107) mmol/L Carbon Dioxide 26 (22-30) mmol/L Anion Gap 7 (4-12) mmol/L BUN 12 (7-17) mg/dL Creatinine 0.77 (0.7-1.0) mg/dL Estim Creat Clear Calc 82 ml/min Estimated GFR > 60 (59 - ) Glucose 376 H (65-110) mg/dL POC Capillary Glucose 374 H (65-105) mg/dl Lactic Acid 1.4 (0.7-2.0) mmol/L Calcium 8.9 (8.4-10.2) mg/dL Magnesium 2.5 H (1.6-2.3) mg/dL Total Bilirubin 0.4 (0.2-1.3) mg/dL AST 59 H (14-36) U/L ALT 62 H (6-35) U/L Alkaline Phosphatase 71 (38-126) U/L Troponin I < 0.012 (0.000-0.034) ng/mL Total Protein 7.0 (6.3-8.2) g/dL Albumin 4.2 (3.5-5.1) g/dL Urine Color Yellow (Yellow) Urine Appearance Clear (Clear) Urine pH 6.5 (5.0-9.0) Ur Specific [place] 1.037 H (1.001-1.035) Urine Protein 1+ H (Negative) mg/dL Urine Glucose (UA) 3+ H (Negative) mg/dL Urine Ketones Negative (Negative) mg/dL Ur Blood (Man) 2+ H (Negative) Urine Nitrate Negative (Negative) Urine Bilirubin Negative (Negative) Urine Urobilinogen 0.2 (<2.0) mg/dL Leukocyte Esterase Rfl Negative (Negative) BALJIT/UL Urine RBC 3-5 H (0-2) /hpf Urine WBC 0-5 (0-3) /hpf Ur Squamous Epith Cells None seen (Few) /hpf Urine Bacteria None seen /hpf Urine Casts 0-2 POC Urine HCG, Qual (Negative) 02/08/25 Range/Units 11:50 WBC (4.5-10.0) K/mm3 RBC (4.2-5.4) M/mm3 Hgb (12.0-15.0) g/dL Hct (37.0-47.0) % MCV (80-100) fl MCH (26-34) pg MCHC (32-36) g/dl RDW (11.5-14.5) % Plt Count (150-375) k/mm3 MPV (7.4-10.4) fl Immature Gran % (Auto) (0-0.5) % Neut % (Auto) (45.5-73.1) % Lymph % (Auto) (18.3-44.2) % [place] % (Auto) (2.6-8.5) % Eos % (Auto) (0-4.4) % Baso % (Auto) (0.2-1.2) % Lymph # (Auto) (0.9-3.2) K/mm3 [place] # (Auto) (0.1-0.6) K/mm3 Eos # (Auto) (0-0.3) K/mm3 Baso # (Auto) (0.0-0.1) K/mm3 Abs Immat Gran (auto) (0.00-0.031) K/mm3 Absolute Neuts (auto) (1.3-6.7) K/mm3 Absolute Nucleated RBC (0.0-0.012) K/mm3 Band Neutrophils % Nucleated RBC % (0.0-0.2) % Platelet Estimate (Adequate) Hypochromasia Poikilocytosis Anisocytosis Schistocytes PT (11.1-14.7) Seconds INR APTT (22.3-36.8) Seconds D-Dimer (<0.48) ug/mL Sodium (137-145) mmol/L Potassium (3.4-5.0) mmol/L Chloride (98-107) mmol/L Carbon Dioxide (22-30) mmol/L Anion Gap (4-12) mmol/L BUN (7-17) mg/dL Creatinine (0.7-1.0) mg/dL Estim Creat Clear Calc ml/min Estimated GFR (59 - ) Glucose (65-110) mg/dL POC Capillary Glucose (65-105) mg/dl Lactic Acid (0.7-2.0) mmol/L Calcium (8.4-10.2) mg/dL Magnesium (1.6-2.3) mg/dL Total Bilirubin (0.2-1.3) mg/dL AST (14-36) U/L ALT (6-35) U/L Alkaline Phosphatase (38-126) U/L Troponin I (0.000-0.034) ng/mL Total Protein (6.3-8.2) g/dL Albumin (3.5-5.1) g/dL Urine Color (Yellow) Urine Appearance (Clear) Urine pH (5.0-9.0) Ur Specific [place] (1.001-1.035) Urine Protein (Negative) mg/dL Urine Glucose (UA) (Negative) mg/dL Urine Ketones (Negative) mg/dL Ur Blood (Man) (Negative) Urine Nitrate (Negative) Urine Bilirubin (Negative) Urine Urobilinogen (<2.0) mg/dL Leukocyte Esterase Rfl (Negative) BALJIT/UL Urine RBC (0-2) /hpf Urine WBC (0-3) /hpf Ur Squamous Epith Cells (Few) /hpf Urine Bacteria /hpf Urine Casts POC Urine HCG, Qual Negative (Negative) Imaging Data Radiologist's impression: Impressions Face CT 02/08/25 10:33 IMPRESSION: 1. No calvarial or maxillofacial fractures. 2. Mild age-related changes in the brain. No acute intracranial process. 3. Extensive advanced dental disease. Head CT 02/08/25 10:33 IMPRESSION: 1. No calvarial or maxillofacial fractures. 2. Mild age-related changes in the brain. No acute intracranial process. 3. Extensive advanced dental disease. Chest X-Ray 02/08/25 10:34 Impression: Normal chest. Cervical Spine CT 02/08/25 10:44 IMPRESSION: 1. Mild cervical uncovertebral and facet osteoarthritis and straightening of the normal cervical lordosis which could be positional or due to muscle spasm. Otherwise unremarkable cervical spine CT with no acute fracture. Chest CTA 02/08/25 12:56 Impression: No evidence of pulmonary embolus, aortic dissection, or aortic aneurysm. Clear lungs. ECG Data EKG #1: ECG completion date: 02/08/25 ECG completion time: 10:58 Prior ECG tracings: not available for review Interpretation: Rate 72 [place] 193 QRSd 97 QT 410 QTc 449 --[place]-- P 53 QRS 31 T 53 SINUS RHYTHM No previous ECG available for comparison Discharge Plan Discharge Clinical Impression: Syncope Qualifiers: Syncope type: unspecified Qualified Code(s): R55 - Syncope and collapse Abrasion of face Qualifiers: Encounter type: initial encounter Qualified Code(s): S00.81XA - Abrasion of other part of head, initial encounter Patient Disposition: Still a Patient Condition: Stable Time of Disposition: 15:00
--- OUTSIDE RECORDS SUMMARY | 2025-02-08 10:13 | XMS_ITS | Continuity of Care Document ---
Author Organization [facility] Address [address] [place] [address] [facility] [address] [place] [address] Phone Care Team Providers Care Song Lyricist Name Role Phone Sondra Ryne Unavailable Unavailable Procedures Procedure Date Office/outpatient Visit, [facility] Advance Directives Directive Yes / No Effective Date File Name No Information Encounters Encounter Description Practice Location Reason(s) For Visit Diagnoses Date Provider Providers Copied on Encounter Office/outpa tient Visit, [facility], [address], [place], [place], [id number], [place] tel:[phone] [facility] No Information 2-201 0 Sondra Zuñigahil. [address] [facility] [address], [place], [address], [place]. tel:[phone] Referring Provider: Albert Back MD , [address] [place], [address]. tel:[phone] Family History Family Member Type Diagnosis Age At Onset No Information Payers Payer name Insurance type Covered alliance party ID Authoriza tion(s) Medicaid [facility] [id number] Social History Type Description Quantity Date Captured [...]
[2025-02-08] MEDS: SODIUM CHLORIDE 0.9% IV 1,000 ML 999 ML IV CONT (11:16)
[2025-02-08 11:18] LABS: Basophils Percent Auto 0.6 % (0.2-1.2); Eosinophils Absolute Auto 0.2 K/mm3 (0-0.3); Eosinophils Percent Auto 2.8 % (0-4.4); Hematocrit 34.3 % (37.0-47.0); Hemoglobin 9.7 g/dL (12.0-15.0); Immature Granulocyte Absolute 0.02 K/mm3 (0.00-0.031); Immature Granulocyte Percent A 0.3 % (0-0.5); Lymphocytes Absolute Auto 1.12 K/mm3 (0.9-3.2); Lymphocytes Percent Auto 15.8 % (18.3-44.2); Mean Corpuscular HGB Conc 28.3 g/dl (32-36); Mean Corpuscular Volume 77.8 fl (80-100); Mean Platelet Volume 10.2 fl (7.4-10.4); Monocytes Absolute Auto 0.5 K/mm3 (0.1-0.6); Neutrophils Absolute Auto 5.2 K/mm3 (1.3-6.7); Neutrophils Percent Auto 73.5 % (45.5-73.1); Platelet Count Result 235 k/mm3 (150-375); Red Blood Count 4.41 M/mm3 (4.2-5.4); Red Cell Distribution Width 18.6 % (11.5-14.5); White Blood Count 7.1 K/mm3 (4.5-10.0)
[2025-02-08 11:30] LABS: Lactic Acid Reflex 1.4 mmol/L (0.7-2.0)
[2025-02-08 11:31] LABS: Alanine Aminotransferase 62 U/L (6-35); Albumin Level 4.2 g/dL (3.5-5.1); Alkaline Phosphatase 71 U/L (38-126); Anion Gap 7 mmol/L (4-12); Aspartate Amino Transferase 59 U/L (14-36); Bilirubin,Total 0.4 mg/dL (0.2-1.3); Blood Urea Nitrogen 12 mg/dL (7-17); Calcium 8.9 mg/dL (8.4-10.2); Carbon Dioxide 26 mmol/L (22-30); Chloride 106 mmol/L (98-107); Estimated CRCL calculation 82 ml/min; Estimated Glomerular Filt Rate > 60; Glucose 376 mg/dL (65-110); Magnesium 2.5 mg/dL (1.6-2.3); Potassium 3.8 mmol/L (3.4-5.0); Sodium 139 mmol/L (137-145)
[2025-02-08 11:36] LABS: Prothrombin Time 13.4 Seconds (11.1-14.7)
[2025-02-08 11:37] LABS: Partial Thromboplastin Time 27.6 Seconds (22.3-36.8)
[2025-02-08 11:42] LABS: Troponin I < 0.012 ng/mL (0.000-0.034)
[2025-02-08 11:43] LABS: D Dimer 0.54 ug/mL (<0.48)
[2025-02-08 11:44] LABS: Add Urine Microscopic? YES; Appearance Urine Clear (Clear); Bacteria Urine None Seen /hpf; Bilirubin Urine Negative (Negative); Blood Urine 2+ (Negative); Color Urine Yellow (Yellow); Glucose Urine UA 3+ mg/dL (Negative); Ketones Urine Negative (Negative); Leukocyte Esterase Ur Negative LEU/UL (Negative); Nitrate Urine Negative (Negative); Non Pathogenic Casts 0-2; Protein Urine 1+ mg/dL (Negative); Specific Grav Ur 1.037 (1.001-1.035); Squamous Epithelial Cell Urine None Seen /hpf (Few); Urobilinogen Urine 0.2 mg/dL (<2.0); WBC Urine 0-5 /hpf (0-3); pH Urine 6.5 (5.0-9.0)
[2025-02-08 12:01] LABS: Anisocytosis 1+; Hypochromasia 1+; Platelet Estimate Adequate (Adequate); Poikilocytosis 1+
[2025-02-08 12:02] LABS: Schistocytes None Seen
[2025-02-08 12:42] LABS: BEDSIDEPREGUCG Negative (Negative)
--- OUTSIDE RECORDS SUMMARY | 2025-02-08 14:11 | XMS_ITS | Continuity of Care Document ---
Author Organization [facility] Address [address] [place] [address] [facility] [address] [place] [address] Phone Care Team Providers Care Truck Driver Name Role Phone Sondra Ryne Unavailable Unavailable Procedures Procedure Date Office/outpatient Visit, [facility] Advance Directives Directive Yes / No Effective Date File Name No Information Encounters Encounter Description Practice Location Reason(s) For Visit Diagnoses Date Provider Providers Copied on Encounter Office/outpa tient Visit, [facility], [address], [place], [place], [id number], [place] tel:[phone] [facility] No Information 2-201 0 Sondra Zuñigahil. [address] [facility] [address], [address], [place]. tel:[phone] Referring Provider: Albert Back MD , [address] [place], [address]. tel:[phone] Family History Family Member Type Diagnosis Age At Onset No Information Payers Payer name Insurance type Covered republican ID Authoriza tion(s) Medicaid [facility] [id number] Social History Type Description Quantity Date Captured [...]
--- NOTE | 2025-02-08 14:34 | P.HP_ITS ---
H&P: HPI History of Present Illness Date/Time: 02/08/25 14:34 Chief Complaint: Syncope Narrative: 49-year-old female past medical history of type 2 diabetes presented to the ER on account of syncope. She that she was in her usual state of health he displayed up to about 8:30 a.m. while drinking her coffee seated when she he passed out. Addendum issued her face on the floor, otherwise denies any chest pain palpitations coughing vomiting abdominal pain diarrhea dysuria focal weakness prior to onset of symptoms. Today she was out for less than a minute under was no postictal state. ER evaluation vital signs blood pressure 140/80, pulse rate 87, respiratory rate 18, O2 sats 90%. EKG showed normal sinus rhythm low voltage. CTA chest and CT cervical spine, chest x-ray, head CT face CT unremarkable Patient admitted for further evaluation care. Review of Systems Review of Systems: All other systems reviewed and negative except as noted in history above. [facility] Past Medical History Medical History Screening for breast cancer Fibular abnormality BMI 34.0-34.9,adult Abrasion of knee, left Ataxia Constipation Diabetes mellitus Nausea & vomiting Diabetes mellitus Vitamin D deficiency Callus of foot Open wound of plantar aspect of foot Hypotension Anemia Weight loss Hyponatremia Neuropathy Hives Anxiety Essential (primary) hypertension Hyperlipidemia Type 2 diabetes mellitus without complications Surgical History Surgical History H/O endoscopy No pertinent past surgical history Family History Family History Grandparent Cerebrovascular accident Family history of lung cancer Diabetes mellitus Father No problems noted. Mother COPD (chronic obstructive pulmonary disease) Emphysema lung Sibling No problems noted. Social History Social History Social History: Patient lives with her Laz who will be her surrogate. She has 2 boys and wishes to be a full code at this time. Patient also has 2 cats at home Smoking packs per day: 2 Smoking cigarettes per day: 40.0 Years smoked: 25 Smoking pack-years: 50.00 Smoking status: Former smoker Tobacco type: cigarettes Second hand tobacco smoke exposure: No Additional smoking assessment comments: Quit about 12 years ago Alcohol intake: never Substance use: current Substance use type: marijuana Other substance usage details: smoking, 4x per week Last use: 10/07/2022 Lack of Transportation: No Lack of Food: Never True Current Housing: I Have Housing Concerned About Future Housing: No Difficulty Paying Gas/Electric Bills: No Difficulty Paying for Meds: No Currently Unemployed: No Education: High School Diploma/GED Difficulty w/ Childcare or Family Care: No Living arrangements: with family Additional living arrangements comments: Occupation/Education: unemployed Additional occupation/education comments: House Gender identity (if verbalized by the patient): Female Sexual Orientation (if Verbalized by the Patient): Straight or Heterosexual Spiritual care concerns: No Agree to blood products: Yes Meds Home Medications and Allergies Home Medications ?Medication ?Instructions ?Recorded ?Confirmed ?Type famotidine 20 mg tablet 20 mg PO HS 06/13/24 06/28/24 History tramadol 50 mg tablet 50 mg PO Q6H PRN pain #12 tabs 06/20/24 06/28/24 Rx insulin glargine U-300 conc 300 15 unit (0.05 mL) subcut DAILY #6 06/28/24 06/28/24 Rx unit/mL (3 mL) subcutaneous pen mL (Toujeo Max U-300 SoloStar) blood sugar diagnostic ([facility] ea 10/21/24 Rx Ultra Test strips) alcohol swabs (Alcohol Prep Pads) 1 pad topical 4-6XD #100 ea 11/11/24 Rx rosuvastatin 40 mg tablet 40 mg PO DAILY #90 tabs 11/11/24 Rx metformin 500 mg tablet,extended See Rx Instructions .Route 11/17/24 Rx release 24 hr .COMPLEX #360 tabs alprazolam 0.5 mg tablet 0.5 mg PO QID PRN anxiety #60 tabs 12/27/24 Rx hydroxyzine HCl 10 mg tablet See Rx Instructions .Route 01/04/25 Rx .COMPLEX #30 tabs sertraline 100 mg tablet See Rx Instructions .Route 01/09/25 Rx .COMPLEX #180 tabs lancets 30 gauge (OneTouch Delica #100 ea 01/22/25 Rx Plus Lancet) empagliflozin 25 mg tablet 25 mg PO DAILY #90 tabs 01/25/25 Rx (Jardiance) gabapentin 600 mg tablet See Rx Instructions .Route 01/28/25 Rx .COMPLEX #90 tabs Allergies Allergy/AdvReac Type Severity Reaction Status Date / Time codeine AdvReac Mild Nausea Verified 07/03/24 09:03 GLP-1 AdvReac Severe gastroperes Uncoded 07/03/24 09:03 is Vital Signs Vital Signs - 24 hr 02/08/25 09:45 02/08/25 12:43 02/08/25 12:44 Temperature 97.9 F Pulse Rate 70 78 80 Respiratory Rate 14 Blood Pressure 131/70 151/79 H 156/71 H Pulse Oximetry 100 Oxygen Delivery Room Air 02/08/25 12:45 02/08/25 14:11 Temperature Pulse Rate 79 87 Respiratory Rate 18 Blood Pressure 136/71 140/80 Pulse Oximetry 98 Oxygen Delivery Exam Narrative: General: alert and comfortable Eyes: EOMI, PERRLA ENNT External ears normal, Neck is supple, no masses, Respiratory systems: Clear to auscultation Cardiovascular S1, S2, normal rhythm, no murmur, rub, or gallop; no thrill or palpable murmurs on palpation. Gastrointestinal: soft, non-tender, and non-distended abdomen with no masses; BS present Skin: lip cut and abrasion on the methodist Musculoskeletal: no abnormality and no tenderness, normal ROM Neurologic: Alert and oriented x3, non focal Mental Status Exam: normal affect H&P: Results Labs Labs: Short CBC 02/08/25 Range/Units 11:10 WBC 7.1 (4.5-10.0) K/mm3 Hgb 9.7 L (12.0-15.0) g/dL Hct 34.3 L (37.0-47.0) % Plt Count 235 (150-375) k/mm3 BMP 02/08/25 11:10 Sodium 139 Potassium 3.8 Chloride 106 Carbon Dioxide 26 BUN 12 Creatinine 0.77 Glucose 376 H Calcium 8.9 Cardiac Enzymes 02/08/25 Range/Units 11:10 Troponin I < 0.012 (0.000-0.034) ng/mL Liver Function 02/08/25 Range/Units 11:10 Total Bilirubin 0.4 (0.2-1.3) mg/dL AST 59 H (14-36) U/L ALT 62 H (6-35) U/L Alkaline Phosphatase 71 (38-126) U/L Albumin 4.2 (3.5-5.1) g/dL Urine 02/08/25 Range/Units 11:33 Urine Color Yellow (Yellow) Urine Appearance Clear (Clear) Urine pH 6.5 (5.0-9.0) Ur Specific [place] 1.037 H (1.001-1.035) Urine Protein 1+ H (Negative) mg/dL Urine Glucose (UA) 3+ H (Negative) mg/dL Assessment and Plan Assessment and plan (1) Syncope: Code(s): R55 - Syncope and collapse Status: Acute Plan Syncope patient noted it was witnessed and no motor activities, tongue bites or loss of bowel movement EKG NSR with low voltage CTA chest, CT head unremarkable Vital signs stable and within normal limits ECHO, carotid duplex, orthostatic vital signs PT/OT Monitor on telemetry DM2 SSI with accucheks Lantus 10 units DVT prophylaxis on Sq Lovenox Full code Surrogate decision maker, kp Layne Hospitalist [facility] Advance Care Plan I have confirmed that the patient's Advanced Care Plan is present, code status is documented, or surrogate decision maker is listed in patient medical record.: Yes Medication Reconciliation I have utilized all available resources to obtain, update and review the patients current medications (includes all prescriptions, OTC, herbals, cannabis, and nutritional supplements).: Yes
--- NOTE | 2025-02-08 14:39 | ADMGEN ---
This patient, Kelli Garduno, was admitted to 2 Medical Room 254-01. Patient/family oriented to hospital policies and general routines including ID bracelet, bed and alarms, visiting hours, pain management, procedures, bathroom and other care routines, personal items, smoking policy, room service/diet, and visiting hours. Information on how to activate the Rapid Response Team has been discussed. Patient/Family are encouraged to report perceived risks to care and to ask questions if they do not understand what they are told or what they should do.
[2025-02-08 16:07] LABS: Iron 27 ug/dL (37-170)
[2025-02-08 16:17] LABS: Percent Iron Saturation 6 % (20-50)
[2025-02-08 16:44] LABS: Ferritin 4.43 ng/mL (11.1-264)
[2025-02-08 17:03] LABS: Glucose Point of Care 203 mg/dl (65-105)
[2025-02-08 21:14] LABS: Glucose Point of Care 198 mg/dl (65-105)
[2025-02-08] MEDS: KETOROLAC 15 MG/ML VIAL (*BKC) IV PUSH (21:25)
[2025-02-08] MEDS: INSULIN GLARGINE (*BKC) 100 UNITS/ML 10 UNITS SUB-Q (21:26)
[2025-02-08] MEDS: SERTRALINE HCL 50 MG TABLET 200 MG BY MOUTH (21:26)
[2025-02-09] VITALS (12 sets, daily range): BP systolic 85–147; BP diastolic 57–74; PULSE 67–81; RESP 16–18; TEMP 36.1–36.5; O2SAT 97–99
--- NOTE | 2025-02-09 | ECHO_ITS ---
Patient Info Name: Kelli Garduno Age: 49 years : 1975 Gender: Female Ht: 64 in Wt: 198 lbs BSA: 2.05 m2 HR: 67 bpm BP: 147 / 74 mmHg Heart Rhythm: Sinus Rhythm Technical Quality: Good Exam Date: 02/09/2025 10:31 AM Patient Status: I Admit Date: 02/08/2025 Exam Type: CA echo doppler color flow Complete two-dimensional, color flow and Doppler transthoracic echocardiogram is performed. Staff Referring Physician: Horace Sorenson Customer Engineer: Rossy Cooper Attending Provider: Stephen Weaver Summary 1. Complete two-dimensional, color flow and Doppler transthoracic echocardiogram is performed. 2. Left ventricular chamber dimension is normal. 3. Left ventricular systolic function is normal, estimated at 65-70. 4. There is mildly increased left ventricular wall thickness. 5. The left ventricular diastolic function is normal. 6. Left atrial chamber dimension is mildly enlarged. 7. There is mild mitral valve regurgitation. 8. There is mild tricuspid valve regurgitation. Left Ventricle Left ventricular chamber dimension is normal. Left ventricular systolic function is normal, estimated at 65-70. There is mildly increased left ventricular wall thickness. The left ventricular diastolic function is normal. Right Ventricle Right ventricular chamber dimension is normal. Right ventricular systolic function is normal. Left Atria Left atrial chamber dimension is mildly enlarged. Right Atria Right atrial chamber dimension is normal. Atrial Septum Intact interatrial septum visualized by color flow imaging. Aortic Valve The aortic valve is trileaflet. There is mild aortic valve sclerosis. There is no aortic valve stenosis. There is trace aortic valve regurgitation. Pulmonic Valve The pulmonic valve is normal. There is no pulmonic valve stenosis. There is trace pulmonic regurgitation. Mitral Valve The mitral valve has normal leaflets. There is no mitral valve stenosis. There is mild mitral valve regurgitation. Tricuspid Valve The tricuspid valve leaflets are normal. There is no significant tricuspid valve stenosis. There is mild tricuspid valve regurgitation. No pulmonary hypertension, estimated pulmonary arterial systolic pressure is 35 mmHg. Pericardium/Pleural The pericardium appears normal. There is no pericardial effusion. Inferior Vena Cava Normal inferior vena cava with >50% collapse upon inspiration consistent with normal right atrial pressure, 5 mmHg. Aorta The aortic root size at the sinus of Valsalva is normal. Left Ventricular Outflow Tract Name Value Normal LVOT 2D LVOT Diameter 2.1 cm LVOT Doppler LVOT Peak Velocity 104 cm/s LVOT Peak Gradient 4 mmHg LVOT Mean Gradient 2 mmHg LVOT VTI 23 cm LVOT VTI/AV VTI Ratio 0.9 LVOT Stroke Volume 79 ml LVOT CO 5.2 l/min LVOT CI 2.5 l/min/m2 Pulmonic Valve Name Value Normal RVOT Doppler RVOT Peak Velocity 70 cm/s RVOT Peak Gradient 2 mmHg PV Doppler PV Peak Velocity 82 cm/s PV Peak Gradient 3 mmHg Mitral Valve Name Value Normal MV Diastolic Function MV E Peak Velocity 79 cm/s MV A Peak Velocity 64 cm/s MV E/A 1.2 MV Decel Time (PW) 198 ms MV Annular TDI MV E/e' (Septal) 10.9 MV E/e' (Lateral) 6.7 MV E/e' (Average) 8.8 Tricuspid Valve Name Value Normal TV Regurgitation Doppler TR Peak Velocity 276 cm/s TR Peak Gradient 25 mmHg Estimated PAP/RSVP RA Pressure 5 mmHg <=5 PA Systolic Pressure 35 mmHg <36 RV Systolic Pressure 35 mmHg <36 TV Annular TDI TV Lateral Sabina s' Velocity 12.6 cm/s >=9.5 Aortic Valve Name Value Normal AV Doppler AV Peak Velocity 118 cm/s AV Peak Gradient 6 mmHg AV Mean Gradient 2 mmHg AV VTI 25 cm AV Area (Cont Eq VTI) 3.2 cm2 >=3.0 AV Area (Cont Eq Tyler) 3.0 cm2 AV DI (Tyler) 0.88 AV Regurgitation 2D LVOT Area 3.4 cm2 Ventricles Name Value Normal LV Dimensions 2D/MM IVS Diastolic Thickness (2D) 1.0 cm 0.6-1.0 LVID Diastole (2D) 4.4 cm 3.8-5.2 LVIW Diastolic Thickness (2D) 1.0 cm 0.6-0.9 LVID Systole (2D) 2.9 cm 2.2-3.5 LVOT Diameter 2.1 cm LV Mass (2D Cubed) 142.10 g 67.00-162.00 LV Mass Index (2D Cubed) 69 g/m2 43-95 Relative Wall Thickness (2D) 0.44 <=0.42 LV Fractional Shortening/Ejection Fraction 2D/MM LV Fractional Shortening (2D) 34 % 27-45 LV EF (2D Teichholz) 63 % LV Diastolic Volume (4C MOD) 126 ml LV EF (4C MOD) 59 % LV Diastolic Volume (2C MOD) 115 ml LV EF (2C MOD) 69 % LV Diastolic Volume (BP MOD) 120 ml 46-106 LV Diastolic Volume Index (BP MOD) 59 ml/m2 29-61 LV Systolic Volume (BP MOD) 44 ml 14-42 LV Systolic Volume Index (BP MOD) 22 ml/m2 8-24 LV EF (BP MOD) 63 % 54-74 LV Diastolic Length (4C) 8.8 cm LV Systolic Length (4C) 7.2 cm LV Stroke Volume (4C MOD) 74 ml Atria Name Value Normal LA Dimensions LA Volume (4C A-L) 82 ml LA Volume (BP A-L) 62 ml RA Dimensions RA Systolic Major Shiner Length (4C) 4.4 cm 2.2-2.8 RA Area (4C) 16.4 cm2 <=18.0 Report Signatures
[2025-02-09 04:38] LABS: Basophils Percent Auto 0.4 % (0.2-1.2); Eosinophils Absolute Auto 0.2 K/mm3 (0-0.3); Eosinophils Percent Auto 2.1 % (0-4.4); Hematocrit 33.8 % (37.0-47.0); Immature Granulocyte Absolute 0.03 K/mm3 (0.00-0.031); Immature Granulocyte Percent A 0.3 % (0-0.5); Lymphocytes Absolute Auto 1.58 K/mm3 (0.9-3.2); Lymphocytes Percent Auto 17.6 % (18.3-44.2); Mean Corpuscular HGB Conc 29.6 g/dl (32-36); Mean Corpuscular Hemoglobin 22.3 pg (26-34); Mean Corpuscular Volume 75.3 fl (80-100); Mean Platelet Volume 9.4 fl (7.4-10.4); Monocytes Absolute Auto 0.7 K/mm3 (0.1-0.6); Monocytes Percent Auto 7.9 % (2.6-8.5); Neutrophils Absolute Auto 6.5 K/mm3 (1.3-6.7); Neutrophils Percent Auto 71.7 % (45.5-73.1); Platelet Count Result 222 k/mm3 (150-375); Red Blood Count 4.49 M/mm3 (4.2-5.4); Red Cell Distribution Width 18.6 % (11.5-14.5)
[2025-02-09] MEDS: traMADol HCL (*CRX) 50 MG TABLET PO ×2 (04:39→21:04)
[2025-02-09 04:47] LABS: Lactic Acid Reflex 0.7 mmol/L (0.7-2.0)
[2025-02-09 04:52] LABS: Alanine Aminotransferase 50 U/L (6-35); Albumin Level 3.8 g/dL (3.5-5.1); Alkaline Phosphatase 74 U/L (38-126); Anion Gap 5 mmol/L (4-12); Aspartate Amino Transferase 46 U/L (14-36); Bilirubin,Total 0.5 mg/dL (0.2-1.3); Blood Urea Nitrogen 8 mg/dL (7-17); Calcium 8.4 mg/dL (8.4-10.2); Carbon Dioxide 24 mmol/L (22-30); Chloride 111 mmol/L (98-107); Estimated CRCL calculation 94 ml/min; Estimated Glomerular Filt Rate > 60; Glucose 169 mg/dL (65-110); Magnesium 2.2 mg/dL (1.6-2.3); Potassium 3.8 mmol/L (3.4-5.0); Sodium 140 mmol/L (137-145)
[2025-02-09 05:29] LABS: Platelet Estimate Adequate (Adequate)
[2025-02-09 05:30] LABS: Anisocytosis 2+; Ovalocytes 1+
[2025-02-09 05:31] LABS: Schistocytes None Seen
[2025-02-09 08:17] LABS: Glucose Point of Care 154 mg/dl (65-105)
[2025-02-09] MEDS: SERTRALINE HCL 50 MG TABLET 200 MG BY MOUTH (08:18)
[2025-02-09] MEDS: ENOXAPARIN 40 MG/0.4 ML SYRINGE SUB-Q (08:19)
--- NOTE | 2025-02-09 09:33 | PM.IMPN ---
Progress Note: A&P Assessment and Plan (1) Syncope: Code(s): R55 - Syncope and collapse Status: Acute Plan Syncope patient noted it was witnessed and no motor activities, tongue bites or loss of bowel movement EKG NSR with low voltage CTA chest, CT head, carotid doppler unremarkable Vital signs stable and within normal limits ECHO pending PT/OT Monitor on telemetry Orthostatic hypotension Started on Midodrine daily orthostatic vital signs DM2 SSI with accucheks Lantus 10 units DVT prophylaxis on Sq Lovenox Full code Surrogate decision maker, Laz Garduno, Subjective Date/time seen: 02/09/25 09:33 Interval history: COmfortable at bedisde waiting ECHO Review of Systems Review of Systems: All other systems reviewed and negative except as noted in history above. Exam Narrative: General: alert and comfortable Eyes: EOMI, PERRLA ENNT External ears normal, Neck is supple, no masses, Respiratory systems: Clear to auscultation Cardiovascular S1, S2, normal rhythm, no murmur, rub, or gallop; no thrill or palpable murmurs on palpation. Gastrointestinal: soft, non-tender, and non-distended abdomen with no masses; BS present Skin: lip cut and abrasion on the samaritan Musculoskeletal: no abnormality and no tenderness, normal ROM Neurologic: Alert and oriented x3, non focal Mental Status Exam: normal affect Objective Data Vital Signs Vital Signs: Vital Signs - 24 hr 02/08/25 09:45 02/08/25 12:43 02/08/25 12:44 Temperature 97.9 F Pulse Rate 70 78 80 Respiratory Rate 14 Blood Pressure 131/70 151/79 H 156/71 H Pulse Oximetry 100 Oxygen Delivery Room Air 02/08/25 12:45 02/08/25 14:11 02/08/25 16:00 Temperature Pulse Rate 79 87 62 Respiratory Rate 18 Blood Pressure 136/71 140/80 Pulse Oximetry 98 Oxygen Delivery 02/08/25 20:00 02/08/25 20:00 02/08/25 21:43 Temperature 97 F L Pulse Rate 70 71 70 Respiratory Rate 20 20 Blood Pressure 146/70 H Pulse Oximetry 99 99 Oxygen Delivery Room Air 02/09/25 00:00 02/09/25 04:00 02/09/25 04:19 Temperature 97 F L Pulse Rate 72 76 72 Respiratory Rate 18 Blood Pressure 147/74 H Pulse Oximetry 99 Oxygen Delivery 02/09/25 08:30 02/09/25 08:34 02/09/25 08:38 Temperature Pulse Rate 69 73 81 Respiratory Rate Blood Pressure 132/67 109/68 85/57 L Pulse Oximetry Oxygen Delivery Intake/Output Intake/Output: Intake & Output 02/06/25 02/07/25 02/08/25 02/09/25 23:59 23:59 23:59 23:59 Intake Total 1120 300 Balance 1120 300 Meds/Results Medications: Active Medications Generic Name Dose Route Start Last Admin Trade Name Freq PRN Reason Stop Dose Admin Acetaminophen 650 mg 02/08/25 21:06 Acetaminophen 325 Mg Tablet PO Q4H PRN Mild Pain (1-3) or Fever Dextrose 12.5 gm 02/08/25 14:32 Dextrose 50% 25 Gm/50 Ml Syringe IV PUSH PRN PRN Hypoglycemia Protocol Enoxaparin Sodium 40 mg 02/09/25 09:00 02/09/25 08:19 Enoxaparin 40 Mg/0.4 Ml Syringe SUB-Q 40 mg DAILY NADJA Administration Glucagon 1 mg 02/08/25 14:32 Glucagon For Inj 1 Mg Vial IM PRN PRN Hypoglycemia Protocol Glucose 15 gm 02/08/25 14:32 Glucose Oral Gel 15 Gm Of Glucse In 37.5 Gm Tube PO PRN PRN Hypoglycemia Protocol Dextrose 1,000 mls @ 100 mls/hr 02/08/25 14:32 Dextrose 5% 1,000 Ml IVPB PRN PRN Hypoglycemia Protocol Insulin Aspart 2 - 5 units 02/08/25 17:00 02/09/25 08:15 Insulin Aspart (*Bkc) 100 Units/Ml SUB-Q Not Given [facility] Protocol Insulin Glargine 10 units 02/08/25 21:00 02/08/25 21:26 Insulin Glargine (*Bkc) 100 Units/Ml SUB-Q 10 units HS NADJA Administration Ketorolac Tromethamine 15 mg 02/08/25 21:06 02/08/25 21:25 Ketorolac 15 Mg/Ml Vial (*Bkc) IV PUSH 15 mg Q6H PRN Administration Pain Rated 4-6 Ondansetron HCl 4 mg 02/08/25 21:06 Ondansetron Inj 4 Mg/2 Ml Vial IV PUSH Q6H PRN Nausea And Vomiting Perflutren Lipid Microsphere 0 ml 02/08/25 14:32 Perflutren Lipid Microspheres 1.5 Ml Vial Diluted To 10 Ml Total Volume IV PUSH 02/11/25 14:33 ONCE PRN adequate visualization Protocol Sertraline HCl 200 mg 02/08/25 21:10 02/09/25 08:18 Sertraline Hcl 50 Mg Tablet BY MOUTH 200 mg DAILY NADJA Administration Tramadol HCl 50 mg 02/08/25 21:07 02/09/25 04:39 Tramadol Hcl (*Crx) 50 Mg Tablet PO 50 mg Q6H PRN Administration pain 4-6 Radiology Results: ITS Impressions Face CT 02/08/25 10:33 IMPRESSION: 1. No calvarial or maxillofacial fractures. 2. Mild age-related changes in the brain. No acute intracranial process. 3. Extensive advanced dental disease. Head CT 02/08/25 10:33 IMPRESSION: 1. No calvarial or maxillofacial fractures. 2. Mild age-related changes in the brain. No acute intracranial process. 3. Extensive advanced dental disease. Chest X-Ray 02/08/25 10:34 Impression: Normal chest. Cervical Spine CT 02/08/25 10:44 IMPRESSION: 1. Mild cervical uncovertebral and facet osteoarthritis and straightening of the normal cervical lordosis which could be positional or due to muscle spasm. Otherwise unremarkable cervical spine CT with no acute fracture. Chest CTA 02/08/25 12:56 Impression: No evidence of pulmonary embolus, aortic dissection, or aortic aneurysm. Clear lungs. Carotid Doppler Study 02/08/25 16:19 IMPRESSION: 1. <50% stenosis in the right internal carotid artery. 2. <50% stenosis in the left internal carotid artery. Labs Labs: Laboratory Results - last 24 hr 02/08/25 02/08/25 02/08/25 09:52 11:10 11:33 WBC 7.1 RBC 4.41 Hgb 9.7 L Hct 34.3 L MCV 77.8 L MCH 22.0 L MCHC 28.3 L RDW 18.6 H Plt Count 235 MPV 10.2 Immature Gran % (Auto) 0.3 Neut % (Auto) 73.5 H Lymph % (Auto) 15.8 L Powell % (Auto) 7.0 Eos % (Auto) 2.8 Baso % (Auto) 0.6 Lymph # (Auto) 1.12 Powell # (Auto) 0.5 Eos # (Auto) 0.2 Baso # (Auto) 0.0 Abs Immat Gran (auto) 0.02 Absolute Neuts (auto) 5.2 Absolute Nucleated RBC 0.000 Band Neutrophils % Not Reportable Nucleated RBC % 0.0 Platelet Estimate Adequate Hypochromasia 1+ Poikilocytosis 1+ Anisocytosis 1+ Ovalocytes Schistocytes None seen PT 13.4 INR 1.0 APTT 27.6 D-Dimer 0.54 H Sodium 139 Potassium 3.8 Chloride 106 Carbon Dioxide 26 Anion Gap 7 BUN 12 Creatinine 0.77 Estim Creat Clear Calc 82 Estimated GFR > 60 Glucose 376 H POC Capillary Glucose 374 H Lactic Acid 1.4 Calcium 8.9 Magnesium 2.5 H Iron TIBC % Saturation Ferritin Total Bilirubin 0.4 AST 59 H ALT 62 H Alkaline Phosphatase 71 Troponin I < 0.012 Total Protein 7.0 Albumin 4.2 Urine Color Yellow Urine Appearance Clear Urine pH 6.5 Ur Specific [place] 1.037 H Urine Protein 1+ H Urine Glucose (UA) 3+ H Urine Ketones Negative Ur Blood (Man) 2+ H Urine Nitrate Negative Urine Bilirubin Negative Urine Urobilinogen 0.2 Leukocyte Esterase Rfl Negative Urine RBC 3-5 H Urine WBC 0-5 Ur Squamous Epith Cells None seen Urine Bacteria None seen Urine Casts 0-2 POC Urine HCG, Qual 02/08/25 02/08/25 02/08/25 11:50 15:42 16:47 WBC RBC Hgb Hct MCV MCH MCHC RDW Plt Count MPV Immature Gran % (Auto) Neut % (Auto) Lymph % (Auto) [place] % (Auto) Eos % (Auto) Baso % (Auto) Lymph # (Auto) [place] # (Auto) Eos # (Auto) Baso # (Auto) Abs Immat Gran (auto) Absolute Neuts (auto) Absolute Nucleated RBC Band Neutrophils % Nucleated RBC % Platelet Estimate Hypochromasia Poikilocytosis Anisocytosis Ovalocytes Schistocytes PT INR APTT D-Dimer Sodium Potassium Chloride Carbon Dioxide Anion Gap BUN Creatinine Estim Creat Clear Calc Estimated GFR Glucose POC Capillary Glucose 203 H Lactic Acid Calcium Magnesium Iron 27 L TIBC 465 H % Saturation 6 L Ferritin 4.43 L Total Bilirubin AST ALT Alkaline Phosphatase Troponin I Total Protein Albumin Urine Color Urine Appearance Urine pH Ur Specific [place] Urine Protein Urine Glucose (UA) Urine Ketones Ur Blood (Man) Urine Nitrate Urine Bilirubin Urine Urobilinogen Leukocyte Esterase Rfl Urine RBC Urine WBC Ur Squamous Epith Cells Urine Bacteria Urine Casts POC Urine HCG, Qual Negative 02/08/25 02/09/25 02/09/25 21:09 04:23 08:14 WBC 9.0 RBC 4.49 Hgb 10.0 L Hct 33.8 L MCV 75.3 L MCH 22.3 L MCHC 29.6 L RDW 18.6 H Plt Count 222 MPV 9.4 Immature Gran % (Auto) 0.3 Neut % (Auto) 71.7 Lymph % (Auto) 17.6 L [place] % (Auto) 7.9 Eos % (Auto) 2.1 Baso % (Auto) 0.4 Lymph # (Auto) 1.58 Powell # (Auto) 0.7 H Eos # (Auto) 0.2 Baso # (Auto) 0.0 Abs Immat Gran (auto) 0.03 Absolute Neuts (auto) 6.5 Absolute Nucleated RBC 0.000 Band Neutrophils % Not Reportable Nucleated RBC % 0.0 Platelet Estimate Adequate Hypochromasia Poikilocytosis Anisocytosis 2+ Ovalocytes 1+ Schistocytes None seen PT INR APTT D-Dimer Sodium 140 Potassium 3.8 Chloride 111 H Carbon Dioxide 24 Anion Gap 5 BUN 8 Creatinine 0.67 L Estim Creat Clear Calc 94 Estimated GFR > 60 Glucose 169 H POC Capillary Glucose 198 H 154 H Lactic Acid 0.7 Calcium 8.4 Magnesium 2.2 Iron TIBC % Saturation Ferritin Total Bilirubin 0.5 AST 46 H ALT 50 H Alkaline Phosphatase 74 Troponin I Total Protein 7.0 Albumin 3.8 Urine Color Urine Appearance Urine pH Ur Specific [place] Urine Protein Urine Glucose (UA) Urine Ketones Ur Blood (Man) Urine Nitrate Urine Bilirubin Urine Urobilinogen Leukocyte Esterase Rfl Urine RBC Urine WBC Ur Squamous Epith Cells Urine Bacteria Urine Casts POC Urine HCG, Qual
[2025-02-09] MEDS: MIDODRINE HCL 2.5 MG TABLET 5 MG PO ×2 (12:11→16:29)
[2025-02-09 12:27] LABS: Glucose Point of Care 175 mg/dl (65-105)
[2025-02-09 16:59] LABS: Glucose Point of Care 136 mg/dl (65-105)
[2025-02-09] MEDS: INSULIN GLARGINE (*BKC) 100 UNITS/ML 10 UNITS SUB-Q (21:05)
[2025-02-10] VITALS (13 sets, daily range): BP systolic 76–142; BP diastolic 52–77; PULSE 66–83; RESP 16–18; TEMP 36.2–36.9; O2SAT 98–100
[2025-02-10 01:25] LABS: Glucose Point of Care 158 mg/dl (65-105)
[2025-02-10] MEDS: traMADol HCL (*CRX) 50 MG TABLET PO ×2 (06:46→20:41)
[2025-02-10 08:08] LABS: Glucose Point of Care 151 mg/dl (65-105)
[2025-02-10] MEDS: MIDODRINE HCL 2.5 MG TABLET 5 MG PO ×3 (08:32→16:35)
[2025-02-10] MEDS: SERTRALINE HCL 50 MG TABLET 200 MG BY MOUTH (08:32)
[2025-02-10] MEDS: ENOXAPARIN 40 MG/0.4 ML SYRINGE SUB-Q (08:33)
[2025-02-10] MEDS: ACETAMINOPHEN 325 MG TABLET 650 MG PO (08:36)
[2025-02-10] MEDS: SODIUM CHLORIDE 0.9% IV 1,000 ML 150 ML IRRIGATION (10:59)
--- NOTE | 2025-02-10 11:04 | P.PNIM_ITS ---
Progress Note: A&P Assessment and Plan (1) Syncope: Code(s): R55 - Syncope and collapse Status: Acute Plan Syncope patient noted it was witnessed and no motor activities, tongue bites or loss of bowel movement EKG NSR with low voltage CTA chest, CT head, carotid doppler unremarkable Vital signs stable and within normal limits ECHO normal exam PT/OT recommends home with home health Monitor on telemetry Orthostatic hypotension On Midodrine and IVF daily orthostatic vital signs DM2 SSI with accucheks Lantus 10 units DVT prophylaxis on Sq Lovenox Still orthostatic awaiting resolution for discharge Subjective Date/time seen: 02/10/25 11:04 Interval history: Patient comfortable at bedside Orthostatic today Review of Systems Review of Systems: All other systems reviewed and negative except as noted in history above. Exam Narrative: General: alert and comfortable Eyes: EOMI, PERRLA ENNT External ears normal, Neck is supple, no masses, Respiratory systems: Clear to auscultation Cardiovascular S1, S2, normal rhythm, no murmur, rub, or gallop; no thrill or palpable murmurs on palpation. Gastrointestinal: soft, non-tender, and non-distended abdomen with no masses; BS present Skin: lip cut and abrasion on the denominational Musculoskeletal: no abnormality and no tenderness, normal ROM Neurologic: Alert and oriented x3, non focal Mental Status Exam: normal affect Objective Data Vital Signs Vital Signs: Vital Signs - 24 hr 02/09/25 12:00 02/09/25 14:00 02/09/25 15:17 Temperature 97.7 F Pulse Rate 76 69 Respiratory Rate 18 Blood Pressure 113/67 Pulse Oximetry 97 Oxygen Delivery Room Air 02/09/25 16:00 02/09/25 20:00 02/09/25 20:00 Temperature Pulse Rate 67 67 68 Respiratory Rate 18 Blood Pressure Pulse Oximetry 97 Oxygen Delivery Room Air 02/09/25 20:35 02/10/25 00:00 02/10/25 04:00 Temperature 97.6 F Pulse Rate 69 67 71 Respiratory Rate 16 Blood Pressure 144/70 H Pulse Oximetry 99 Oxygen Delivery 02/10/25 07:03 02/10/25 08:32 02/10/25 08:32 Temperature 98.5 F Pulse Rate 72 80 71 Respiratory Rate 16 18 Blood Pressure 120/72 Pulse Oximetry 98 98 Oxygen Delivery Room Air 02/10/25 09:14 02/10/25 09:21 02/10/25 09:22 Temperature 97.1 F L 97.1 F L Pulse Rate 74 83 Respiratory Rate 18 18 Blood Pressure 121/74 109/65 Pulse Oximetry 99 99 Oxygen Delivery Room Air 02/10/25 09:22 Temperature 97.1 F L Pulse Rate 80 Respiratory Rate 18 Blood Pressure 76/52 L Pulse Oximetry 98 Oxygen Delivery Intake/Output Intake/Output: Intake & Output 02/07/25 02/08/25 02/09/25 02/10/25 23:59 23:59 23:59 23:59 Intake Total 1120 1062 540 Balance 1120 1062 540 Meds/Results Medications: Active Medications Generic Name Dose Route Start Last Admin Trade Name Freq PRN Reason Stop Dose Admin Acetaminophen 650 mg 02/08/25 21:06 02/10/25 08:36 Acetaminophen 325 Mg Tablet PO 650 mg Q4H PRN Administration Mild Pain (1-3) or Fever Dextrose 12.5 gm 02/08/25 14:32 Dextrose 50% 25 Gm/50 Ml Syringe IV PUSH PRN PRN Hypoglycemia Protocol Enoxaparin Sodium 40 mg 02/09/25 09:00 02/10/25 08:33 Enoxaparin 40 Mg/0.4 Ml Syringe SUB-Q 40 mg DAILY NADJA Administration Glucagon 1 mg 02/08/25 14:32 Glucagon For Inj 1 Mg Vial IM PRN PRN Hypoglycemia Protocol Glucose 15 gm 02/08/25 14:32 Glucose Oral Gel 15 Gm Of Glucse In 37.5 Gm Tube PO PRN PRN Hypoglycemia Protocol Dextrose 1,000 mls @ 100 mls/hr 02/08/25 14:32 Dextrose 5% 1,000 Ml IVPB PRN PRN Hypoglycemia Protocol Sodium Chloride 1,000 mls @ 150 mls/hr 02/10/25 09:35 02/10/25 10:59 Normal Saline Iv IRRIGATION 02/10/25 16:14 150 mls/hr ONCE ONE Administration Insulin Aspart 2 - 5 units 02/08/25 17:00 02/10/25 09:55 Insulin Aspart (*Bkc) 100 Units/Ml SUB-Q Not Given TIDWM NADJA Protocol Insulin Glargine 10 units 02/08/25 21:00 02/09/25 21:05 Insulin Glargine (*Bkc) 100 Units/Ml SUB-Q 10 units HS NADJA Administration Ketorolac Tromethamine 15 mg 02/08/25 21:06 02/08/25 21:25 Ketorolac 15 Mg/Ml Vial (*Bkc) IV PUSH 15 mg Q6H PRN Administration Pain Rated 4-6 Midodrine 5 mg 02/09/25 13:00 02/10/25 08:32 Midodrine Hcl 2.5 Mg Tablet PO 5 mg TID NADJA Administration Ondansetron HCl 4 mg 02/08/25 21:06 Ondansetron Inj 4 Mg/2 Ml Vial IV PUSH Q6H PRN Nausea And Vomiting Perflutren Lipid Microsphere 0 ml 02/08/25 14:32 Perflutren Lipid Microspheres 1.5 Ml Vial Diluted To 10 Ml Total Volume IV PUSH 02/11/25 14:33 ONCE PRN adequate visualization Protocol Sertraline HCl 200 mg 02/08/25 21:10 02/10/25 08:32 Sertraline Hcl 50 Mg Tablet BY MOUTH 200 mg DAILY NADJA Administration Tramadol HCl 50 mg 02/08/25 21:07 02/10/25 06:46 Tramadol Hcl (*Crx) 50 Mg Tablet PO 50 mg Q6H PRN Administration pain 4-6 Radiology Results: ITS Impressions Face CT 02/08/25 10:33 IMPRESSION: 1. No calvarial or maxillofacial fractures. 2. Mild age-related changes in the brain. No acute intracranial process. 3. Extensive advanced dental disease. Head CT 02/08/25 10:33 IMPRESSION: 1. No calvarial or maxillofacial fractures. 2. Mild age-related changes in the brain. No acute intracranial process. 3. Extensive advanced dental disease. Chest X-Ray 02/08/25 10:34 Impression: Normal chest. Cervical Spine CT 02/08/25 10:44 IMPRESSION: 1. Mild cervical uncovertebral and facet osteoarthritis and straightening of the normal cervical lordosis which could be positional or due to muscle spasm. Otherwise unremarkable cervical spine CT with no acute fracture. Chest CTA 02/08/25 12:56 Impression: No evidence of pulmonary embolus, aortic dissection, or aortic aneurysm. Clear lungs. Carotid Doppler Study 02/08/25 16:19 IMPRESSION: 1. <50% stenosis in the right internal carotid artery. 2. <50% stenosis in the left internal carotid artery. Labs Labs: Laboratory Results - last 24 hr 02/09/25 02/09/25 02/09/25 12:25 16:57 20:40 POC Capillary Glucose 175 H 136 H 158 H 02/10/25 08:05 POC Capillary Glucose 151 H
[2025-02-10 12:12] LABS: Glucose Point of Care 153 mg/dl (65-105)
[2025-02-10 16:45] LABS: Glucose Point of Care 140 mg/dl (65-105)
[2025-02-10] MEDS: INSULIN GLARGINE (*BKC) 100 UNITS/ML 10 UNITS SUB-Q (20:41)
[2025-02-10 23:00] LABS: Glucose Point of Care 119 mg/dl (65-105)
[2025-02-11] VITALS (12 sets, daily range): BP systolic 95–150; BP diastolic 57–86; PULSE 68–87; RESP 16–18; TEMP 36.3–37; O2SAT 98–100
[2025-02-11] MEDS: traMADol HCL (*CRX) 50 MG TABLET PO (05:13)
[2025-02-11 05:16] LABS: Basophils Percent Auto 0.5 % (0.2-1.2); Eosinophils Absolute Auto 0.2 K/mm3 (0-0.3); Eosinophils Percent Auto 1.9 % (0-4.4); Hemoglobin 10.3 g/dL (12.0-15.0); Immature Granulocyte Absolute 0.02 K/mm3 (0.00-0.031); Immature Granulocyte Percent A 0.2 % (0-0.5); Lymphocytes Absolute Auto 1.83 K/mm3 (0.9-3.2); Lymphocytes Percent Auto 22.1 % (18.3-44.2); Mean Corpuscular HGB Conc 29.4 g/dl (32-36); Mean Corpuscular Hemoglobin 22.2 pg (26-34); Mean Corpuscular Volume 75.3 fl (80-100); Mean Platelet Volume 9.6 fl (7.4-10.4); Monocytes Absolute Auto 0.6 K/mm3 (0.1-0.6); Monocytes Percent Auto 7.5 % (2.6-8.5); Neutrophils Absolute Auto 5.6 K/mm3 (1.3-6.7); Neutrophils Percent Auto 67.8 % (45.5-73.1); Platelet Count Result 241 k/mm3 (150-375); Red Blood Count 4.65 M/mm3 (4.2-5.4); Red Cell Distribution Width 18.4 % (11.5-14.5); White Blood Count 8.3 K/mm3 (4.5-10.0)
[2025-02-11 05:32] LABS: Alanine Aminotransferase 31 U/L (6-35); Albumin Level 3.9 g/dL (3.5-5.1); Alkaline Phosphatase 75 U/L (38-126); Anion Gap 9 mmol/L (4-12); Aspartate Amino Transferase 30 U/L (14-36); Bilirubin,Total 0.5 mg/dL (0.2-1.3); Blood Urea Nitrogen 11 mg/dL (7-17); Calcium 8.5 mg/dL (8.4-10.2); Carbon Dioxide 21 mmol/L (22-30); Chloride 108 mmol/L (98-107); Estimated CRCL calculation 103 ml/min; Estimated Glomerular Filt Rate > 60; Glucose 94 mg/dL (65-110); Magnesium 2.3 mg/dL (1.6-2.3); Potassium 3.5 mmol/L (3.4-5.0); Sodium 138 mmol/L (137-145)
[2025-02-11 05:44] LABS: Platelet Estimate Adequate (Adequate)
[2025-02-11 05:46] LABS: Anisocytosis 1+; Burr Cells 1+; Microcytosis 1+ (NORMAL); Ovalocytes 1+; Poikilocytosis 1+
[2025-02-11 05:47] LABS: Schistocytes None Seen
[2025-02-11 07:44] LABS: Glucose Point of Care 96 mg/dl (65-105)
[2025-02-11] MEDS: SERTRALINE HCL 50 MG TABLET 200 MG BY MOUTH (08:24)
[2025-02-11] MEDS: MIDODRINE HCL 2.5 MG TABLET 5 MG PO (08:24)
[2025-02-11] MEDS: ENOXAPARIN 40 MG/0.4 ML SYRINGE SUB-Q (08:24)
[2025-02-11 11:46] LABS: Glucose Point of Care 139 mg/dl (65-105)
--- NOTE | 2025-02-11 11:52 | P.PNIM_ITS ---
Progress Note: A&P Assessment and Plan (1) Syncope: Code(s): R55 - Syncope and collapse Status: Acute Plan Syncope likely from orthostatic patient noted it was witnessed and no motor activities, tongue bites or loss of bowel movement EKG NSR with low voltage CTA chest, CT head, carotid doppler unremarkable Vital signs stable and within normal limits ECHO normal exam PT/OT recommends home with home health 14-day event monitor on discharge Orthostatic hypotension still orthostatic, now on Midodrine 7.5mg tid daily orthostatic vital signs DM2 SSI with accucheks Lantus 10 units DVT prophylaxis on Sq Lovenox Still orthostatic awaiting resolution for discharge WIll discharge on 14 day event monitor Subjective Date/time seen: 02/11/25 11:52 Interval history: Still orthostatic today but improved Increased Midodrine to 7.5mg tid monitor one more night Review of Systems Review of Systems: All other systems reviewed and negative except as noted in history above. Exam Narrative: General: alert and comfortable Eyes: EOMI, PERRLA ENNT External ears normal, Neck is supple, no masses, Respiratory systems: Clear to auscultation Cardiovascular S1, S2, normal rhythm, no murmur, rub, or gallop; no thrill or palpable murmurs on palpation. Gastrointestinal: soft, non-tender, and non-distended abdomen with no masses; BS present Skin: lip cut and abrasion on the rastafarian Musculoskeletal: no abnormality and no tenderness, normal ROM Neurologic: Alert and oriented x3, non focal Mental Status Exam: normal affect Objective Data Vital Signs Vital Signs: Vital Signs - 24 hr 02/10/25 12:00 02/10/25 14:00 02/10/25 16:00 Temperature 97.6 F Pulse Rate 68 70 72 Respiratory Rate 17 Blood Pressure 142/76 H Pulse Oximetry 99 Oxygen Delivery 02/10/25 20:00 02/10/25 20:00 02/10/25 20:51 Temperature 97.6 F Pulse Rate 72 66 83 Respiratory Rate 17 16 Blood Pressure 109/67 Pulse Oximetry 99 100 Oxygen Delivery Room Air 02/10/25 21:24 02/10/25 21:24 02/10/25 21:30 Temperature 98.0 F 98.0 F 98.0 F Pulse Rate 77 77 83 Respiratory Rate 16 16 18 Blood Pressure 112/77 112/77 92/63 L Pulse Oximetry 100 100 100 Oxygen Delivery 02/11/25 00:00 02/11/25 04:00 02/11/25 06:00 Temperature 98.6 F Pulse Rate 71 72 76 Respiratory Rate 16 Blood Pressure 150/86 H Pulse Oximetry 98 Oxygen Delivery 02/11/25 08:00 02/11/25 08:18 02/11/25 08:24 Temperature 97.5 F L 97.5 F L Pulse Rate 71 77 77 Respiratory Rate 18 18 Blood Pressure 116/60 116/60 Pulse Oximetry 100 100 Oxygen Delivery 02/11/25 08:24 02/11/25 10:27 02/11/25 10:31 Temperature 97.4 F L 97.4 F L Pulse Rate 77 72 85 Respiratory Rate 18 16 16 Blood Pressure 119/69 113/78 Pulse Oximetry 100 99 98 Oxygen Delivery Room Air 02/11/25 10:32 Temperature 97.6 F Pulse Rate 87 Respiratory Rate 16 Blood Pressure 95/60 L Pulse Oximetry 100 Oxygen Delivery Intake/Output Intake/Output: Intake & Output 02/08/25 02/09/25 02/10/25 02/11/25 23:59 23:59 23:59 23:59 Intake Total 1120 1062 1444 790 Balance 1120 1062 1444 790 Meds/Results Medications: Active Medications Generic Name Dose Route Start Last Admin Trade Name Freq PRN Reason Stop Dose Admin Acetaminophen 650 mg 02/08/25 21:06 02/10/25 08:36 Acetaminophen 325 Mg Tablet PO 650 mg Q4H PRN Administration Mild Pain (1-3) or Fever Dextrose 12.5 gm 02/08/25 14:32 Dextrose 50% 25 Gm/50 Ml Syringe IV PUSH PRN PRN Hypoglycemia Protocol Enoxaparin Sodium 40 mg 02/09/25 09:00 02/11/25 08:24 Enoxaparin 40 Mg/0.4 Ml Syringe SUB-Q 40 mg DAILY NADJA Administration Glucagon 1 mg 02/08/25 14:32 Glucagon For Inj 1 Mg Vial IM PRN PRN Hypoglycemia Protocol Glucose 15 gm 02/08/25 14:32 Glucose Oral Gel 15 Gm Of Glucse In 37.5 Gm Tube PO PRN PRN Hypoglycemia Protocol Dextrose 1,000 mls @ 100 mls/hr 02/08/25 14:32 Dextrose 5% 1,000 Ml IVPB PRN PRN Hypoglycemia Protocol Insulin Aspart 2 - 5 units 02/08/25 17:00 02/11/25 08:23 Insulin Aspart (*Bkc) 100 Units/Ml SUB-Q Not Given TIDWM NADJA Protocol Insulin Glargine 10 units 02/08/25 21:00 02/10/25 20:41 Insulin Glargine (*Bkc) 100 Units/Ml SUB-Q 10 units HS NADJA Administration Ketorolac Tromethamine 15 mg 02/08/25 21:06 02/08/25 21:25 Ketorolac 15 Mg/Ml Vial (*Bkc) IV PUSH 15 mg Q6H PRN Administration Pain Rated 4-6 Midodrine 7.5 mg 02/11/25 13:00 Midodrine Hcl 2.5 Mg Tablet PO TID NADJA Ondansetron HCl 4 mg 02/08/25 21:06 Ondansetron Inj 4 Mg/2 Ml Vial IV PUSH Q6H PRN Nausea And Vomiting Perflutren Lipid Microsphere 0 ml 02/08/25 14:32 Perflutren Lipid Microspheres 1.5 Ml Vial Diluted To 10 Ml Total Volume IV PUSH 02/11/25 14:33 ONCE PRN adequate visualization Protocol Sertraline HCl 200 mg 02/08/25 21:10 02/11/25 08:24 Sertraline Hcl 50 Mg Tablet BY MOUTH 200 mg DAILY NADJA Administration Tramadol HCl 50 mg 02/08/25 21:07 02/11/25 05:13 Tramadol Hcl (*Crx) 50 Mg Tablet PO 50 mg Q6H PRN Administration pain 4-6 Radiology Results: ITS Impressions Face CT 02/08/25 10:33 IMPRESSION: 1. No calvarial or maxillofacial fractures. 2. Mild age-related changes in the brain. No acute intracranial process. 3. Extensive advanced dental disease. Head CT 02/08/25 10:33 IMPRESSION: 1. No calvarial or maxillofacial fractures. 2. Mild age-related changes in the brain. No acute intracranial process. 3. Extensive advanced dental disease. Chest X-Ray 02/08/25 10:34 Impression: Normal chest. Cervical Spine CT 02/08/25 10:44 IMPRESSION: 1. Mild cervical uncovertebral and facet osteoarthritis and straightening of the normal cervical lordosis which could be positional or due to muscle spasm. Otherwise unremarkable cervical spine CT with no acute fracture. Chest CTA 02/08/25 12:56 Impression: No evidence of pulmonary embolus, aortic dissection, or aortic aneurysm. Clear lungs. Carotid Doppler Study 02/08/25 16:19 IMPRESSION: 1. <50% stenosis in the right internal carotid artery. 2. <50% stenosis in the left internal carotid artery. Labs Labs: Laboratory Results - last 24 hr 02/10/25 02/10/25 02/10/25 12:09 16:42 20:48 WBC RBC Hgb Hct MCV MCH MCHC RDW Plt Count MPV Immature Gran % (Auto) Neut % (Auto) Lymph % (Auto) [place] % (Auto) Eos % (Auto) Baso % (Auto) Lymph # (Auto) [place] # (Auto) Eos # (Auto) Baso # (Auto) Abs Immat Gran (auto) Absolute Neuts (auto) Absolute Nucleated RBC Band Neutrophils % Nucleated RBC % Platelet Estimate Poikilocytosis Anisocytosis Microcytosis Ovalocytes [place] Cells Schistocytes Sodium Potassium Chloride Carbon Dioxide Anion Gap BUN Creatinine Estim Creat Clear Calc Estimated GFR Glucose POC Capillary Glucose 153 H 140 H 119 H Calcium Magnesium Total Bilirubin AST ALT Alkaline Phosphatase Total Protein Albumin 02/11/25 02/11/25 02/11/25 04:56 07:42 11:38 WBC 8.3 RBC 4.65 Hgb 10.3 L Hct 35.0 L MCV 75.3 L MCH 22.2 L MCHC 29.4 L RDW 18.4 H Plt Count 241 MPV 9.6 Immature Gran % (Auto) 0.2 Neut % (Auto) 67.8 Lymph % (Auto) 22.1 [place] % (Auto) 7.5 Eos % (Auto) 1.9 Baso % (Auto) 0.5 Lymph # (Auto) 1.83 [place] # (Auto) 0.6 Eos # (Auto) 0.2 Baso # (Auto) 0.0 Abs Immat Gran (auto) 0.02 Absolute Neuts (auto) 5.6 Absolute Nucleated RBC 0.000 Band Neutrophils % Not Reportable Nucleated RBC % 0.0 Platelet Estimate Adequate Poikilocytosis 1+ Anisocytosis 1+ Microcytosis 1+ Ovalocytes 1+ [place] Cells 1+ Schistocytes None seen Sodium 138 Potassium 3.5 Chloride 108 H Carbon Dioxide 21 L Anion Gap 9 BUN 11 Creatinine 0.61 L Estim Creat Clear Calc 103 Estimated GFR > 60 Glucose 94 POC Capillary Glucose 96 139 H Calcium 8.5 Magnesium 2.3 Total Bilirubin 0.5 AST 30 ALT 31 Alkaline Phosphatase 75 Total Protein 7.0 Albumin 3.9
[2025-02-11] MEDS: SODIUM CHLORIDE 0.9% IV 500 ML IV CONT (12:13)
[2025-02-11] MEDS: MIDODRINE HCL 2.5 MG TABLET 7.5 MG PO (12:13)
--- NOTE | 2025-02-11 15:17 | P.DS_ITS ---
DS: Admitting Diagnosis Discharge Date 02/11/2025 Admitting Diagnosis syncope DS: Discharge Diagnosis Discharge Diagnosis (1) Syncope: Qualifiers: Syncope type: unspecified Qualified Code(s): R55 - Syncope and collapse Code(s): R55 - Syncope and collapse Status: Acute DS: Summary Hospital Course Hospital Course: 49-year-old female past medical history of type 2 diabetes presented to the ER on account of syncope. She that she was in her usual state of health he displayed up to about 8:30 a.m. while drinking her coffee seated when she he passed out. Addendum issued her face on the floor, otherwise denies any chest pain palpitations coughing vomiting abdominal pain diarrhea dysuria focal weakness prior to onset of symptoms. Today she was out for less than a minute under was no postictal state. ER evaluation vital signs blood pressure 140/80, pulse rate 87, respiratory rate 18, O2 sats 90%. EKG showed normal sinus rhythm low voltage. CTA chest and CT cervical spine, chest x-ray, head CT face CT unremarkable Patient admitted for further evaluation care. Patient was noted to be orthostatic was started on IVF and midodrine. Today has to increase Midodrine to 7.5mg for orthostatic blood pressure to normalized and patient was asymptomatic. ECHO normal exam, CTA Chest, CT head, Carotid doppler unremarkable Lanie was discharged on Midodrine 7.5mg tid and 14 days event monitor Lanie will follow up PCP in 3-5 days and with cardiology in 2 weeks. Time Spent with Patient Time attestation: Total time spent providing and/or coordinating discharge services: DS: Data Data Completed and Pending Labs on day of discharge: Labs from last 24 hours 02/11/25 02/11/25 02/11/25 11:38 07:42 04:56 WBC 8.3 RBC 4.65 Hgb 10.3 L Hct 35.0 L MCV 75.3 L MCH 22.2 L MCHC 29.4 L RDW 18.4 H Plt Count 241 MPV 9.6 Immature Gran % (Auto) 0.2 Neut % (Auto) 67.8 Lymph % (Auto) 22.1 [place] % (Auto) 7.5 Eos % (Auto) 1.9 Baso % (Auto) 0.5 Lymph # (Auto) 1.83 [place] # (Auto) 0.6 Eos # (Auto) 0.2 Baso # (Auto) 0.0 Abs Immat Gran (auto) 0.02 Absolute Neuts (auto) 5.6 Absolute Nucleated RBC 0.000 Band Neutrophils % Not Reportable Nucleated RBC % 0.0 Platelet Estimate Adequate Poikilocytosis 1+ Anisocytosis 1+ Microcytosis 1+ Ovalocytes 1+ Carol Cells 1+ Schistocytes None seen Sodium 138 Potassium 3.5 Chloride 108 H Carbon Dioxide 21 L Anion Gap 9 BUN 11 Creatinine 0.61 L Estim Creat Clear Calc 103 Estimated GFR > 60 Glucose 94 POC Capillary Glucose 139 H 96 Calcium 8.5 Magnesium 2.3 Total Bilirubin 0.5 AST 30 ALT 31 Alkaline Phosphatase 75 Total Protein 7.0 Albumin 3.9 02/10/25 02/10/25 20:48 16:42 WBC RBC Hgb Hct MCV MCH MCHC RDW Plt Count MPV Immature Gran % (Auto) Neut % (Auto) Lymph % (Auto) [place] % (Auto) Eos % (Auto) Baso % (Auto) Lymph # (Auto) [place] # (Auto) Eos # (Auto) Baso # (Auto) Abs Immat Gran (auto) Absolute Neuts (auto) Absolute Nucleated RBC Band Neutrophils % Nucleated RBC % Platelet Estimate Poikilocytosis Anisocytosis Microcytosis Ovalocytes [place] Cells Schistocytes Sodium Potassium Chloride Carbon Dioxide Anion Gap BUN Creatinine Estim Creat Clear Calc Estimated GFR Glucose POC Capillary Glucose 119 H 140 H Calcium Magnesium Total Bilirubin AST ALT Alkaline Phosphatase Total Protein Albumin Discharge Plan Discharge Attending physician on discharge: Horace Sorenson Discharging Clinician: Horace Sorenson Anticipated Discharge Date/Time: 02/11/25 15:08 Patient Disposition: Home Activity: as tolerated Diet: as tolerated and heart healthy Discharge Instructions: F/u with cardiology in 2 weeks Patient Instructions: Antibiotic Form Patient Language: Gambian Stand Alone Forms: General Discharge Information Follow-up/Referrals: Kings Ann MD [Physician] - (F/u with cardiology in 2 weeks ) Byron Herring DO [Physician] - (follow up for 14 day event monitor, call Dr Herring's office for appointment) Albert Back MD [Primary Care Provider] - (F/u with PCP in 3-5 days ) Discharge Medications: New midodrine 2.5 mg Tablet 7.5 mg PO TID 30 Days Qty: 270 1RF Continued famotidine 20 mg tablet 20 mg PO HS tramadol 50 mg tablet 50 mg PO Q6H PRN (Reason: pain) Qty: 12 0RF (DME) OneTouch Ultra Test Strip See Rx Instructions .ROUTE .COMPLEX Qty: 100 2RF Dose Instruction: USE TO CHECK GLUCOSE TWICE A DAY FOR DIABETES Rx Instructions: USE TO CHECK GLUCOSE TWICE A DAY FOR DIABETES rosuvastatin 40 mg tablet 40 mg PO DAILY Qty: 90 1RF metformin 500 mg tablet extended release 24 hr See Rx Instructions .ROUTE .COMPLEX Qty: 360 4RF Dose Instruction: TAKE 4 TABLETS BY MOUTH EVERY DAY Rx Instructions: TAKE 4 TABLETS BY MOUTH EVERY DAY alprazolam 0.5 mg tablet 0.5 mg PO QID PRN (Reason: anxiety) Qty: 60 0RF hydroxyzine HCl 10 mg tablet See Rx Instructions .ROUTE .COMPLEX Qty: 30 3RF Dose Instruction: TAKE 1 TABLET (10 MG) BY MOUTH THREE TIMES DAILY, NEEDED FOR PANIC ATTACKS Rx Instructions: TAKE 1 TABLET (10 MG) BY MOUTH THREE TIMES DAILY, NEEDED FOR PANIC ATTACKS sertraline 100 mg tablet See Rx Instructions .ROUTE .COMPLEX Qty: 180 0RF Dose Instruction: TAKE TWO TABLETS BY MOUTH DAILY Rx Instructions: TAKE TWO TABLETS BY MOUTH DAILY Jardiance 25 mg tablet 25 mg PO DAILY Qty: 90 2RF gabapentin 600 mg tablet See Rx Instructions .ROUTE .COMPLEX Qty: 90 0RF Dose Instruction: TAKE 1 TABLET (600 MG) BY MOUTH THREE TIMES A DAY Rx Instructions: TAKE 1 TABLET (600 MG) BY MOUTH THREE TIMES A DAY (DME) lancets [OneTouch Delica Plus Lancet] 30 gauge misc See Rx Instructions .Route Qty: 100 0RF Rx Instructions: Use one lancet twice a day. alcohol swabs [Alcohol Prep Pads] Pads, Medicated 1 pad topical [id number] Qty: 100 2RF Other Ambulatory Orders: [place] cardiac event monitor (Routine) Timeframe: 1 Day Location: Determined by Patient Ordered By: Horace Sorenson Date of admission: 02/08/25 13:55 Primary Care Provider: Albert Back Admitting Provider: Stephen Weaver Attending physician on admission: Stephen Weaver Condition: Stable
== END 2025-02-11 15:48 | disposition home or self-care (01) ==
LOC: ANHED 10:01 → ANH2MED 14:09
PROVIDERS: Admitting Provider Internal Medicine; Emergency Provider Nurse Practitioner Family; PCP Family Medicine; Visit Provider Internal Medicine
DX: I95.1 Orthostatic hypotension (principal); S00.81XA Abrasion of other part of head, initial encounter; W18.39XA Other fall on same level, initial encounter; E11.40 Type 2 diabetes mellitus with diabetic neuropathy, unspecified; I10 Essential (primary) hypertension; E78.5 Hyperlipidemia, unspecified; Z87.891 Personal history of nicotine dependence; Z79.84 Long term (current) use of oral hypoglycemic drugs; Z79.899 Other long term (current) drug therapy
CPT/HCPCS: 36415; 70450; 70486; 71045; 71275; 72125; 80053; 81001; 81025; 82728; 82948; 83540; 83550; 83605; 83735; 84484; 85025; 85380; 85610; 85730; 93005; 93306; 93880; 96361; 96372; 96374; 97110; 97161; 97165; 97530; 99285; A9270; G0378; G0379; J1650; J1815; J1885; J7030; J7040; Q9967

== ENCOUNTER 2025-04-22 09:41 | Outpatient (CLI) | payer OTHER, SELFPAY ==
[2025-04-22 10:49] LABS: Hematocrit 36.0 % (37.0-47.0); Hemoglobin 10.7 g/dL (12.0-15.0); Mean Corpuscular HGB Conc 29.7 g/dl (32-36); Mean Corpuscular Hemoglobin 22.2 pg (26-34); Mean Corpuscular Volume 74.7 fl (80-100); Platelet Count Result 240 k/mm3 (150-375); Red Blood Count 4.82 M/mm3 (4.2-5.4); White Blood Count 8.6 K/mm3 (4.5-10.0)
[2025-04-22 11:06] LABS: Cholesterol 137 mg/dL (0-200); HDL Direct 66 mg/dL; Triglycerides 72 mg/dL (<150)
[2025-04-22 11:07] LABS: Iron 41 ug/dL (37-170)
[2025-04-22 11:16] LABS: Percent Iron Saturation 8 % (20-50)
[2025-04-22 11:42] LABS: Thyroid Stimulating Hormone 2.160 uIU/mL (0.465-4.680)
[2025-04-22 12:01] LABS: Vitamin B12 380.0 pg/mL (239-931)
[2025-04-22 15:10] LABS: MALB Creatinine Ratio 515.2 mg/g (0-30)
[2025-04-23 07:08] LABS: LH 67.7 mIU/mL (.)
[2025-04-23 11:08] LABS: FSH 55.9 mIU/mL (.)
[2025-04-24 22:08] LABS: Estrogens, Total 65 pg/mL (.)
[2025-04-28 14:08] LABS: Estradiol, Sensitive <2.5 pg/mL (.)
== END 2025-04-22 09:42 | disposition home or self-care (01) ==
LOC: ANHLAB 09:43
PROVIDERS: PCP Family Medicine; Visit Provider Nurse Practitioner Family
DX: E78.5 Hyperlipidemia, unspecified (principal); E11.69 Type 2 diabetes mellitus with other specified complication; E55.9 Vitamin D deficiency, unspecified; D64.9 Anemia, unspecified; N91.2 Amenorrhea, unspecified; G47.00 Insomnia, unspecified
CPT/HCPCS: 36415; 80061; 82043; 82306; 82607; 82670; 82672; 83001; 83002; 83540; 83550; 84144; 84443; 85027

== ENCOUNTER 2025-06-07 12:12 | Outpatient (CLI) | payer OTHER, SELFPAY ==
--- OUTSIDE RECORDS SUMMARY | 2025-06-07 11:30 | XMS_ITS | Encounter Summary ---
Author Organization [facility] Address [address] [place] [address] Care Team Providers Care Lcpc Name Role Phone Unavailable Primary Care Provider Unavailabl e Reason for Referral * (Routine) - Open Specialty Diagnoses / Procedures Referred By Contac t Referred To Contact Gastroenterology Diagnoses Iron deficiency anemia, unspecified iron deficiency anemia type Procedures MD OFFICE/OUTPATIENT ESTABLISHED MOD MDM 30 MIN MD OFFICE/OUTPATIENT NEW MODERATE MDM 45 MINUTES Brittany Rubin MD [address] [place] [address] Phone: tel: fax: Referral ID Status Reason Start Date Expiration Date Visits Re quested Visits Authorized [id number] Open 06/07/2025 06/07/2026 1 1 Scheduling Instructions Iron Deficiency anemia Encounter Details Date Type Department Care Team (Late st Contact Info) Description 06/07/2025 11:30 AM CDT Office Visit [facility] Oncology and Hematology - [place] [address] [place] [address] Brittany Rubin MD [address] [place] [address] Iron deficiency anemia, unspecified iron deficiency anemia type (Primary Dx) Social History Tobacco Use Types Packs/Day Years Used Date Smoking Tobacco: Former Cigarettes 2 25 1 - 06/26/2013 Smokeless Tobacco: Never Tobacco Cessation:Counseling Given: Not Answered Alcohol Use Standard Drinks/Week Comments Never 0 (1 standard drink = 0.6 oz pur e alcohol) Comments Unknown Sex and Gender Information Value Date Recorded Sex Assigned at Not on file Legal Sex Female 3:03 PM CDT Gender Identity Not on file Sexual Orientation Not on file documented as of this encounter Last Filed Vital Signs Vital Sign Reading Time Taken Comments Blood Pressure 133/81 06/07/2025 11:34 AM CDT Pulse 73 06/07/2025 11:34 AM CDT Temperature 36.1 C (96.9 F) 06/07/2025 11:34 AM CDT Respiratory Rate 16 06/07/2025 11:34 AM CDT Oxygen Saturation 96% 06/07/2025 11:34 AM CDT Inhaled Oxygen Concentration - - Weight 84.9 kg (187 lb 3.2 oz) 06/07/2025 11:34 AM CDT Height 162.6 cm (5' 4) 06/07/2025 11:34 AM CDT Body Mass Index 32.13 06/07/2025 11:34 AM CDT documented in this encounter Plan of Treatment Upcoming Encounters Date Type Department Care Team (Late st Contact Info) Description 07/08/2025 4:30 PM CDT Telephone Check Up [facility] Oncology and Hematology - [place] [address] [facility] [address] [address] Omid Ward MD [address] [facility] [address] [place] [address] Scheduled Orders Name Type Priority Associated Diagnoses Orde r Schedule CBC WITH DIFFERENTIAL Lab Stat Iron deficiency anemia, unspecified iron deficiency anemia type Expected: 06/07/2025, Expires: 06/07/2026 COMPREHENSIVE METABOLIC PANEL Lab Stat Iron deficiency anemia, unspecified iron deficiency anemia type Expected: 06/07/2025, Expires: 06/07/2026 FERRITIN Lab Routine Iron deficiency anemia, unspecified iron deficiency anemia type Expected: 06/07/2025, Expires: 06/07/2026 IRON, TIBC, AND PERCENT SATURATION Lab Routine Iron deficiency anemia, unspecified iron deficiency anemia type Expected: 06/07/2025, Expires: 06/07/2026 TRANSFERRIN RECEPTOR TFR SOLUBLE Lab Routine Iron deficiency anemia, unspecified iron deficiency anemia type Expected: 06/07/2025, Expires: 06/07/2026 VITAMIN B12 AND FOLATE Lab Routine Iron deficiency anemia, unspecified iron deficiency anemia type Expected: 06/07/2025, Expires: 06/07/2026 Scheduled Referrals Name Type Priority Associated Diagnoses Order Schedule AMB REFERRAL TO GASTROENTEROLOGY Outpatient Referral Routine Iron deficiency anemia, unspecified iron deficiency anemia type Ordered: 06/07/2025 documented as of this encounter Visit Diagnoses Diagnosis Iron deficiency anemia, unspecified iron deficiency anemia type- Primary documented in this encounter
[2025-06-07 12:28] LABS: Hematocrit 40.5 % (37.0-47.0); Hemoglobin 12.4 g/dL (12.0-15.0); Immature Granulocyte Percent A 0.2 % (0-0.5); Lymphocytes Absolute Auto 2.06 K/mm3 (0.9-3.2); Mean Corpuscular HGB Conc 30.6 g/dl (32-36); Mean Corpuscular Hemoglobin 24.2 pg (26-34); Mean Corpuscular Volume 79.1 fl (80-100); Nucleated Red Blood Cells Absolute Auto 0.000 K/mm3 (0.0-0.012); Nucleated Red Blood Cells Perc 0.0 % (0.0-0.2); Platelet Count Result 246 k/mm3 (150-375); Red Blood Count 5.12 M/mm3 (4.2-5.4); White Blood Count 8.6 K/mm3 (4.5-10.0)
--- OUTSIDE RECORDS SUMMARY | 2025-06-07 13:11 | XMS_ITS | Clinical Summary ---
Author Organization [facility] [place] Address [address] [place] [address] Care Team Providers Care Field Marketing Associate Name Role Phone Unavailable Primary Care Provider Unavailabl e Allergies Active Allergy Reactions Criticality Noted Date Comments Codeine Nausea and Vomiting Low 02/12/2025 Medications rosuvastatin (CRESTOR) 40 mg tablet Take 40 mg by mouth. 11/11/2024 Active metFORMIN (GLUCOPHAGE XR) 500 mg Extended Release 24 hour tablet Take 1,000 mg by mouth 2 times daily with meals. 11/17/2024 Active empagliflozin (JARDIANCE) 25 mg tablet Take 25 mg by mouth daily in the morning. 01/25/2025 Active gabapentin (NEURONTIN) 600 mg tablet Take 600 mg by mouth 3 times daily. 02/24/2025 Active midodrine (PROAMATINE) 2.5 mg Tablet Take 2.5 mg by mouth every 8 hours. 02/12/2025 Active sertraline (ZOLOFT) 100 mg tablet Take 100 mg by mouth 2 times daily. 01/09/2025 Active famotidine (PEPCID) 20 mg tablet Take 20 mg by mouth daily. 06/13/2024 Active ALPRAZolam (XANAX) 0.5 mg tablet Take 0.5 mg by mouth 4 times daily. 12/27/2024 Active clindamycin HCL (CLEOCIN) 300 mg Capsule Take 300 mg by mouth 4 times daily. Active ferrous sulfate 325 mg (65 mg iron) tablet Take 325 mg by mouth daily. Active Active Problems Problem Noted Date Diagnosed Date Iron deficiency anemia 06/07/2025 Encounters Date Type Department Care Team Description 06/07/2025 11:30 AM CDT Office Visit [facility] Oncology and Hematology - [place] [address] [place] [address] Brittany Rubin MD Iron deficiency anemia, unspecified iron deficiency anemia type (Primary Dx) from Last 3 Months Family History Medical History Relation Name Comments No Known Problems Brother 1 Diabetes Brother 2 No Known Problems Brother 3 No Known Problems Child 1 No Known Problems Child 2 Diabetes Father COPD Mother Relation Name Status Comments Brother 1 Alive Brother 2 Alive Brother 3 Child 1 Alive Child 2 Alive Father Alive Mother Social History Tobacco Use Types Packs/Day Years [...] on file Sexual Orientation Not on file Last Filed Vital Signs Vital Sign Reading [...] Mass Index 32.13 06/07/2025 11:34 AM CDT Plan of Treatment Upcoming Encounters Date Type Department Care Team (Late st Contact Info) Description 07/08/2025 4:30 PM CDT Telephone Check Up [facility] - [place] [address] [facility] [address] [address] [place] [address] Omid Ward MD [address] [facility] [address] [place] [address] Health Maintenance Due Date Last Done Comments DTAP/TDAP/TD VACCINES (1 - Tdap) 1993 HEPATITIS B VACCINES (1 of 3 - 19+ 3-dose series) 06/27 Preventative Visit-Managed Medicaid 1993 HPV/Cotest (21-29) 1995 CERVICAL CANCER SCREENING 2004 HPV/Cotest (30-65) 2004 PAP SMEAR 2004 BREAST CANCER SCREENING 2014 COLORECTAL SCREENING 2019 Colorectal Cancer Screening 2019 FIT-DNA Q 3 years 2019 FIT/FOBT Q 1 year 2019 Flex Sig/CT Colonography Q 5 years 2019 ZOSTER VACCINE (1 of 2) 2024 INFLUENZA VACCINE (#1) 2025 Insurance
[2025-06-07 14:14] LABS: Iron 67 ug/dL (37-170)
[2025-06-07 14:16] LABS: Alanine Aminotransferase 27 U/L (6-35); Albumin Level 4.7 g/dL (3.5-5.1); Alkaline Phosphatase 74 U/L (38-126); Anion Gap 10 mmol/L (4-12); Aspartate Amino Transferase 26 U/L (14-36); Bilirubin,Total 0.4 mg/dL (0.2-1.3); Blood Urea Nitrogen 13 mg/dL (7-17); Calcium 9.6 mg/dL (8.4-10.2); Carbon Dioxide 29 mmol/L (22-30); Chloride 102 mmol/L (98-107); Estimated Glomerular Filt Rate > 60; Glucose 184 mg/dL (65-110); Potassium 3.9 mmol/L (3.4-5.0); Sodium 141 mmol/L (137-145); Total Protein 8.2 g/dL (6.3-8.2)
[2025-06-07 14:24] LABS: Percent Iron Saturation 14 % (20-50)
[2025-06-07 14:56] LABS: Ferritin 6.03 ng/mL (11.1-264)
[2025-06-07 15:31] LABS: Vitamin B12 369.0 pg/mL (239-931)
== END 2025-06-07 12:13 | disposition home or self-care (01) ==
LOC: ANHLAB 12:13
PROVIDERS: PCP Family Medicine; Visit Provider Internal Medicine Hematology & Oncology
DX: D50.9 Iron deficiency anemia, unspecified (principal)
CPT/HCPCS: 36415; 80053; 82607; 82728; 82746; 83540; 83550; 84238; 85025

== ENCOUNTER 2025-07-23 00:37 | Day surgery (SDC) | payer OTHER, SELFPAY ==
--- OUTSIDE RECORDS SUMMARY | 2009-12-26 05:30 | XMS_ITS | Continuity of Care Document ---
Author Organization [facility] Address [address] [place] [address] [facility] [address] [place] [address] Phone Care Team Providers Care Search Engine Marketing Manager Name Role Phone Sondra Ryne Unavailable Unavailable Procedures Procedure Date Office/outpatient Visit, [facility] Advance Directives Directive Yes / No Effective Date File Name No Information Encounters Encounter Description Practice Location Reason(s) For Visit Diagnoses Date Provider Providers Copied on Encounter Office/outpa tient Visit, [facility], [address], [place], [place], [id number], [place] tel:[phone] [facility] No Information 2-201 0 Sondra Zuñigahil. [address] [facility] [address], [place], [address], [place]. tel:[phone] Referring Provider: Albert Back MD , [address] [place], [address]. tel:[phone] Family History Family Member Type Diagnosis Age At Onset No Information Payers Payer name Insurance type Covered alliance party ID Authoriza tion(s) Medicaid [facility] [id number] Social History Type Description Quantity Date Captured Comments Sex Female Smoking Status No Information Chief Complaint And Reason For Visit No Information Reason For Referral Reason For Referral No Information History Of Present Illness Encounter Date Complaint History Of Prese nt Illness No Information Functional Status Date Functional Assessmen t No Information Instructions Date Instruction Additional Infor mation No Information Assessments Type Assessment Date No Information Patient Care Teams Name Effective Dates (start - stop) Status Members No Information
[2025-07-15 12:17] VITALS: BMI 31.8
--- OUTSIDE RECORDS SUMMARY | 2025-07-23 00:39 | XMS_ITS | Data Portability ---
Author Organization [facility] [place], Main Office Address [address] [place] [address] Care Team Providers Care Space Operations Name Role Phone ROSELYN PARRISH Primary Care Provider [phone] ROSELYN PARRISH Referring Provider [phone] Assessment Encounter Date Assessment Date Assessment LastModified by Organization Details LastModified Time 02/28/2023 02/28/2023 This note is dictated and transcribed by [employer]. Editor News variances may occur. Despite proofreading, typographical errors [...] more view No observ ation record ed. [id number] _[facility] Podiatry [place] [address] [facility] [address], [place], [address], 11/25/2022 01:54:54 11/08/19 23 11/08/2022 XR, ankle , 3 or more view [facility] [place] [address], [place] [address] Patien t Name: JOSÉ GARDUNO ER Access ion #: [id number] Sex: F : 1974 3 Locati [...] 2 [facility] t Name: JOSÉ GARDUNO ER Access ion #: [id number] Sex: F : 1974 3 Exam [...] Berenice hutson on 2022 at 11:10 a.m. GUIDE DELEGATE. Create d and electr onical ly signed by: Marvin morgan MD Signed Date: 11:13 AM (CT) Dictat ed by: Marvin morgan MD DD: 11:13 AM (CT) DT: 11:13 AM (CT) Page 2 of 2 [id number] [facility] (Im[facility]) [address] [place], [address], 11/25/2022 01:54:54 11/10/19 23 11/10/2022 NM, bone scan, limit ed [facility] [address] [place] [address] Patien t Name: JOSÉ GARDUNO ER Access ion #: [id number] Sex: F : 1974 3 1 [...] sed radiot racer Page 1 of 2 [facility] Patien t Name: JOSÉ GARDUNO ER Access ion #: [id number] Sex: F : 1974 3 1 Exam Date: 9:44 AM Exam Name: NM [...] MD DD: 023 1:25 PM (CT) DT: 1:25 PM (CT) Page 2 of 2 [id number] [facility] ([facility] [address] [place], [address], 11/25/2022 01:54:54 Result Notes Documentation Provider Name and Address Organization Details Recorded Time Xr, Ankle, 3 Or More View : [facility] [address] [place] [address] Patient Name: KELLI GARDUNO Sex: F : 1975 Location: [facility] Attending Physician: Ordering Physician: OVIDIO DIAS Exam Date: 11/08/2022 11:04 AM Exam Name: XR ANKLE RT 3V+ Admitting Diagnosis(es): RADIOLOGY REPORT - FINAL EXAM: XR ANKLE RT 3V+ HISTORY: rt ankle sprain/possible old fx 47-year-old female with right distal fibular expansile lesion, no history of fracture. COMPARISON: None available. TECHNIQUE: Three views of the right ankle were performed. FINDINGS: No acute fracture is identified about the right ankle. There is cortical irregularity and bony expansion involving the distal fibular metaphyseal-diaphyseal junction with narrow zone of transition and smooth cortical margins. The mortise is intact. There are calcifications between the distal fibula and talus. There is a plantar calcaneal bone spur Page 1 of 2 [facility] Patient Name: KELLI GARDUNO Sex: F : 1975 Exam Date: 11/08/2022 11:04 AM Exam Name: XR ANKLE RT 3V+ Admitting Diagnosis(es): measuring 9 mm length. There is a tiny Achilles insertion enthesophyte. Os peroneum is incidentally noted. There is a small bone spur projecting dorsally from the talar neck. IMPRESSION: 1. No acute fracture of the right ankle. 2. Irregularity and intramedullary expansion of the right distal fibular metaphyseal-diaphyseal junction is likely related to old fracture, less likely sequela of simple bone cyst or aneurysmal bone cyst with subsequent pathologic fracture and healing. Findings were discussed with Dr. Dias on 11/08/2022 at 11:10 a.m. GUIDE DELEGATE. Created and electronically signed by: Marvin Michele MD Signed Date: 11/08/2022 11:13 AM (CT) Dictated by: Marvin Michele MD (CT) (CT) Page 2 of 2 Not Available [facility] 11/25/2022 01:54:55 Nm, Bone Scan, Limited : [address] [address] Patient Name: KELLI GARDUNO Sex: F : 1975 Location: RAD Attending Physician: OVIDIO DIAS Ordering Physician: OVIDIO DIAS Exam Date: 11/10/2022 9:44 AM Exam Name: NM BONE / JOINT LIMITED Admitting Diagnosis(es): RADIOLOGY REPORT - FINAL EXAM: NM BONE / JOINT LIMITED HISTORY: aneurysmal bone cyst, right ankle and foot 47-year-old female with right distal fibular expansile lesion, bone cyst versus old posttraumatic deformity; history of multiple right ankle injuries and right foot pain. COMPARISON: Radiographs dated 11/08/2022. TECHNIQUE: 25 mCi Technetium-99m MDP were administered intravenously, followed by planar delayed scintigraphic images of the bilateral feet and ankles. FINDINGS: There is mild increased radiotracer uptake in the right distal fibula. There is mild focal increased uptake in the left distal fibula. There is focal increased uptake in the right distal tibia. There is increased radiotracer Page 1 of 2 [facility] Patient Name: KELLI GARDUNO Sex: F : 1975 Exam Date: 11/10/2022 9:44 AM Exam Name: NM BONE / JOINT LIMITED Admitting Diagnosis(es): uptake in the right midfoot, greater laterally. IMPRESSION: 1. Mild increased radiotracer uptake in the right distal fibula, likely reflective of healing fracture or old bone cyst, less uptake than expected for infection or neoplasm. 2. Increased uptake in the right distal tibia and midfoot may be due to degenerative changes or posttraumatic etiology. There are no findings on recent radiographs of the right foot and ankle to correlate with this uptake. This appearance may be due to an early arthropathic process that is radiologically occult at this time. Created and electronically signed by: Marvin Michele MD Signed Date: 11/10/2022 1:25 PM (CT) Dictated by: Marvin Michele MD (CT) (CT) Page 2 of 2 Not Available [facility] 11/25/2022 01:54:55 Problems Name Problem SNOMED Code Status Onset Date Resolution Date Notes Provider Name and Address Organization Details Recorded Time Aneurysmal bone cyst of right ankle 2873386242133 9102 Active 2022 Not Available [facility] 3 01:54:02 Foot callus 265416830 Active 2022 Not Available [facility] 3 01:54:03 Soft tissue lesion of foot region 008189058 Active 2022 Not Available [facility] 3 01:54:03 Pain in right foot 0004961006012 07 Active 2022 Not Available [facility] 3 01:54:03 Fissure in skin 16565922 Active 2022 Ovidio Dias DPM [address], [place], [address] , [employer] 3 15:43:57 Diabetic peripheral neuropathy 150672830 Active 2022 Ovidio Dias DPM [address], [place], [address] , [employer] 3 09:48:28 Problem Notes None recorded. Procedures Surgical History Date Name Laterality Status Provider Name and Address Organization Details Recorded Time 06/06/2023 Callus Debridement , One completed Ovidio Dias DPM [address], [place], [address], [employer] 06/06/2023 14:37:32 02/28/2023 Callus Debridement , One completed Ovidio Dias DPM [address], [place], [address], [employer] 02/28/2023 09:48:12 11/29/2022 Callus Debridement , One completed Ovidio Dias DPM [address], [place], [address], [employer] 11/29/2022 15:43:47 Imaging Results None recorded. Procedure Notes None recorded. Medical Equipment None [...] Not Available Not Available No t Available [employer] Ultra Test strips USE TO TEST BEFORE [...] Not Available Not Available No t Available [employer] Ultra2 Meter USE DIRECTED active Not Available [...] Heart rate Respiratory rate Body weight Systolic And Diastolic Provider Name and Address Organization Details Last Updated DateTime 3 32.6 kg/m2 162.56 cm 98 % 98 % 81 /min 18 /min 90603.5 5 g 138/70 mm[Hg] Not Available [facility] 3 01:53:30 Date Recorded Body height Body mass index (BMI) Body weight Heart rate Respiratory rate Body temperature Oxygen saturation Oxygen saturation in Arterial blood by Pulse oximetry Systolic And Diastolic Provider Name and Address Organization Details Last Updated DateTime 3 162.56 cm 32.6 kg/m2 18724.5 5 g 80 /min 16 /min 97.4 [degF] 98 % 98 % 138/70 mm[Hg] France Orta [employer] 3 15:12:18 Date Recorded Body height Body mass index (BMI) Body weight Heart rate Respiratory rate Oxygen saturation Oxygen saturation in Arterial blood by Pulse oximetry Systolic And Diastolic Provider Name and Address Organization Details Last Updated DateTime 3 162.56 cm 32.6 kg/m2 35209.5 5 g 87 /min 14 /min 98 % 98 % 132/70 mm[Hg] Lexus Cote [employer] 3 09:24:33 Date Recorded Body height Body mass index (BMI) Body weight Heart rate Respiratory rate Body temperature Oxygen saturation Oxygen saturation in Arterial blood by Pulse oximetry Systolic And Diastolic Provider Name and Address Organization Details Last Updated DateTime 3 162.56 cm 32.6 kg/m2 50703.5 5 g 76 /min 16 /min 97.6 [degF] 97 % 97 % 120/80 mm[Hg] [place] You [facility] 11:36:54 Social History Question Answer Notes LastModified by [employer] Details LastModified Time Tobacco Smoking Status Former Smoker Not Available [facility] 11/25/2022 01:52:43 If You Are , What Was Your Level Of Alcohol Consumption Prior To ? None [id number] Information not available 11/25/2022 What Is Your Level Of Caffeine Consumption? Occasional [id number] Information not available 11/25/2022 What Was The Date Of Your Most Recent Tobacco Screening? 11/08/2022 [id number] Information not available 11/25/2022 Have You Ever Been Counseled For Unhealthy Alcohol Use? No [id number] Information not available 11/25/2022 Has Tobacco Cessation Counseling Been Provided? No [id number] Information not available 11/25/2022 Sex: Unknown Functional Status Question Answer Note LastModified by [employer] Details LastModified Time Do you use any illicit or recreational drugs? No [id number] Information not available 11/25/2022 Do you or have you ever used any other forms of tobacco or nicotine? No [id number] Information not available 11/25/2022 What is your level of alcohol consumption? Occasional [id number] Information not available 11/25/2022 Mental Status None recorded. Family History Relationship Description Onset Age of this Age Resolved Age Notes LastModified by Organization Details LastModified Time Unspecified Relation Diabetes mellitus [id number] Not available 11/25/2022 01:53:06 Unspecified Relation Family history of stroke [id number] Not available 11/25/2022 01:53:06 Unspecified Relation Arthritis [id number] Not available 11/25/2022 01:53:07 Medical History Condition Response HIGH CHOLESTEROL / HYPERLIPIDEMIA Y OBESITY Y ARTHRITIS Y DIABETES, TYPE Y NEUROPATHY Y Gynecological HistoryNo gynecological history recorded. Obstetrics History GPAL:G 0 P 0 0 0 0 Past Encounters Encounter ID Performer Location Encounter Start Date Encounter Closed Date Diagnosis/Indication Diagnosis SNOMED-CT Code Diagnosis ICD10 Code Diagnosis IMO Codes Diagnosis Note [id number] Ovidio Dias DPM [facility] Pod[facility] [place] [address] [place] [address] 11/08/2022 00:00:00 11/08/2022 12:55:[id number] [facility] [place] [address] [facility] [address] [place] [address] 11/29/2022 15:02:00 11/30/2022 14:42:26 Aneurysmal bone cyst of right ankle 2067995111 9608883 M85.571 reviewed testingFol low-up x-rays in 3 months Fissure in skin 85200222 R23.4 debrided without incidentof floading to prevent recurrentR ecommend use of lotion dailyAnd recommend use of pumice stoneFollo w-up 2-3months Foot callus 040640146 L8 4 debrided without incidentas above [id number] Ovidio Dias DPM [facility] Podiatry [place] [address] [place] [address] 02/28/2023 09:10:37 02/28/2023 10:10:01 Foot callus 004426155 L84 right foot sub 5th metatarsal headcontin ue topical urea lotion and pumice stone daily to prevent builduprec ommend diabetic shoes and inserts Diabetic p eripheral neuropathy 087059443 E11.40 Patient educated on neuropathy , diabetes, diabetic diet, and daily foot exams. Patient is to check feet daily for new wounds, blisters, redness to prevent infection and ulceration s to the feet. Patient will return to clinic in 3 months for diabetic foot workup.Rx diabetic shoes and inserts [id number] Ovidio Dias DPM [facility] Podiatry [place] [address] [place] [address] 06/06/2023 11:21:25 06/20/2023 11:48:39 Diabetic peripheral neuropathy 372552665 E11.40 Patient educated on neuropathy , diabetes, diabetic diet, and daily foot exams. Patient is to check feet daily for new wounds, blisters, redness to prevent infection and ulceration s to the feet. Patient will return to clinic in 3 months for diabetic foot workup.Rx diabetic shoes and inserts Foot callus 013287690 L8 4 right foot sub 5th metatarsal headcontin ue topical urea lotion and pumice stone daily to prevent build uprecommen d diabetic shoes and inserts Pain in right foot 52126 90492 10233 M79.671 recommend supportive shoe gear Health Concerns Section Related Observation LastModified by Organization Detai ls LastModified Time None Recorded Concern Status LastModified by Organization Details LastModified Time None Recorded Advance Directives Directive None Recorded Payers Insurance Date Sequence Insurance Name Policy Number Policy Neves Covered Member ID Neves Member ID Guarantor Name 09/02/2023 1 [facility] - DOS ON OR AFTER 21 (MEDICAID REPLACEMENT - HMO) Kelli Garduno [id number] Kelli Garduno Notes Date Note Type Note [...] Patient denies any other pedal complaints. Ovidio Dias DPM [address], [place], [address], [facility] [place] [employer] [facility] 11/29/2022 15:55:56 02/28/2023 text/html . Patient is [...] feet. Patient denies any other issues. Ovidio Dias DPM [address], [place], [address], [facility] [employer] 02/28/2023 09:49:27 06/06/2023 text/html . Patient is [...] to present seek medical attention immediately. Ovidio Dias DPM [address] [facility] [address], [place], [address], [employer] [facility] 06/17/2023 12:25:41 OBGyn Episode No OBEpisode recorded.
--- OUTSIDE RECORDS SUMMARY | 2025-07-23 00:39 | XMS_ITS | Clinical Summary ---
Author Organization [facility] [place] Address [address] [place] [address] Care Team Providers Care Regulatory Law Specialist Name Role Phone Unavailable Primary Care Provider [...] Encounters Date Type Department Care Team Description 07/16/2025 External Device Data STL ABSTRACTION Provider, Abstract 07/08/2025 4:30 PM CDT Telephone Check Up [facility] Oncology and Hematology - [place] [address] [place] [address] Omid Ward MD Iron deficiency anemia, unspecified iron deficiency anemia type (Primary Dx); Vitamin B12 deficiency (non anemic) 06/13/2025 Orders Only [facility] Oncology and Hematology [facility] [address] [place] [address] Omid Ward MD 06/12/2025 External Device Data STL ABSTRACTION Provider, Abstract 06/11/2025 External Device Data STL ABSTRACTION Provider, Abstract 06/11/2025 External Device Data STL ABSTRACTION Provider, Abstract 06/10/2025 Orders Only [facility] Oncology and Hematology [facility] [address] [place] [id number] Omid Ward MD 06/07/2025 11:30 AM CDT Office Visit [facility] Oncology and [facility] [address] [place] [address] Brittany Rubin MD Iron deficiency anemia, unspecified [...] Care Team (Late st Contact Info) Description 11/14/2025 11:00 AM PIPE FITTER APPRENTICE Office Visit [facility] Oncology and Hematology - [place] [address] [facility] [address] [place] [address] Omid Ward MD [address] [facility] [employer] [address] [place] [address] Health Maintenance Due Date Last Done Comments DIABETES ANNUAL FOOT EXAM 1992 DIABETES ANNUAL RETINAL EXAM 1992 DIABETES HBA1C Q 6 MONTHS 1992 DIABETES MICROALBUMIN ANNUAL SCREEN 1992 LDL CHOLESTEROL ANNUAL 1992 DTAP/TDAP/TD VACCINES (1 - Tdap) 1993 HEPATITIS B VACCINES (1 of 3 - 19+ 3-dose series) 06/27 HPV/Cotest (21-29) 1995 CERVICAL CANCER SCREENING 2004 HPV/Cotest (30-65) 2004 PAP SMEAR 2004 BREAST CANCER SCREENING 2014 COLORECTAL SCREENING 2019 Colorectal Cancer Screening 2019 FIT-DNA Q 3 years 2019 FIT/FOBT Q 1 year 2019 Flex Sig/CT Colonography Q 5 years 2019 Lung Cancer Screening 2024 ZOSTER VACCINE (1 of 2) 2024 INFLUENZA VACCINE (#1) 2025 Procedures Procedure Name Priority Date/Time Associated Diagnosis Comments COMPREHENSIVE METABOLIC PANEL Routine 06/07/2025 1:01 PM CDT CBC WITH AUTODIFFERENTIAL Routine 2024 12:51 PM CDT CHG SOLUBLE TRANSFERRIN RECEPTOR Routine 06/07/2025 11:40 AM CDT from Last 3 Months Results * COMPREHENSIVE METABOLIC PANEL (06/07/2025 1:01 PM CDT) Blood us Omid Ward MD CHEMISTRY ORDERABLES Final Resu lt * CBC WITH AUTODIFFERENTIAL (06/07/2025 12:51 PM CDT) Blood us Omid Ward MD HEMATOLOGY ORDERABLES Final Res ult * CHG SOLUBLE TRANSFERRIN RECEPTOR (06/07/2025 11:40 AM CDT) us Omid Ward MD [facility] - LABORATORY Final Result from Last 3 Months Insurance
[2025-07-23 12:44] VITALS: BP 116/79; PULSE 89; RESP 18; TEMP 36.1; O2SAT 100
--- NOTE | 2025-07-23 12:47 | WPDANESEPPF ---
Anes - Initial Pre Proc Eval Procedure: Operation Date: 07/23/25 13:30 Proposed Procedures p Diagnostic Colonoscopy - Moris Tucker MD Date/Time: 07/23/25 12:47 Surgeon: Moris Tucker MD Pre Op Diagnosis: Iron deficiency anemia, unspecified Patient Data Age: 50 Gender: F Height: 1.63 m Weight: 82.9 kg Last Vital Signs Temp 97 F L 07/23/25 12:44 Pulse 89 07/23/25 12:44 Resp 18 07/23/25 12:44 BP 116/79 07/23/25 12:44 Pulse Ox 100 07/23/25 12:44 O2 Del Method Room Air 07/23/25 12:44 Allergies Allergy/AdvReac Type Severity Reaction Status Date / Time codeine AdvReac Mild Nausea Verified 07/23/25 12:42 GLP-1 AdvReac Severe gastroperes Uncoded 05/02/25 08:43 is Home Medications ?Medication ?Instructions ?Recorded ?Confirmed ?Type metformin 500 mg tablet,extended See Rx Instructions .Route 11/17/24 07/23/25 Rx release 24 hr .COMPLEX #360 tabs empagliflozin 25 mg tablet 25 mg PO DAILY #90 tabs 01/25/25 07/23/25 Rx (Jardiance) blood-glucose sensor (FreeStyle #2 ea 04/15/25 07/18/25 Rx Ant 3 Plus Sensor device) cholecalciferol (vitamin D3) 125 125 mcg PO DAILY #90 caps 04/23/25 07/23/25 Rx mcg (5,000 unit) capsule ferrous sulfate 325 mg (65 mg 325 mg PO DAILY #90 tabs 04/23/25 07/18/25 Rx iron) tablet blood-glucose meter #1 ea 04/25/25 07/18/25 Rx pen needle, diabetic 32 gauge x #100 ea 05/06/25 07/18/25 Rx 3/16 (Comfort EZ Pen [place]) rosuvastatin 40 mg tablet 40 mg PO DAILY #90 tabs 05/09/25 07/23/25 Rx blood sugar diagnostic (OneTouch #200 ea 05/11/25 07/18/25 Rx Ultra Test strips) hydroxyzine HCl 10 mg tablet See Rx Instructions .Route 05/11/25 07/23/25 Rx .COMPLEX #30 tabs lancets 30 gauge (OneTouch Delica #200 ea 05/11/25 07/18/25 Rx Plus Lancet) alcohol swabs (Alcohol Prep Pads) 1 pad topical 4-6XD #100 ea 06/05/25 07/18/25 Rx famotidine 20 mg tablet See Rx Instructions .Route 07/10/25 07/23/25 Rx .COMPLEX #90 tabs sertraline 100 mg tablet See Rx Instructions .Route 07/10/25 07/23/25 Rx .COMPLEX #180 tabs alprazolam 0.5 mg tablet 0.5 mg PO QID PRN anxiety #60 tabs 07/11/25 07/18/25 Rx midodrine 2.5 mg tablet 7.5 mg (3 x 2.5 mg) PO TID 30 days 07/14/25 07/23/25 Rx #270 tabs gabapentin 600 mg tablet See Rx Instructions .Route 07/15/25 07/23/25 Rx .COMPLEX #90 tabs insulin glargine 100 unit/mL (3 20 unit (0.2 mL) subcut QPM #15 mL 07/18/25 07/23/25 Rx mL) subcutaneous pen (Lantus Solostar U-100 Insulin) meloxicam 7.5 mg tablet 7.5 mg PO DAILY #30 tabs 07/18/25 07/23/25 Rx Patient hx anesthesia problems: none Family hx anesthesia problems: none Results Review: All pre-operative results and documents have been reviewed as part of the pre-operative evaluation. [facility] Past Medical History Medical History Diabetic foot Lesion of bone of left lower leg Calf pain Abscess Tachycardia Ankle swelling Finger pain, right Localized swelling, mass and lump, right upper limb Syncope Hypokalemia Screening for breast cancer Fibular abnormality BMI 34.0-34.9,adult Abrasion of knee, left Ataxia Constipation Diabetes mellitus Nausea & vomiting Diabetes mellitus Vitamin D deficiency Callus of foot Open wound of plantar aspect of foot Hypotension Anemia Weight loss Hyponatremia Neuropathy Hives Anxiety Essential (primary) hypertension Hyperlipidemia Type 2 diabetes mellitus without complications Surgical History Surgical History H/O endoscopy No pertinent past surgical history Family History Family History Grandparent Cerebrovascular accident Family history of lung cancer Diabetes mellitus Father No problems noted. Mother COPD (chronic obstructive pulmonary disease) Emphysema lung Sibling No problems noted. Social History Social History Social History: Patient lives with her Laz who will be her surrogate. She has 2 boys and wishes to be a full code at this time. Patient also has 2 cats at home Smoking packs per day: 2 Smoking cigarettes per day: 40.0 Years smoked: 30 Smoking pack-years: 60.00 Smoking status: Former smoker Tobacco type: cigarettes Second hand tobacco smoke exposure: No Additional smoking assessment comments: Quit about 12 years ago Alcohol intake: never Substance use: current Substance use type: marijuana Other substance usage details: smoking, 4x per week Last use: 02/07/25 Do You Feel Safe in your Home?: Yes Lack of Transportation: No Lack of Food: Never True Current Housing: I Have Housing Concerned About Future Housing: No Difficulty Paying Gas/Electric Bills: No Difficulty Paying for Meds: No Currently Unemployed: No Education: High School Diploma/GED Difficulty w/ Childcare or Family Care: Decline to Answer Living arrangements: with family Additional living arrangements comments: Occupation/Education: unemployed Additional occupation/education comments: House Gender identity (if verbalized by the patient): Female Sexual Orientation (if Verbalized by the Patient): Straight or Heterosexual Spiritual care concerns: No Agree to blood products: Yes Anes - Eval Final PreProcedure Day of Procedure 07/23/25 12:47 Patient weight: obese Lungs: normal air movement Airway: Mallampati scale class II and special considerations (Very poor condition, teeth missing on top, bottom teeth in poor condition. ) Neurological: alert and oriented Last oral intake: >/= 8 hours ASA classification: III Emergent: no Anesthetic plan: proceed Anesthesia type and monitoring: general GIVS and standard monitoring Results Review: All pre-operative results and documents have been reviewed as part of the pre-operative evaluation. HTN, BMI 31, Hyperlipidemia. Informed Consent: The patient's anesthetic plan and its attendant risks and benefits were discussed with the patient/family/POA. Questions were solicited and answers provided to the satisfaction of the patient/family/POA.
[2025-07-23] MEDS: LACTATED RINGERS 1,000 ML 150 ML IV CONT (12:54)
--- NOTE | 2025-07-23 12:55 | SUR.PREOP ---
PT HAS HAD ONE PERIOD IN LAST TWO YEARS, HAS HAD LAB WORK THAT SHOWS SHE IS IN MENOPAUSE, DR DEL TORO NOTIFIED, ORDER RECEIVED TO WAIVE TEST.
--- NOTE | 2025-07-23 13:17 | PM.HPGS ---
History of Present Illness History of Present Illness Consent: Risks, benefits, and alternatives have been discussed and questions answered. Patient agrees to proceed with procedure. Chief complaint: Iron deficiency anemia, unspecified Narrative: Kelli Garduno is a 50 year old female here for first colonoscopy Review of Systems Review of Systems: All systems reviewed & are unremarkable except as noted in HPI and below PMFSH Past Medical History Medical History (Updated 07/23/25 @ 13:21 by Moris Tucker MD) Colon cancer screening Diabetic foot Lesion of bone of left lower leg Calf pain Abscess Tachycardia Ankle swelling Finger pain, right Localized swelling, mass and lump, right upper limb Syncope Hypokalemia Screening for breast cancer Fibular abnormality BMI 34.0-34.9,adult Abrasion of knee, left Ataxia Constipation Diabetes mellitus Nausea & vomiting Diabetes mellitus Vitamin D deficiency Callus of foot Open wound of plantar aspect of foot Hypotension Anemia Weight loss Hyponatremia Neuropathy Hives Anxiety Essential (primary) hypertension Hyperlipidemia Type 2 diabetes mellitus without complications Surgical History Surgical History H/O endoscopy No pertinent past surgical history Family History Family History Grandparent Cerebrovascular accident Family history of lung cancer Diabetes mellitus Father No problems noted. Mother COPD (chronic obstructive pulmonary disease) Emphysema lung Sibling No problems noted. Social History Social History Social History: Patient lives with her Laz who will be her surrogate. She has 2 boys and wishes to be a full code at this time. Patient also has 2 cats at home Smoking packs per day: 2 Smoking cigarettes per day: 40.0 Years smoked: 30 Smoking pack-years: 60.00 Smoking status: Former smoker Tobacco type: cigarettes Second hand tobacco smoke exposure: No Additional smoking assessment comments: Quit about 12 years ago Alcohol intake: never Substance use: current Substance use type: marijuana Other substance usage details: smoking, 4x per week Last use: 02/07/25 Do You Feel Safe in your Home?: Yes Lack of Transportation: No Lack of Food: Never True Current Housing: I Have Housing Concerned About Future Housing: No Difficulty Paying Gas/Electric Bills: No Difficulty Paying for Meds: No Currently Unemployed: No Education: High School Diploma/GED Difficulty w/ Childcare or Family Care: Decline to Answer Living arrangements: with family Additional living arrangements comments: Occupation/Education: unemployed Additional occupation/education comments: House Gender identity (if verbalized by the patient): Female Sexual Orientation (if Verbalized by the Patient): Straight or Heterosexual Spiritual care concerns: No Agree to blood products: Yes Meds Home Medications and Allergies Home Medications ?Medication ?Instructions ?Recorded ?Confirmed ?Type metformin 500 mg tablet,extended See Rx Instructions .Route 11/17/24 07/23/25 Rx release 24 hr .COMPLEX #360 tabs empagliflozin 25 mg tablet 25 mg PO DAILY #90 tabs 01/25/25 07/23/25 Rx (Jardiance) blood-glucose sensor (FreeStyle #2 ea 04/15/25 07/18/25 Rx Ant 3 Plus Sensor device) cholecalciferol (vitamin D3) 125 125 mcg PO DAILY #90 caps 04/23/25 07/23/25 Rx mcg (5,000 unit) capsule ferrous sulfate 325 mg (65 mg 325 mg PO DAILY #90 tabs 04/23/25 07/18/25 Rx iron) tablet blood-glucose meter #1 ea 04/25/25 07/18/25 Rx pen needle, diabetic 32 gauge x #100 ea 05/06/25 07/18/25 Rx 3/16 (Comfort EZ Pen [place]) rosuvastatin 40 mg tablet 40 mg PO DAILY #90 tabs 05/09/25 07/23/25 Rx blood sugar diagnostic (OneTouch #200 ea 05/11/25 07/18/25 Rx Ultra Test strips) hydroxyzine HCl 10 mg tablet See Rx Instructions .Route 05/11/25 07/23/25 Rx .COMPLEX #30 tabs lancets 30 gauge (OneTouch Delica #200 ea 05/11/25 07/18/25 Rx Plus Lancet) alcohol swabs (Alcohol Prep Pads) 1 pad topical 4-6XD #100 ea 06/05/25 07/18/25 Rx famotidine 20 mg tablet See Rx Instructions .Route 07/10/25 07/23/25 Rx .COMPLEX #90 tabs sertraline 100 mg tablet See Rx Instructions .Route 07/10/25 07/23/25 Rx .COMPLEX #180 tabs alprazolam 0.5 mg tablet 0.5 mg PO QID PRN anxiety #60 tabs 07/11/25 07/18/25 Rx midodrine 2.5 mg tablet 7.5 mg (3 x 2.5 mg) PO TID 30 days 07/14/25 07/23/25 Rx #270 tabs gabapentin 600 mg tablet See Rx Instructions .Route 07/15/25 07/23/25 Rx .COMPLEX #90 tabs insulin glargine 100 unit/mL (3 20 unit (0.2 mL) subcut QPM #15 mL 07/18/25 07/23/25 Rx mL) subcutaneous pen (Lantus Solostar U-100 Insulin) meloxicam 7.5 mg tablet 7.5 mg PO DAILY #30 tabs 07/18/25 07/23/25 Rx Allergies Allergy/AdvReac Type Severity Reaction Status Date / Time codeine AdvReac Mild Nausea Verified 07/23/25 12:42 GLP-1 AdvReac Severe gastroperes Uncoded 05/02/25 08:43 is Vital Signs Vital Signs - 24 hr 07/23/25 12:44 Temperature 97 F L Pulse Rate 89 Respiratory Rate 18 Blood Pressure 116/79 Pulse Oximetry 100 Oxygen Delivery Room Air Exam Const: General: comfortable and no acute distress HENMT: Face/Nose/Sinus: Normal nares present Eyes: General: appearance normal, both eyes and all related structures Neck: Neck: no JVD Resp: Auscultation: clear to auscultation bilaterally Cardio: Rate: regular rate Rhythm: regular rhythm GI: Inspection: non-distended GI Palp: Yes Soft to palpation Skin: General skin exam: normal color Extrem: General: normal to inspection Psych: Mental Status: mental status grossly normal Assessment and Plan Assessment and plan (1) Colon cancer screening: Code(s): Z12.11 - Encounter for screening for malignant neoplasm of colon Status: Acute Assessment and Plan: colonoscopy
[2025-07-23 13:41] VITALS: BP 128/71; PULSE 81; RESP 27; O2SAT 100
[2025-07-23 13:51] VITALS: BP 128/78; PULSE 85; RESP 18; O2SAT 100
[2025-07-23 14:01] VITALS: BP 146/76; PULSE 79; RESP 23; O2SAT 100
== END 2025-07-23 14:13 | disposition home or self-care (01) ==
PROVIDERS: PCP Family Medicine; Referring Provider Internal Medicine; Visit Provider Internal Medicine Gastroenterology
PROC: 0DJD8ZZ Inspection of Lower Intestinal Tract, Via Natural or Artificial Opening Endoscopic (ICD-10-PCS; CPT 45378; principal; 2025-07-23 13:30)
DX: Z12.11 Encounter for screening for malignant neoplasm of colon (principal); E11.9 Type 2 diabetes mellitus without complications; Z87.891 Personal history of nicotine dependence; F12.90 Cannabis use, unspecified, uncomplicated; E66.9 Obesity, unspecified; Z68.31 Body mass index [BMI] 31.0-31.9, adult
CPT/HCPCS: 45378; 82948; J2003; J2704; J7120